=== PATIENT | female | born 2000 | race Caucasian/White ===

== ENCOUNTER 2020-06-27 17:26 | Outpatient (REF) | payer MEDICAID, SELFPAY | END 2020-06-27 17:27 | disposition home or self-care (01) | LOC: HO.LAB 17:26 | PROVIDERS: PCP Nurse Practitioner Pediatrics; Visit Provider Internal Medicine | DX: Z12.31 Encounter for screening mammogram for malignant neoplasm of breast (principal) | CPT/HCPCS: 36415; C9803; U0003 ==

== ENCOUNTER 2020-09-06 12:50 | Outpatient (REF) | payer MEDICAID, SELFPAY ==
[2020-09-06 13:58] LABS: COVID-19 Test Negative (Negative); IDNOW Serial# 55D5AD1C
== END 2020-09-06 12:51 | disposition home or self-care (01) ==
LOC: HO.LAB 12:50
PROVIDERS: Visit Provider Internal Medicine
DX: Z20.822 Contact with and (suspected) exposure to COVID-19 (principal)
CPT/HCPCS: 36415; 87635; C9803

== ENCOUNTER → 2021-10-22 10:21 | Outpatient (BNV) | payer MEDICAID, SELFPAY | PROVIDERS: PCP Nurse Practitioner; Visit Provider Internal Medicine | DX: D64.9 Anemia, unspecified (principal) | CPT/HCPCS: 99203; 99213 ==

== ENCOUNTER 2022-05-13 09:52 | Outpatient (REF) | payer MEDICAID, SELFPAY ==
[2022-05-13 10:27] LABS: MANUAL DIFF FLAG NO
[2022-05-13 11:44] LABS: Basophils Percent Auto 0.5 % (0-2); Eosinophils Absolute Auto 0.7 X10*3/uL (0.0-0.4); Eosinophils Percent Auto 11.3 % (0-4); Hematocrit 39.4 % (37.0-47.0); Hemoglobin 12.6 g/dl (12.0-16.0); Imm Gran Abs Auto 0.01 X10*3/uL (0.00-0.03); Imm Gran Pct Auto 0.2 % (0.0-0.4); Lymphocytes Absolute Auto 2.5 X10*3/uL (1.2-4.9); Lymphocytes Percent Auto 40.6 % (20-40); Mean Corpuscular Volume 90.6 fL (80.0-98.0); Mean Platelet Volume 11.6 fL (9.4-12.3); Monocytes Absolute Auto 0.7 X10*3/uL (0.1-1.2); Neutrophils Absolute Auto 2.3 x10*3/uL (2.0-8.3); Neutrophils Percent Auto 36.4 % (45-73); Platelet Count 297 X10*3/uL (160-400); Red Blood Count 4.35 X10*6/uL (4.20-5.50); Red Cell Distribution Width 12.7 % (11.0-16.0); White Blood Count 6.2 X10*3/uL (4.8-10.8)
[2022-05-13 14:39] LABS: Alanine Aminotransferase 15 U/L (0-31); Albumin Level 4.2 g/dL (3.5-5.0); Alkaline Phosphatase 42 U/L (39-117); Aspartate Amino Transferase 15 U/L (5-31); Bilirubin Direct < 0.2 mg/dL (0.0-0.5); Bilirubin Total 0.5 mg/dL (0.0-1.0); Total Protein 6.9 g/dL (6.5-8.0)
== END 2022-05-13 09:53 | disposition home or self-care (01) ==
LOC: HO.LAB 09:52
PROVIDERS: PCP Nurse Practitioner; Visit Provider Nurse Practitioner
DX: A04.8 Other specified bacterial intestinal infections (principal); R10.13 Epigastric pain; K21.9 Gastro-esophageal reflux disease without esophagitis
CPT/HCPCS: 36415; 80076; 85025; 99212

== ENCOUNTER 2022-05-20 11:03 | Outpatient (REF) | payer MEDICAID, SELFPAY | END 2022-05-20 11:04 | disposition home or self-care (01) | LOC: HO.LNP 11:03 | PROVIDERS: Visit Provider Nurse Practitioner | DX: A04.8 Other specified bacterial intestinal infections (principal) | CPT/HCPCS: 87338 ==

== ENCOUNTER 2022-07-13 07:28 | Outpatient (REF) | payer MEDICAID, SELFPAY ==
--- NOTE | ~2022-07-13 | US_ITS ---
EXAMINATION: US ABDOMEN COMPLETE CLINICAL INFORMATION: H. Pylori infection. COMPARISON: None TECHNIQUE: Real-time imaging of the abdominal viscera. FINDINGS: PANCREAS: Normal. ABDOMINAL AORTA: The proximal, mid, and distal segments are normal in caliber. INFERIOR VENA CAVA: Visualized portions are normal. LIVER: Normal. The liver is normal in size. The liver contour is normal. Parenchymal echogenicity is normal. No focal hepatic lesion. There is no intrahepatic biliary duct dilatation seen. GALLBLADDER: Normal. The gallbladder is physiologically distended without evidence of stones, sludge, polyps, wall thickening or pericholecystic fluid. COMMON BILE DUCT: Normal in caliber measuring 0.24 cm in diameter. RIGHT KIDNEY: Normal. No hydronephrosis. No renal calculi or focal parenchymal lesions. The kidney measures 12.4 cm in maximum dimension. LEFT KIDNEY: Normal. No hydronephrosis. No renal calculi or focal parenchymal lesions. The kidney measures 11.7 cm in maximum dimension. SPLEEN: Normal. The spleen measures 10.9 cm in maximum dimension. FREE FLUID: None. US/US abdomen complete IMPRESSION: Unremarkable examination.
== END 2022-07-13 07:29 | disposition home or self-care (01) ==
LOC: HO.US 07:28
PROVIDERS: Visit Provider Nurse Practitioner
DX: A04.8 Other specified bacterial intestinal infections (principal)
CPT/HCPCS: 76700

== ENCOUNTER → 2022-07-22 08:36 | Outpatient (BNVA) | payer MEDICAID, SELFPAY | PROVIDERS: PCP Nurse Practitioner; Visit Provider Nurse Practitioner | DX: A04.8 Other specified bacterial intestinal infections (principal); K21.9 Gastro-esophageal reflux disease without esophagitis; R19.5 Other fecal abnormalities; Z79.899 Other long term (current) drug therapy | CPT/HCPCS: 99212 ==

== ENCOUNTER → 2022-10-14 08:59 | Outpatient (BNVA) | payer MEDICAID, SELFPAY | PROVIDERS: PCP Registered Nurse; Visit Provider Nurse Practitioner | DX: K21.9 Gastro-esophageal reflux disease without esophagitis (principal); A04.8 Other specified bacterial intestinal infections; R15.9 Full incontinence of feces | CPT/HCPCS: 99212 ==

== ENCOUNTER 2023-04-20 08:45 | Outpatient (AMB) | payer MEDICAID, SELFPAY ==
--- NOTE | 2023-04-20 08:49 | A.OFFVIS_ITS ---
Intake Vital Signs 04/20/23 08:52 Height 5 ft 11 in Weight 264 lb 8.875 oz BMI 36.9 BP 124/58 L Blood Pressure Location Lt brachial Position Sitting Pulse 69 Intake Visit Reasons: 6 month follow up Allergies No Known Allergies Allergy (Verified 10/14/22 09:07) HPI 6 month follow up HPI Details Assessment & Plan (1) GERD (gastroesophageal reflux diseas e): Code(s): K21.9 - Gastro-esophageal reflux disease without esophagitis Plan: She continues to do well on her bid famotidine. I know I would be happy to see her at. regular intervals but she also contuse cuss whether not her primary care provider wants to prescribe her famotidine going forward since she has minimal other comorbid health problems it is unlikely that they will be any worsening of this condition. For now will set up a 6 month follow-up and if she decides to follow with her primary C can simply cancel this arrangement. (2) H. pylori infection: Comment: Confirmed eradicated by stool antigen 04/2022 Code(s): A04.8 - Other specified bacterial intestinal infections (3) Loose stools: Code(s): R19.5 - Other fecal abnormalities TODAY'S VISIT She had a week of diarrhea, but it has resolved. She no longer takes famotidine and has been generally well. She appointment with me because she had some diarrhea a couple of weeks ago that went on for week but then it resolved without any treatment. This made her realize it was probably something she ate or passing GI virus. ROV prn. [facility] Medical History Pilonidal cyst Depression Anemia Surgical History History of back surgery Family History Maternal Grandmother Colon cancer Maternal Uncle Colon cancer Mother History of hysterectomy Hidradenitis suppurativa (Reviewed 04/20/23 @ 08:53 by NICOLE Plunkett Household Members: Family Housing: House Are you a primary daycare manager to a significant other at home: No Do you presently have visiting nurse or other home services: No Alcohol intake: current Alcohol intake frequency: holidays/special occasions only Patient Tobacco Use Status: Never used Tobacco service: No Current occupational status: employed [employer] Denies fatigue, Denies fever(s), Denies night sweats, Denies poor appetite and Denies weight loss Eyes Details: glasses Reports requires corrective lenses ENT Reports Normal hearing present, Denies dental pain, Denies dysphagia, Denies hearing loss, Denies mouth pain, Denies odynophagia, Denies throat swelling, Denies tongue swelling and Reports other (Dentition adequate) Card Reports no additional complaints Resp Reports no additional complaints GI Denies abdominal pain, Denies melena, Denies bloating, Denies hematochezia, Denies constipation, Denies GI cramping, Denies dysphagia, Denies excessive flatus, Denies early satiety, Denies heartburn, Denies diarrhea, Denies nausea, Denies odynophagia, Denies vomiting and Denies hematemesis Skin/Breast Denies pruritus, Denies lesions, Denies rash and Denies jaundice Neuro Reports Normal hearing present and Denies Abnormal speech present Endo Denies fatigue Aller/Immun Denies throat swelling and Denies tongue swelling Physical Exam Vital Signs: Last Vital Signs Pulse 69 04/20/23 08:52 BP 124/58 L 04/20/23 08:52 BMI result Body Mass Index 36.9 Const General: cooperative, no acute distress, well developed and well groomed Nutritional Appearance: well nourished and obese Orientation/consciousness: oriented to person, oriented to place and oriented to time Limitations: No language barrier HEENT Head: Yes normocephalic and Yes atraumatic Eyes General: appearance normal, both eyes and all related structures Pupils: Equal, round and reactive pupils present Neck Neck: Yes normal visual inspection and Yes no lymphadenopathy Thyroid: Thyroid normal Resp Effort & Inspection: normal respiratory effort and able to speak in complete sentences Auscultation: clear to auscultation bilaterally Cardio Rate: regular rate Rhythm: regular rhythm Heart sounds: Normal, physiologic split S2 sound present Peripheral pulses: radial pulses present and posterior tibial pulses present GI Inspection: No distended, Yes Abdominal panniculus present and Yes obesity Palpation (GI): Soft to palpation, nontender, no guarding, not rigid and No hepatosplenomegaly present Percussion: Yes normal to percussion Auscultation: normal bowel sounds Rectal Exam - Female: deferred Skin General skin exam: no rashes or lesions noted, turgor normal, skin not dry, no jaundice, No spider nevi and no striae Rashes: no rashes Nails: normal Neuro General: oriented to person, oriented to place and oriented to time Cranial nerves: Yes Equal, round and reactive pupils present and Yes Normal hearing present Speech: No Abnormal speech present Extrem General: Yes normal to inspection, No clubbing, No cyanosis and No edema Psych Appearance: grossly normal and well kempt Mental Status: mental status grossly normal Speech and movement: Normal speech and movement present Affect: normal affect Attitude: cooperative Thought process: Normal thought process present and not confabulating Thought content: Normal thought content present Insight: Fair insight present (Psych) Judgement: Fair judgement present (Psych) Assessment & Plan Assessment & Plan (1) GERD (gastroesophageal reflux disease): Code(s): K21.9 - Gastro-esophageal reflux disease without esophagitis (2) H. pylori infection: Comment: Confirmed eradicated by stool antigen 04/2022 Code(s): A04.8 - Other specified bacterial intestinal infections (3) Loose stools: Code(s): R19.5 - Other fecal abnormalities Plan She had a week of diarrhea, but it has resolved. She no longer takes famotidine and has been generally well. She appointment with me because she had some diarrhea a couple of weeks ago that went on for week but then it resolved without any treatment. This made her realize it was probably something she ate or passing GI virus. ROV prn. Coding Level of Care Code Est Pt Level 3 (45640) Diagnoses GERD (gastroesophageal reflux disease) K21.9 H. pylori infection A04.8 Loose stools R19.5
--- NOTE | 2023-04-20 08:49 | MHC.OFFVIS ---
Intake Vital Signs 04/20/23 08:52 Height 5 ft 11 in Weight 264 lb 8.875 oz BMI 36.9 BP 124/58 L Blood Pressure Location Lt brachial Position Sitting Pulse 69 Intake Visit Reasons: 6 month follow up Intake Note: Estrella presents in the office as a 6 month follow up. CC: She states that she is not having any concerns. She was having diarrhea but it has since subsided. Allergies No Known Allergies Allergy (Verified 10/14/22 09:07) [facility] Medical History Pilonidal cyst Depression Anemia Surgical History History of back surgery Family History Maternal Grandmother Colon cancer Maternal Uncle Colon cancer Mother History of hysterectomy Hidradenitis suppurativa Social History Household Members: Family Housing: House Are you a primary home health care worker to a significant other at home: No Do you presently have visiting nurse or other home services: No Alcohol intake: current Alcohol intake frequency: holidays/special occasions only Patient Tobacco Use Status: Never used Tobacco service: No Current occupational status: employed Coding
[2023-04-20 08:52] VITALS: BP 124/58; PULSE 69; BMI 36.9
== END 2023-04-20 09:18 | disposition home or self-care (01) ==
PROVIDERS: PCP Registered Nurse; Visit Provider Nurse Practitioner
DX: K21.9 Gastro-esophageal reflux disease without esophagitis (principal); A04.8 Other specified bacterial intestinal infections; R19.5 Other fecal abnormalities
CPT/HCPCS: 99213

== ENCOUNTER → 2023-04-20 08:45 | Outpatient (BNVA) | payer MEDICAID, SELFPAY | PROVIDERS: PCP Registered Nurse; Visit Provider Nurse Practitioner | DX: K21.9 Gastro-esophageal reflux disease without esophagitis (principal); R19.5 Other fecal abnormalities; A04.8 Other specified bacterial intestinal infections | CPT/HCPCS: 99212 ==

== ENCOUNTER 2023-07-09 10:29 | Outpatient (REF) | payer MEDICAID, SELFPAY ==
[2023-07-09 14:24] LABS: MANUAL DIFF FLAG NO
[2023-07-09 14:30] LABS: Basophils Percent Auto 0.5 % (0-2); Eosinophils Absolute Auto 0.6 X10*3/uL (0.0-0.4); Hematocrit 35.1 % (37.0-47.0); Hemoglobin 10.9 g/dl (12.0-16.0); Imm Gran Abs Auto 0.01 X10*3/uL (0.00-0.03); Imm Gran Pct Auto 0.2 % (0.0-0.4); Lymphocytes Absolute Auto 2.4 X10*3/uL (1.2-4.9); Lymphocytes Percent Auto 41.1 % (20-40); Mean Corpuscular HGB Conc 31.1 g/dl (31.0-35.0); Mean Corpuscular Hemoglobin 25.6 pg (27.0-33.0); Mean Corpuscular Volume 82.6 fL (80.0-98.0); Mean Platelet Volume 11.8 fL (9.4-12.3); Monocytes Absolute Auto 0.7 X10*3/uL (0.1-1.2); Monocytes Percent Auto 11.7 % (2-11); Neutrophils Absolute Auto 2.2 x10*3/uL (2.0-8.3); Neutrophils Percent Auto 36.5 % (45-73); Platelet Count 308 X10*3/uL (160-400); Red Blood Count 4.25 X10*6/uL (4.20-5.50); Red Cell Distribution Width 14.6 % (11.0-16.0); White Blood Count 5.9 X10*3/uL (4.8-10.8)
[2023-07-09 14:53] LABS: Alanine Aminotransferase 13 U/L (0-31); Albumin Level 4.3 g/dL (3.5-5.0); Alkaline Phosphatase 39 U/L (39-117); Anion Gap 14 (12-20); Aspartate Amino Transferase 13 U/L (5-31); Bilirubin Total 0.4 mg/dL (0.0-1.0); Blood Urea Nitrogen 11 mg/dL (9-16); Calcium 9.8 mg/dL (8.4-10.2); Carbon Dioxide 24 mmol/L (22-29); Chloride 105 mmol/L (96-108); Cholesterol 198 mg/dL (<200); Estimated Glomerular Filt Rate > 60; Glucose Random 73 mg/dL (60-115); HDL Cholesterol 56 mg/dL (>40); LDL Cholesterol Calculated 125 mg/dL (<100); Potassium 4.7 mmol/L (3.3-5.1); Sodium 138 mmol/L (135-145); Total Protein 7.9 g/dL (6.5-8.0); Triglycerides 88 mg/dL (<150)
[2023-07-09 14:58] LABS: TSH reflex Free T4 1.41 uIU/mL (0.32-4.0)
[2023-07-09 15:06] LABS: Estimated Average Glucose 111 mg/dL; Hemoglobin A1c % 5.5 % (<6.0)
[2023-07-10 03:50] LABS: HIV AB/AG Nonreactive (Nonreactive); HIV Num 1 0.06 S/CO (0.00-0.99)
[2023-07-10 14:03] LABS: C. trachomatis RNA TMA NOT DETECTED (NOT DETECTED); Candida glabrata RNA NOT DETECTED (NOT DETECTED); Candida species RNA NOT DETECTED (NOT DETECTED); N. gonorrhoeae RNA TMA NOT DETECTED (NOT DETECTED); Trichomonas vaginalis RNA NOT DETECTED (NOT DETECTED)
[2023-07-12 15:33] LABS: HCV Log PCR <1.18 NOT DETECTED Log IU/mL (NOT DETECTED); HepC Viral Load <15 NOT DETECTED IU/mL (NOT DETECTED)
[2023-07-12 20:28] LABS: RPR Rapid Plasma Reagin NON-REACTIVE (NON-REACTIVE)
== END 2023-07-09 10:30 | disposition home or self-care (01) ==
LOC: HO.CHCLDS 10:29
PROVIDERS: Visit Provider Registered Nurse
DX: Z00.00 Encounter for general adult medical examination without abnormal findings (principal); N89.8 Other specified noninflammatory disorders of vagina
CPT/HCPCS: 36415; 80053; 80061; 81513; 83036; 84443; 85025; 86592; 87389; 87481; 87491; 87522; 87591; 87661

== ENCOUNTER 2023-10-11 11:20 | Outpatient (REF) | payer MEDICAID, SELFPAY ==
[2023-10-11 14:44] LABS: Basophils Percent Auto 0.8 % (0-2); Eosinophils Absolute Auto 0.4 X10*3/uL (0.0-0.4); Eosinophils Percent Auto 10.1 % (0-4); Hematocrit 33.6 % (37.0-47.0); Hemoglobin 10.3 g/dl (12.0-16.0); Imm Gran Abs Auto 0.01 X10*3/uL (0.00-0.03); Imm Gran Pct Auto 0.3 % (0.0-0.4); Lymphocytes Absolute Auto 1.3 X10*3/uL (1.2-4.9); Lymphocytes Percent Auto 32.5 % (20-40); MANUAL DIFF FLAG SCAN; Mean Corpuscular HGB Conc 30.7 g/dl (31.0-35.0); Mean Corpuscular Hemoglobin 24.6 pg (27.0-33.0); Mean Corpuscular Volume 80.2 fL (80.0-98.0); Mean Platelet Volume 11.9 fL (9.4-12.3); Monocytes Absolute Auto 0.8 X10*3/uL (0.1-1.2); Monocytes Percent Auto 20.2 % (2-11); Neutrophils Absolute Auto 1.4 x10*3/uL (2.0-8.3); Neutrophils Percent Auto 36.1 % (45-73); Platelet Count 263 X10*3/uL (160-400); Red Blood Count 4.19 X10*6/uL (4.20-5.50); Red Cell Distribution Width 15.3 % (11.0-16.0); SCAN SMEAR FLAG 1
[2023-10-11 15:05] LABS: C Reactive Protein < 0.10 mg/dL (< or = 0.50); Iron 25 mcg/dL (30-160); Percent Iron Saturation 7 % (15-50); Total Iron Binding Capacity 356 mcg/dL (228-428); Unsaturated Iron Binding 331 ug/dL
[2023-10-11 15:18] LABS: Vitamin B12 480 pg/mL (200-900)
[2023-10-11 15:28] LABS: SLIDE REVIEW VERIFIED
[2023-10-11 15:31] LABS: Ferritin 12 ng/mL (10-122); Vitamin D 25-OH Total 15.1 ng/mL (>30)
[2023-10-11 15:41] LABS: Monotest Negative (Negative)
[2023-10-11 19:48] LABS: Erythrocyte Sedimentation Rate 12 MM/HR (0-20)
[2023-10-12 08:45] LABS: HIV Num 1 0.07 S/CO (0.00-0.99)
[2023-10-12 08:46] LABS: HIV AB/AG Nonreactive (Nonreactive)
== END 2023-10-11 11:21 | disposition home or self-care (01) ==
LOC: HO.CHCLDS 11:20
PROVIDERS: Registered Nurse; Visit Provider Family Medicine
DX: R59.0 Localized enlarged lymph nodes (principal); D64.9 Anemia, unspecified
CPT/HCPCS: 36415; 82306; 82607; 82728; 83540; 85025; 85652; 86140; 86308; 87389

== ENCOUNTER 2023-10-19 14:05 | Outpatient (REF) | payer MEDICAID, SELFPAY ==
--- NOTE | ~2023-10-19 | US_ITS ---
EXAMINATION: US SOFT TISSUE HEAD/NECK CLINICAL INFORMATION: Localized enlarged lymph nodes, persistent mass in right occipital chain. Question enlarged lymph node right occipital region. COMPARISON: None available. TECHNIQUE: Linear transducer grayscale and color Doppler examination of the right occipital area. FINDINGS: Targeted ultrasound images were obtained by the drafter structural of the area of concern as indicated by the patient in the right occipital region. There is a 1.0 x 0.4 x 1.2 cm hypoechoic, wider than tall, complex cystic versus solid mass in the area of concern indicated by the patient in the soft tissues of the right occipital region. No internal vascularity was demonstrated. Margins are mildly irregular. Radiologist was not in attendance. Images were later provided for interpretation. US/US soft tiss head and/or neck IMPRESSION: A 1.2 cm complex lesion in the soft tissues in the area of concern indicated by the patient to the right occipital region of uncertain etiology. Correlation with clinical exam recommended to determine further management including possible additional imaging, treatment, biopsy or follow-up. Follow-up ultrasound could be considered in 3 months.
== END 2023-10-19 14:06 | disposition home or self-care (01) ==
LOC: HO.US 14:05
PROVIDERS: PCP Registered Nurse; Visit Provider Family Medicine
DX: R59.0 Localized enlarged lymph nodes (principal)
CPT/HCPCS: 76536

== ENCOUNTER 2023-11-22 09:49 | Outpatient (REF) | payer MEDICAID, SELFPAY ==
[2023-11-22 13:15] LABS: MANUAL DIFF FLAG NO
[2023-11-22 13:20] LABS: Basophils Percent Auto 0.9 % (0-2); Eosinophils Absolute Auto 0.3 X10*3/uL (0.0-0.4); Eosinophils Percent Auto 6.6 % (0-4); Hematocrit 30.3 % (37.0-47.0); Hemoglobin 9.4 g/dl (12.0-16.0); Lymphocytes Percent Auto 44.5 % (20-40); Mean Corpuscular Hemoglobin 24.9 pg (27.0-33.0); Mean Corpuscular Volume 80.4 fL (80.0-98.0); Monocytes Absolute Auto 0.5 X10*3/uL (0.1-1.2); Monocytes Percent Auto 10.8 % (2-11); Neutrophils Absolute Auto 1.7 x10*3/uL (2.0-8.3); Neutrophils Percent Auto 37.2 % (45-73); Platelet Count 279 X10*3/uL (160-400); Red Blood Count 3.77 X10*6/uL (4.20-5.50); Red Cell Distribution Width 17.2 % (11.0-16.0); White Blood Count 4.5 X10*3/uL (4.8-10.8)
[2023-11-22 13:45] LABS: Unsaturated Iron Binding 290 ug/dL
[2023-11-22 13:47] LABS: Iron 21 mcg/dL (30-160); Percent Iron Saturation 7 % (15-50); Total Iron Binding Capacity 311 mcg/dL (228-428)
[2023-11-22 15:01] LABS: Ferritin 21 ng/mL (10-122); HCG Quantitative < 2 mIU/mL; Vitamin D 25-OH Total 19.6 ng/mL (>30)
[2023-11-23 14:34] LABS: Follicle Stimulating Hormone 8.8 mIU/mL; Prolactin 10.1 ng/mL
[2023-11-23 17:47] LABS: Cytomegalovirus Ab IgG <0.60 U/mL; Cytomegalovirus Ab IgM <30.00 AU/mL; EBV-VCA IgG Ab >750.00 U/mL; EBV-VCA IgM Ab <36.00 U/mL
[2023-11-26 17:53] LABS: Testosterone, Free 3.8 pg/mL (0.1-6.4); Testosterone, Total 26 ng/dL (2-45)
== END 2023-11-22 09:50 | disposition home or self-care (01) ==
LOC: HO.CHCLDS 09:49
PROVIDERS: Family Medicine; Visit Provider Registered Nurse
DX: R59.0 Localized enlarged lymph nodes (principal); D50.9 Iron deficiency anemia, unspecified; E55.9 Vitamin D deficiency, unspecified; N92.6 Irregular menstruation, unspecified
CPT/HCPCS: 36415; 82306; 82728; 83001; 83540; 84146; 84402; 84403; 84702; 85025; 86644; 86645; 86664; 86665

== ENCOUNTER 2024-03-15 10:52 | Outpatient (AMB) | payer MEDICAID, SELFPAY ==
[2024-03-15 10:54] VITALS: BP 105/51; PULSE 80; BMI 35.5
--- NOTE | 2024-03-15 10:54 | A.OFFVIS_ITS ---
Vital Signs 03/15/24 10:54 Height 5 ft 11 in Weight 254 lb 6.615 oz BMI 35.5 BP 105/51 L Blood Pressure Location Rt brachial Position Sitting Pulse 80 Intake Visit Reasons: Pt request abd pain Intake Note: Patient in office today in follow up for abdominal pain. CC: Patient c/o diarrhea like if I was taking laxative , nausea, and epigastric pain that began at the beginning of this month. Per patient she gets this symptoms about twice a week. Web Site Designer Required: No Accompanied by: Self / Same As Patient Allergies No Known Allergies Allergy (Verified 03/15/24 10:55) HPI HPI Pt request abd pain: Details: Assessment & Plan (1) GERD (gastroesophageal reflux disease): Code(s): K21.9 - Gastro-esophageal reflux disease without esophagitis (2) H. pylori infection: Comment: Confirmed eradicated by stool antigen 04/2022 Code(s): A04.8 - Other specified bacterial intestinal infections (3) Loose stools: Code(s): R19.5 - Other fecal abnormalities Plan She had a week of diarrhea, but it has resolved. She no longer takes famotidine and has been generally well. She appointment with me because she had some diarrhea a couple of weeks ago that went on for week but then it resolved without any treatment. This made her realize it was probably something she ate or passing GI virus. ROV prn. TODAY'S VISIT She continues to have worsening diarrhea with associated nausea and epigastric pain that is 7/10. It is describes as colicky and will spread at times to the periumbilical and suprapubic area. No diet changes, only new meds are iron oral and vit D. No fevers/chills, no raw or undercooked foods, no known sick contacts. Will get blood and stool samples to exclude infection vs food allergies vx IBD. ROV 6 weeks. [facility] Medical History Pilonidal cyst Depression Anemia Surgical History History of back surgery Family History Maternal Grandmother Colon cancer Maternal Uncle Colon cancer Mother History of hysterectomy Hidradenitis suppurativa Social History Household Members: Family Housing: House Are you a primary respite care provider to a significant other at home: No Do you presently have visiting nurse or other home services: No Alcohol intake: current Alcohol intake frequency: holidays/special occasions only Patient Tobacco Use Status: Never used Tobacco service: No Current occupational status: employed [employer] Denies fatigue, Denies fever(s), Denies night sweats, Denies poor appetite and Denies weight loss ENT Reports Normal hearing present, Denies dental pain, Denies dysphagia, Denies hearing loss, Denies mouth pain, Denies odynophagia, Denies throat swelling, Denies tongue swelling and Reports other (Dentition adequate) Card Reports no additional complaints Resp Reports no additional complaints GI Details: Denies abdominal pain, Denies melena, Denies bloating, Denies hematochezia, Denies constipation, Reports GI cramping, Denies dysphagia, Denies excessive flatus, Denies early satiety, Denies heartburn, Reports diarrhea, Denies nausea, Denies odynophagia, Denies vomiting and Denies hematemesis Skin/Breast Denies pruritus, Denies lesions, Denies rash and Denies jaundice Neuro Reports Normal hearing present and Denies Abnormal speech present Endo Denies fatigue Aller/Immun Denies throat swelling and Denies tongue swelling Physical Exam Vital Signs: Last Vital Signs Pulse 80 03/15/24 10:54 BP 105/51 L 03/15/24 10:54 BMI result Body Mass Index 35.5 Const General: cooperative, no acute distress, well developed and well groomed Nutritional Appearance: well nourished and obese Orientation/consciousness: oriented to person, oriented to place and oriented to time Limitations: No language barrier HEENT Head: Yes normocephalic and Yes atraumatic Eyes General: appearance normal, both eyes and all related structures Pupils: Equal, round and reactive pupils present Neck Neck: Yes normal visual inspection and Yes no lymphadenopathy Thyroid: Thyroid normal Resp Effort & Inspection: normal respiratory effort and able to speak in complete sentences Auscultation: clear to auscultation bilaterally Cardio Rate: regular rate Rhythm: regular rhythm Heart sounds: Normal, physiologic split S2 sound present Peripheral pulses: radial pulses present and posterior tibial pulses present GI Inspection: No distended, No Abdominal panniculus present and Yes obesity Palpation (GI): Soft to palpation, nontender, no guarding, not rigid and No hepatosplenomegaly present Percussion: Yes normal to percussion Auscultation: normal bowel sounds Rectal Exam - Female: deferred Skin General skin exam: no rashes or lesions noted, turgor normal, skin not dry, no jaundice, No spider nevi and no striae Rashes: no rashes Nails: normal Neuro General: oriented to person, oriented to place and oriented to time Cranial nerves: Yes Equal, round and reactive pupils present and Yes Normal hearing present Speech: No Abnormal speech present Extrem General: Yes normal to inspection, No clubbing, No cyanosis and No edema Psych Appearance: grossly normal and well kempt Mental Status: mental status grossly normal Speech and movement: Normal speech and movement present Affect: normal affect Attitude: cooperative Thought process: Normal thought process present and not confabulating Thought content: Normal thought content present Insight: Fair insight present (Psych) Judgement: Fair judgement present (Psych) Assessment & Plan Assessment & Plan (1) Acute diarrhea: Code(s): R19.7 - Diarrhea, unspecified Category: Medical (2) Epigastric pain: Code(s): R10.13 - Epigastric pain Category: Medical Plan She continues to have worsening diarrhea with associated nausea and epigastric pain that is 7/10. It is describes as colicky and will spread at times to the periumbilical and suprapubic area. No diet changes, only new meds are iron oral and vit D. No fevers/chills, no raw or undercooked foods, no known sick contacts. Will get blood and stool samples to exclude infection vs food allergies vx IBD. ROV 6 weeks. Orders: Orders Transglutaminase Ab IgG 03/15/24 R10.13 - Epigastric pain, R19.7 - Diarrhea, unspecified CDiff Gene PCR 03/15/24 R10.13 - Epigastric pain, R19.7 - Diarrhea, unspecified GI Panel 03/15/24 R10.13 - Epigastric pain, R19.7 - Diarrhea, unspecified Pancreatic Elastase-1 03/15/24 R10.13 - Epigastric pain, R19.7 - Diarrhea, unspecified Rast Allergen 03/15/24 R10.13 - Epigastric pain, R19.7 - Diarrhea, unspecified Transglutaminase IgA 03/15/24 R10.13 - Epigastric pain, R19.7 - Diarrhea, unspecified C Reactive Protein 03/15/24 R10.13 - Epigastric pain, R19.7 - Diarrhea, unspecified Coding Level of Care Code Est Pt Level 3 (94956) Diagnoses Acute diarrhea R19.7 Epigastric pain R10.13
== END 2024-03-15 11:29 | disposition home or self-care (01) ==
PROVIDERS: PCP Registered Nurse; Visit Provider Nurse Practitioner
DX: R19.7 Diarrhea, unspecified (principal); R10.13 Epigastric pain
CPT/HCPCS: 99213

== ENCOUNTER 2024-03-15 10:52 | Outpatient (REF) | payer MEDICAID, SELFPAY ==
[2024-03-15 12:45] LABS: C Reactive Protein < 0.10 mg/dL (< or = 0.50)
[2024-03-17 12:42] LABS: Transglutaminase Ab IgG <1.0 U/mL; Transglutaminase IgA <1.0 U/mL
== END 2024-03-15 10:53 | disposition home or self-care (01) ==
LOC: HO.LAB 10:52
PROVIDERS: PCP Registered Nurse; Visit Provider Nurse Practitioner
DX: R10.13 Epigastric pain (principal); R19.7 Diarrhea, unspecified
CPT/HCPCS: 36415; 86140; 86364; 99212

== ENCOUNTER 2024-03-28 13:38 | Outpatient (REF) | payer MEDICAID, SELFPAY ==
[2024-03-28 14:39] LABS: CDiff Gene PCR NEGATIVE (Negative)
[2024-03-28 15:11] LABS: Adenovirus F 40/41 Not Detected (Not Detect.); Astrovirus Not Detected (Not Detect.); Campylobacter Not Detected (Not Detect.); Cryptosporidium Not Detected (Not Detect.); Cyclospora cayetanensis Not Detected (Not Detect.); E. coli EAEC Detected (Not Detect.); E. coli EPEC Not Detected (Not Detect.); E. coli ETEC Not Detected (Not Detect.); E. coli STEC Not Detected (Not Detect.); Entamoeba histolytica Not Detected (Not Detect.); Giardia lamblia Not Detected (Not Detect.); Norovirus GI/GII Not Detected (Not Detect.); Plesiomonas shigelloides Not Detected (Not Detect.); Rotavirus A Not Detected (Not Detect.); Salmonella Not Detected (Not Detect.); Sapovirus Not Detected (Not Detect.); Shigella sp./EIEC Not Detected (Not Detect.); Vibrio Not Detected (Not Detect.); Vibrio Cholerae Not Detected (Not Detect.); Yersinia enterocolitica Not Detected (Not Detect.)
[2024-04-07 18:49] LABS: Pancreatic Elastase-1 >500 mcg/g
== END 2024-03-28 13:39 | disposition home or self-care (01) ==
LOC: HO.LNP 13:38
PROVIDERS: Visit Provider Nurse Practitioner
DX: R19.7 Diarrhea, unspecified (principal); R10.13 Epigastric pain
CPT/HCPCS: 82656; 87493; 87507

== ENCOUNTER 2024-05-02 12:43 | Outpatient (AMB) | payer MEDICAID, SELFPAY ==
[2024-05-02 12:46] VITALS: BP 132/59; PULSE 80; BMI 35.5
--- NOTE | 2024-05-02 12:46 | A.OFFVIS_ITS ---
Vital Signs 05/02/24 12:46 Height 5 ft 11 in Weight 254 lb 13.67 oz BMI 35.5 BP 132/59 L Blood Pressure Location Lt brachial Position Sitting Pulse 80 Intake Visit Reasons: 6 week follow up Intake Note: Estrella returns in 6 weeks follow up of labs. CC: Patient states that she is not having so much diarrhea now. She reports epigastric pain and nausea. Assistant Portfolio Manager Required: No Accompanied by: Grand Parent Allergies No Known Allergies Allergy (Verified 05/02/24 12:51) HPI HPI 6 week follow up: Details: Assessment & Plan (1) Acute diarrhea: Code(s): R19.7 - Diarrhea, unspecified Category: Medical (2) Epigastric pain: Code(s): R10.13 - Epigastric pain Category: Medical Plan She continues to have worsening diarrhea with associated nausea and epigastric pain that is 7/10. It is describes as colicky and will spread at times to the periumbilical and suprapubic area. No diet changes, only new meds are iron oral and vit D. No fevers/chills, no raw or undercooked foods, no known sick contacts. Will get blood and stool samples to exclude infection vs food allergies vx IBD. ROV 6 weeks. Orders: Orders Transglutaminase Ab IgG 03/15/24 R10.13 - Epigastric pain, R19.7 - Diarrhea, unspecified CDiff Gene PCR 03/15/24 R10.13 - Epigastric pain, R19.7 - Diarrhea, unspecified GI Panel 03/15/24 R10.13 - Epigastric pain, R19.7 - Diarrhea, unspecified Pancreatic Elastase-1 03/15/24 R10.13 - Epigastric pain, R19.7 - Diarrhea, unspecified Rast Allergen 03/15/24 R10.13 - Epigastric pain, R19.7 - Diarrhea, unspecified Transglutaminase IgA 03/15/24 R10.13 - Epigastric pain, R19.7 - Diarrhea, unspecified C Reactive Protein 03/15/24 R10.13 - Epigastric pain, R19.7 - Diarrhea, unspecified LABS Laboratory Tests 03/15/24 03/28/24 12:06 12:40 C-Reactive Protein < 0.10 Stool Pancreat Elastase >500 Tiss Transglutamin IgG <1.0 Tiss Transglutamin IgA <1.0 RAST PANEL SHOWS NO SIGNIFICANT FOOD ALLERGIES 03/28/24-[address]: ORDERED: GI Panel Test Result Flag Reference Campylobacter Not Detected Not Detect. P. shigelloides Not Detected Not Detect. Salmonella Not Detected Not Detect. Vibrio Not Detected Not Detect. Vibrio Cholerae Not Detected Not Detect. Y. enterocolit. Not Detected Not Detect. E. coli EAEC Detected A Not Detect. E. coli EPEC Not Detected Not Detect. E. coli ETEC Not Detected Not Detect. E. coli STEC Not Detected Not Detect. E. coli O157 Not applicable Not Detect. E. coli containing the O157 antigen are a subset of Shiga-like toxin-producing E. coli (STEC). Shigella/EIEC Not Detected Not Detect. Cryptosporidium Not Detected Not Detect. Cyclospora Not Detected Not Detect. E. histolytica Not Detected Not Detect. Giardia lamblia Not Detected Not Detect. Adenovirus Not Detected Not Detect. Astrovirus Not Detected Not Detect. Norovirus Not Detected Not Detect. Rotavirus A Not Detected Not Detect. Sapovirus Not Detected Not Detect. TODAYS VISIT She is doing better after taking the levaquin (she could not tolerate the zithromax). This was for ecoli enteritis. But stool are still softer to loose and she has upper abd bloating after eating. At times it causes nausea and at times she will burp. I don't know if the abx has caused some gastric upset, or if this is lingering from the e coli. I think for now we will treat her with Carafate, as this will benefit gastric healing and looser stools. If this id not successful we will re test stools or consider further testing. ROV 6 weeks. [facility] Medical History Pilonidal cyst Depression Anemia Surgical History History of back surgery Family History Maternal Grandmother Colon cancer Maternal Uncle Colon cancer Mother History of hysterectomy Hidradenitis suppurativa Social History Household Members: Family Housing: House Are you a primary healthcare insurance sales agent to a significant other at home: No Do you presently have visiting nurse or other home services: No Alcohol intake: current Alcohol intake frequency: holidays/special occasions only Patient Tobacco Use Status: Never used Tobacco service: No Current occupational status: employed Review [employer] Const Denies fatigue, Denies fever(s), Denies night sweats, Denies poor appetite and Denies weight loss ENT Details: glasses Reports Normal hearing present, Denies dental pain, Denies dysphagia, Denies hearing loss, Denies mouth pain, Denies odynophagia, Denies throat swelling, Denies tongue swelling and Reports other (Dentition adequate) Card Reports no additional complaints Resp Reports no additional complaints GI Details: Reports abdominal pain, Denies melena, Reports bloating, Denies hematochezia, Denies constipation, Denies GI cramping, Denies dysphagia, Denies excessive flatus, Denies early satiety, Reports heartburn, Denies diarrhea, Reports loose stools, Denies nausea, Denies odynophagia, Denies vomiting and Denies hematemesis Skin/Breast Denies pruritus, Denies lesions, Denies rash and Denies jaundice Neuro Reports Normal hearing present and Denies Abnormal speech present Endo Denies fatigue Aller/Immun Denies throat swelling and Denies tongue swelling Physical Exam Vital Signs: Last Vital Signs Pulse 80 05/02/24 12:46 BP 132/59 L 05/02/24 12:46 BMI result Body Mass Index 35.5 Const General: cooperative, no acute distress, well developed and well groomed Nutritional Appearance: well nourished and obese Orientation/consciousness: oriented to person, oriented to place and oriented to time Limitations: No language barrier HEENT Head: Yes normocephalic and Yes atraumatic Eyes General: appearance normal, both eyes and all related structures Pupils: Equal, round and reactive pupils present Neck Neck: Yes normal visual inspection and Yes no lymphadenopathy Thyroid: Thyroid normal Resp Effort & Inspection: normal respiratory effort and able to speak in complete sentences Auscultation: clear to auscultation bilaterally Cardio Rate: regular rate Rhythm: regular rhythm Heart sounds: Normal, physiologic split S2 sound present Peripheral pulses: radial pulses present and posterior tibial pulses present GI Inspection: No distended and No Abdominal panniculus present Palpation (GI): Soft to palpation, nontender, no guarding, not rigid and No hepatosplenomegaly present Percussion: Yes normal to percussion Auscultation: normal bowel sounds Rectal Exam - Female: deferred Skin General skin exam: no rashes or lesions noted, turgor normal, skin not dry, no jaundice, No spider nevi and no striae Rashes: no rashes Nails: normal Neuro General: oriented to person, oriented to place and oriented to time Cranial nerves: Yes Equal, round and reactive pupils present and Yes Normal hearing present Speech: No Abnormal speech present Extrem General: Yes normal to inspection, No clubbing, No cyanosis and No edema Psych Appearance: grossly normal and well kempt Mental Status: mental status grossly normal Speech and movement: Normal speech and movement present Affect: normal affect Attitude: cooperative Thought process: Normal thought process present and not confabulating Thought content: Normal thought content present Insight: Limited insight present (Psych) Judgement: Limited judgement present (Psych) Assessment & Plan Assessment & Plan (1) Epigastric pain: Code(s): R10.13 - Epigastric pain Category: Medical (2) Acute diarrhea: Code(s): R19.7 - Diarrhea, unspecified Category: Medical (3) GERD (gastroesophageal reflux disease): Code(s): K21.9 - Gastro-esophageal reflux disease without esophagitis Category: Medical Plan She is doing better after taking the levaquin (she could not tolerate the zithromax). This was for ecoli enteritis. But stool are still softer to loose and she has upper abd bloating after eating. At times it causes nausea and at times she will burp. I don't know if the abx has caused some gastric upset, or if this is lingering from the e coli. I think for now we will treat her with Carafate, as this will benefit gastric healing and looser stools. If this id not successful we will re test stools or consider further testing. ROV 6 weeks. Medications: New sucralfate (Carafate) 1 g PO DAILY 30 tabs 3RF K21.9 - Gastro-esophageal reflux disease without esophagitis, R10.13 - Epigastric pain Coding Level of Care Code Est Pt Level 3 (70662) Diagnoses Epigastric pain R10.13 Acute diarrhea R19.7 GERD (gastroesophageal reflux disease) K21.9
== END 2024-05-02 13:39 | disposition home or self-care (01) ==
PROVIDERS: PCP Registered Nurse; Visit Provider Nurse Practitioner
DX: R10.13 Epigastric pain (principal); R19.7 Diarrhea, unspecified; K21.9 Gastro-esophageal reflux disease without esophagitis
CPT/HCPCS: 99213

== ENCOUNTER → 2024-05-02 12:43 | Outpatient (BNVA) | payer MEDICAID, SELFPAY | PROVIDERS: PCP Registered Nurse; Visit Provider Nurse Practitioner | DX: K21.9 Gastro-esophageal reflux disease without esophagitis (principal); R19.7 Diarrhea, unspecified; R10.13 Epigastric pain; R11.0 Nausea | CPT/HCPCS: 99212 ==

== ENCOUNTER 2024-05-29 13:53 | Outpatient (REF) | payer MEDICAID, SELFPAY ==
[2024-05-29 14:34] LABS: MANUAL DIFF FLAG NO
[2024-05-29 14:38] LABS: Basophils Percent Auto 0.5 % (0-2); Eosinophils Absolute Auto 0.5 X10*3/uL (0.0-0.4); Eosinophils Percent Auto 6.8 % (0-4); Hematocrit 35.3 % (37.0-47.0); Imm Gran Abs Auto 0.01 X10*3/uL (0.00-0.03); Imm Gran Pct Auto 0.2 % (0.0-0.4); Lymphocytes Percent Auto 44.7 % (20-40); Mean Corpuscular Hemoglobin 30.4 pg (27.0-33.0); Mean Corpuscular Volume 89.4 fL (80.0-98.0); Mean Platelet Volume 11.4 fL (9.4-12.3); Monocytes Absolute Auto 0.6 X10*3/uL (0.1-1.2); Monocytes Percent Auto 8.6 % (2-11); Neutrophils Absolute Auto 2.6 x10*3/uL (2.0-8.3); Neutrophils Percent Auto 39.2 % (45-73); Platelet Count 269 X10*3/uL (160-400); Red Blood Count 3.95 X10*6/uL (4.20-5.50); Red Cell Distribution Width 13.3 % (11.0-16.0); White Blood Count 6.6 X10*3/uL (4.8-10.8)
[2024-05-29 15:05] LABS: Alanine Aminotransferase 17 U/L (0-31); Albumin Level 4.4 g/dL (3.5-5.0); Alkaline Phosphatase 38 U/L (39-117); Anion Gap 12 (12-20); Aspartate Amino Transferase 18 U/L (5-31); Bilirubin Total 0.4 mg/dL (0.0-1.0); Blood Urea Nitrogen 11 mg/dL (9-16); Calcium 9.6 mg/dL (8.4-10.2); Carbon Dioxide 24 mmol/L (22-29); Chloride 108 mmol/L (96-108); Estimated Glomerular Filt Rate > 60; Glucose Random 81 mg/dL (60-115); Iron 43 mcg/dL (30-160); Percent Iron Saturation 16 % (15-50); Potassium 4.5 mmol/L (3.3-5.1); Sodium 139 mmol/L (135-145); Total Iron Binding Capacity 270 mcg/dL (228-428); Total Protein 7.4 g/dL (6.5-8.0); Unsaturated Iron Binding 227 ug/dL
[2024-05-29 15:19] LABS: Ferritin 50 ng/mL (10-122); Vitamin D 25-OH Total 24.4 ng/mL (>30)
[2024-06-01 11:08] LABS: TS Negative Control Passed; TS Panel A 0; TS Panel B 0; TS Positive Control Passed; TSpotTB Negative (Negative)
== END 2024-05-29 13:54 | disposition home or self-care (01) ==
LOC: HO.CHCLDS 13:53
PROVIDERS: Visit Provider Registered Nurse
DX: Z00.00 Encounter for general adult medical examination without abnormal findings (principal)
CPT/HCPCS: 36415; 80053; 82306; 82728; 83540; 85025; 86481

== ENCOUNTER 2024-06-13 12:51 | Outpatient (AMB) | payer MEDICAID, SELFPAY ==
--- NOTE | 2024-06-13 12:56 | MHC.OFFVIS ---
Vital Signs 06/13/24 12:57 Height 5 ft 11 in Weight 251 lb 5.231 oz BMI 35.0 BP 147/67 H Blood Pressure Location Lt brachial Position Sitting Pulse 69 Intake Visit Reasons: Follow up 6 weeks Intake Note: Estrella presents in office today in follow up of epigastric pain. CC: Patient states that she is having a lot of sharp stomach pain, loose stools and diarrhea. She states that the pain is worse after eating. She also reports nausea. She would like to know if she does not have E Coli anymore and would like to have EGD done. Operating Room Tech Required: No Accompanied by: Grand Parent Allergies No Known Allergies Allergy (Verified 06/13/24 13:09) HPI HPI Follow up 6 weeks: Details: Assessment & Plan (1) Epigastric pain: Code(s): R10.13 - Epigastric pain Category: Medical (2) Acute diarrhea: Code(s): R19.7 - Diarrhea, unspecified Category: Medical (3) GERD (gastroesophageal reflux disease): Code(s): K21.9 - Gastro-esophageal reflux disease without esophagitis Category: Medical Plan She is doing better after taking the levaquin (she could not tolerate the zithromax). This was for ecoli enteritis. But stool are still softer to loose and she has upper abd bloating after eating. At times it causes nausea and at times she will burp. I don't know if the abx has caused some gastric upset, or if this is lingering from the e coli. I think for now we will treat her with Carafate, as this will benefit gastric healing and looser stools. If this id not successful we will re test stools or consider further testing. ROV 6 weeks. Medications: New sucralfate (Carafate) 1 g PO DAILY 30 tabs 3RF K21.9 - Gastro-esophageal reflux disease without esophagitis, R10.13 - Epigastric pain TODAY'S VISIT RAST panel shows no significant food allergies. She is not doing well. she continues to have severe post prandial diarrhea and severe epigastric pain. The sucralfate did not help, but is not upsetting her stomach ir causing a/e. She was only taking 1 a day, so we ill increase the dose to 2-3 a day. If this does not work will progress. Repeat GI panel, stool sharlene, and panc elastase. Also CRP. Also will get EGD/colonoscopy. Her maternal grandmother had colon polyps and TICS. No anesthesia or sedation problems. She denies any cardiac or respiratory problems. No ID problems. ROV 6 weeks. [facility] Medical History Pilonidal cyst Depression Anemia Surgical History History of back surgery Family History Maternal Grandmother Colon cancer Maternal Uncle Colon cancer Mother History of hysterectomy Hidradenitis suppurativa Social History Household Members: Family Housing: House Are you a primary child care center administrator to a significant other at home: No Do you presently have visiting nurse or other home services: No Alcohol intake: current Alcohol intake frequency: holidays/special occasions only Patient Tobacco Use Status: Never used Tobacco service: No Current occupational status: employed Review of Systems Const Denies fatigue, Denies fever(s), Denies night sweats, Denies poor appetite and Denies weight loss ENT Reports Normal hearing present, Denies dental pain, Denies dysphagia, Denies hearing loss, Denies mouth pain, Denies odynophagia, Denies throat swelling, Denies tongue swelling and Reports other (Dentition adequate) Card Reports no additional complaints Resp Reports no additional complaints GI Details: Reports abdominal pain, Denies melena, Denies bloating, Denies hematochezia, Denies constipation, Denies GI cramping, Denies dysphagia, Denies excessive flatus, Denies early satiety, Reports heartburn, Reports diarrhea, Denies nausea, Denies odynophagia, Denies vomiting and Denies hematemesis Skin/Breast Denies pruritus, Denies lesions, Denies rash and Denies jaundice Neuro Reports Normal hearing present and Denies Abnormal speech present Endo Denies fatigue Aller/Immun Denies throat swelling and Denies tongue swelling Physical Exam Vital Signs: Last Vital Signs Pulse 69 06/13/24 12:57 BP 147/67 H 06/13/24 12:57 BMI result Body Mass Index 35.0 Const General: cooperative, no acute distress, well developed and well groomed Nutritional Appearance: well nourished and obese Orientation/consciousness: oriented to person, oriented to place and oriented to time Limitations: No language barrier HEENT Head: Yes normocephalic and Yes atraumatic Eyes General: appearance normal, both eyes and all related structures Pupils: Equal, round and reactive pupils present Neck Neck: Yes normal visual inspection and Yes no lymphadenopathy Thyroid: Thyroid normal Resp Effort & Inspection: normal respiratory effort and able to speak in complete sentences Auscultation: clear to auscultation bilaterally Cardio Rate: regular rate Rhythm: regular rhythm Heart sounds: Normal, physiologic split S2 sound present Peripheral pulses: radial pulses present and posterior tibial pulses present GI Inspection: No distended and No Abdominal panniculus present Palpation (GI): Soft to palpation, nontender, no guarding, not rigid, No hepatosplenomegaly present and Hepatosplenomegaly present Percussion: Yes normal to percussion Auscultation: normal bowel sounds Rectal Exam - Female: deferred Skin General skin exam: no rashes or lesions noted, turgor normal, skin not dry, no jaundice, No spider nevi and no striae Rashes: no rashes Nails: normal Neuro General: oriented to person, oriented to place and oriented to time Cranial nerves: Yes Equal, round and reactive pupils present and Yes Normal hearing present Speech: No Abnormal speech present Extrem General: Yes normal to inspection, No clubbing, No cyanosis and No edema Psych Thought process: Normal thought process present and not confabulating Thought content: Normal thought content present Insight: Good insight present (Psych) Judgement: Good judgement present (Psych) Results Reviewed Results Reviewed: Laboratory Tests 05/29/24 13:55 WBC 6.6 Hgb 12.0 D Hct 35.3 L MCV 89.4 MCH 30.4 Plt Count 269 Estimated GFR > 60 Total Bilirubin 0.4 AST 18 ALT 17 Alkaline Phosphatase 38 L Assessment & Plan Assessment & Plan (1) E coli enteritis: Code(s): A04.4 - Other intestinal Escherichia coli infections Category: Medical (2) GERD (gastroesophageal reflux disease): Code(s): K21.9 - Gastro-esophageal reflux disease without esophagitis Category: Medical (3) Epigastric pain: Code(s): R10.13 - Epigastric pain Category: Medical (4) Acute diarrhea: Code(s): R19.7 - Diarrhea, unspecified Category: Medical (5) Pre-op examination: Code(s): Z01.818 - Encounter for other preprocedural examination Category: Medical Plan RAST panel shows no significant food allergies. She is not doing well. she continues to have severe post prandial diarrhea and severe epigastric pain. The sucralfate did not help, but is not upsetting her stomach ir causing a/e. She was only taking 1 a day, so we ill increase the dose to 2-3 a day. If this does not work will progress. Repeat GI panel, stool sharlene, and panc elastase. Also CRP. Also will get EGD/colonoscopy. Her maternal grandmother had colon polyps and TICS. No anesthesia or sedation problems. She denies any cardiac or respiratory problems. No ID problems. ROV 6 weeks Orders: Orders Calprotectin, Fecal Today A04.4 - Other intestinal Escherichia coli infections, K21.9 - Gastro-esophageal reflux disease without esophagitis, R10.13 - Epigastric pain, R19.7 - Diarrhea, unspecified GI Panel Today A04.4 - Other intestinal Escherichia coli infections, K21.9 - Gastro-esophageal reflux disease without esophagitis, R10.13 - Epigastric pain, R19.7 - Diarrhea, unspecified C Reactive Protein Today A04.4 - Other intestinal Escherichia coli infections, K21.9 - Gastro-esophageal reflux disease without esophagitis, R10.13 - Epigastric pain, R19.7 - Diarrhea, unspecified EGD/Alexander Combo - GI Use Only Today A04.4 - Other intestinal Escherichia coli infections, K21.9 - Gastro-esophageal reflux disease without esophagitis, R10.13 - Epigastric pain, R19.7 - Diarrhea, unspecified Pancreatic Elastase-1 Today R10.13 - Epigastric pain, R19.7 - Diarrhea, unspecified Medications: Changed From sucralfate (Carafate) 1 g PO DAILY 30 tabs 3RF K21.9 - Gastro-esophageal reflux disease without esophagitis, R10.13 - Epigastric pain To sucralfate (Carafate) 3 grams (3 x 1 gram) PO DAILY 30 tabs 6RF K21.9 - Gastro-esophageal reflux disease without esophagitis, R10.13 - Epigastric pain Coding Level of Care Code Est Pt Level 4 (96938) Diagnoses E coli enteritis A04.4 GERD (gastroesophageal reflux disease) K21.9 Epigastric pain R10.13 Acute diarrhea R19.7 Pre-op examination Z01.818 Time Spent (min) 36
[2024-06-13 12:57] VITALS: BP 147/67; PULSE 69; BMI 35.0
--- OUTSIDE RECORDS SUMMARY | 2024-06-13 15:03 | XMS_ITS | Continuity of Care Document ---
Author Organization [place] - [facility], [facility] Address [address] [place] [address] Assessment No assessment recorded. Plan of Treatment Reminders Order Date Submit Date Provider Last Modified By Organization Details Last Modified Time Details Appointments None record ed. Lab None record ed. Referral None record ed. Procedures None record ed. Surgeries None record ed. Imaging None record ed. Medication Orders None record ed. Patient TargetsNo targets recorded. Patient InstructionsNo instructions recorded. Reason for Referral None Reported. Problems Name Problem SNOMED Code Status Onset Date Resolution Date Notes Provider Name and Address Organization Details Recorded Time Recurrent acute tonsillitis 450801095 Active 2024 MAIK OROZCO MD [address], [address] [place] - [facility] 5 11:21:26 Problem Notes None recorded. Medical Equipment None Reported. Medications Name Sig Start Date Stop Date Status Note LastModified by Organization Details LastModified Time cetirizine 10 mg tablet TAKE 1 TABLET BY MOUTH AT BEDTIME NEEDED active Not Available Not Available No t Available ibuprofen 800 mg tablet active Not Available Not Available Not Available sucralfate 1 gram tablet TAKE 1 TABLET BY MOUTH DAILY active Not Available Not Available Not Available penicillin V potassium 500 mg tablet TAKE 1 TABLET BY MOUTH TWICE DAILY active Not Available Not Available No t Available acetaminophe n 500 mg tablet TAKE 1-2 TABLET BY MOUTH EVERY 8 HOURS active Not Available Not Available No t Available triamcinolon e acetonide 0.025 % topical cream APPLY TOPICALLY TWICE DAILY. USE FOR UP TO 1-2 WEEKS active Not Available Not Available No t Available ferrous sulfate 325 mg (65 mg iron) tablet 5 mg as needed by oral route. active Not Available Not Available Not Available sertraline 25 mg tablet 25 mg every 24 hours by oral route. active Not Available Not Available Not Available levofloxacin 500 mg tablet TAKE 1 TABLET BY MOUTH DAILY active Not Available Not Available Not Available sertraline 50 mg tablet TAKE 1 TABLET BY MOUTH DAILY active Not Available Not Available Not Available rizatriptan 5 mg tablet active Not Available Not Available Not Available Ventolin HFA 90 mcg/actuatio n aerosol inhaler INHALE 2 PUFFS BY MOUTH EVERY 4 HOURS NEEDED FOR WHEEZING active Not Available Not Available No t Available clindamycin 1 % lotion APPLY EXTERNALLY TO THE AFFECTED AREA TO THE UPPER THIGH EVERY DAY active Not Available Not Available No t Available azithromycin 500 mg tablet TAKE 1 TABLET DAILY FOR 7 DAYS active Not Available Not Available No t Available azelaic acid 15 % topical gel APPLY TOPICALLY TO FACE EVERY NIGHT AT BEDTIME active Not Available Not Available N ot Available cholecalcife rol (vitamin D3) 25 mcg (1,000 unit) tablet TAKE 1 TABLET BY MOUTH EVERY DAY active Not Available Not Available No t Available ferrous gluconate 324 mg (38 mg iron) tablet active Not Available Not Available Not Available Vitamin D3 50 mcg (2,000 unit) capsule 1 capsule every 24 hours by oral route. active Not Available Not Available Not Available Humira(CF) Pen 80 mg/0.8 mL subcutaneous kit 2 dose pks every 2 weeks by sub-q route. active Not Available Not Available No t Available Slynd 4 mg (28) tablet 4 mg every 24 hours by oral route. 2023 active Not Available Not Available Not Avai lable Vitals Date Recorded Body height Body mass index (BMI) Body weight Provider Name and Address Organization Details Last Updated DateTime 06/05/2024 180.34 cm 30.7 kg/m2 53595.32 g Alfred Noonan [facility] 06/05/2024 11:07:42 Social History None recorded. Functional Status None recorded. Mental Status None recorded. Family History Relationship Description Onset Age of this Age Resolved Age Notes LastModified by Organization Details LastModified Time Maternal Aunt Migraine jschreibstein N ot available 06/05/2024 11:13:16 Maternal Grandmother Migraine jschreibstein Not available 06/05/2024 11:13:16 Medical History Condition Response Allergies/Hayfever N Heart Problems N Anxiety Y Tonsil Infections N Emphysema N Migraines Y Thyroid Problems N Depression Y COPD N Developmental Delay N Glaucoma N Nasal or Sinus Problems N Anemia Y Immune System Disorder N Anesthesia Complications N Heart Attack (ND) N Other Skin Condition Y Diabetes N Rhinitis N Bleeding Disorder N Food Allergy N Hearing Loss N Arthritis N Hyperlipidemia N Cancer N Stroke N Dementia N Nasal polyps N Asthma N Sleep Disorder N High Cholesterol N GERD/Reflux N Liver Disease N Headaches Y Fibromyalgia N Hypertension N Speech Delay N Kidney Disease N Gynecological HistoryNo gynecological history recorded. Obstetrics History GPAL:G 0 P 0 0 0 0 Past Encounters Encounter ID Performer Location Encounter Start Date Encounter Closed Date Diagnosis/Indication Diagnosis SNOMED-CT Code Diagnosis ICD10 Code Diagnosis Note [id number] MAIK SIM MD [facility] [address] [address] 06/05/2024 10:49:56 06/05/2024 11:23:18 Recurrent acute tonsillitis 101066529 J03.91 Patient reports 2-3 episodes of tonsilliti s per year. Last episode was 5 months ago. Episodes are usually streptococ sharlene in nature. Fortunatel y we discussed that this usually ramos itself out. We could consider some streptococ sharlene probiotics , but she would need to take them every day and these episodes are intermitte nt. I would suggest just avoiding any alcohol containing mouthwash and consider Biotene mouthwash to prevent any formation of tonsil stones Health Concerns Section Related Observation LastModified by Organization Detai ls LastModified Time None Recorded Concern Status LastModified by Organization Details LastModified Time None Recorded Payers Encounter Date Sequence Insurance Name Policy Number Policy Stone Covered Member ID Stone Member ID Guarantor Name 06/05/2024 1 [place] [id number] Estrellatristan Hooks Notes Date Note Type Note Provider Name and Address Organization Details Recorded Time 06/05/2024 text/html Had illness last December with tonsil swelling and stones. Had some ear aches. 2-3 episodes per year and in between she is fineNo issues for 5 months MAIK MCKEON MD [address] [place] [address], [id number], [place] - [facility] 06/05/2024 11:22:27 OBGyn Episode No OBEpisode recorded.
--- OUTSIDE RECORDS SUMMARY | 2024-06-13 15:03 | XMS_ITS | Data Portability ---
Author Organization [place] [facility], Allergy Address [address] [place] [phone] Assessment No assessment recorded. Plan of Treatment [...] Organization Details Recorded Time Recurrent acute tonsillitis 565904708 Active 2024 MAIK OROZCO MD [address] [address], [place], [address] [place] [facility] 5 11:21:26 Problem Notes None recorded. [...] Updated DateTime 06/05/2024 180.34 cm 30.7 kg/m2 89506.32 g Alfred Noonan [facility] 06/05/2024 11:07:42 Social History None recorded. [...] Emphysema N Migraines Y Thyroid Problems N Glaucoma N Depression Y COPD N Developmental Delay N Nasal or Sinus Problems N Anemia Y Immune System Disorder N Anesthesia Complications N Heart Attack (NE) N Other Skin Condition Y Diabetes N Rhinitis N Bleeding Disorder N Food Allergy N Arthritis N Hearing Loss N Hyperlipidemia N Cancer N Stroke N Dementia N Nasal polyps N Asthma N Sleep Disorder N GERD/Reflux N High Cholesterol N Liver Disease N Headaches Y Fibromyalgia N Hypertension N Speech Delay N Kidney Disease N Gynecological HistoryNo gynecological history recorded. Obstetrics History GPAL:G 0 P 0 0 0 0 Past Encounters Encounter ID Performer Location Encounter Start Date Encounter Closed Date Diagnosis/Indication Diagnosis SNOMED-CT Code Diagnosis ICD10 Code Diagnosis Note [id number] MAIK SIM MD [facility] [address] [address] 06/05/2024 10:49:56 06/05/2024 11:23:18 Recurrent acute tonsillitis [id number] J03.91 Patient reports 2-3 episodes of tonsilliti [...] by Organization Details LastModified Time None Recorded Advance Directives Directive None Recorded Payers Encounter Date Sequence Insurance Name Policy Number Policy Stone Covered Member ID Stone Member ID Guarantor Name 06/05/2024 1 [place] [id number] [facility] Notes Date Note Type Note Provider Name and Address Organization Details Recorded Time 06/05/2024 text/html Had illness last December with tonsil swelling and stones. Had some ear aches. 2-3 episodes per year and in between she is fineNo issues for 5 months MAIK MCKEON MD [address] [place] [address], [id number], [place] [facility] 06/05/2024 11:22:27 OBGyn Episode No OBEpisode recorded.
== END 2024-06-13 15:06 | disposition home or self-care (01) ==
PROVIDERS: PCP Registered Nurse; Visit Provider Nurse Practitioner
DX: R19.7 Diarrhea, unspecified (principal); K21.9 Gastro-esophageal reflux disease without esophagitis; A04.4 Other intestinal Escherichia coli infections
CPT/HCPCS: 99214

== ENCOUNTER 2024-06-13 12:51 | Outpatient (REF) | payer MEDICAID, SELFPAY ==
[2024-06-13 16:44] LABS: C Reactive Protein < 0.04 mg/dL (< or = 0.50)
== END 2024-06-13 12:52 | disposition home or self-care (01) ==
LOC: HO.LAB 12:51
PROVIDERS: PCP Registered Nurse; Visit Provider Nurse Practitioner
DX: Z01.818 Encounter for other preprocedural examination (principal); A04.4 Other intestinal Escherichia coli infections; R19.7 Diarrhea, unspecified; K21.9 Gastro-esophageal reflux disease without esophagitis; R10.13 Epigastric pain
CPT/HCPCS: 36415; 86140; 99212

== ENCOUNTER 2024-06-27 15:14 | Outpatient (REF) | payer MEDICAID, SELFPAY ==
--- OUTSIDE RECORDS SUMMARY | 2024-06-27 16:10 | XMS_ITS | Data Portability ---
Author Organization [place] [facility], Allergy Address [address] [place] [phone] Assessment No assessment recorded. Plan of Treatment [...] Organization Details Recorded Time Recurrent acute tonsillitis [id number] Active 2024 MAIK OROZCO MD [address] [address], [place], [address] [facility] [place] [facility] 5 11:21:26 Problem Notes None recorded. [...] Updated DateTime 06/05/2024 180.34 cm 30.7 kg/m2 42362.32 g Alfred Noonan [facility] 06/05/2024 11:07:42 Social History None recorded. [...] Disorder N Anesthesia Complications N Heart Attack (CT) N Other Skin Condition Y Diabetes N Rhinitis N Bleeding Disorder N Food Allergy N Arthritis N Hearing Loss N Hyperlipidemia N Cancer N Stroke N Dementia N Nasal polyps N Asthma N High Cholesterol N Sleep Disorder N GERD/Reflux N Liver Disease N Headaches Y Fibromyalgia N Hypertension N Speech Delay N Kidney Disease N Gynecological HistoryNo gynecological history recorded. Obstetrics History GPAL:G 0 P 0 0 0 0 Past Encounters Encounter ID Performer Location Encounter Start Date Encounter Closed Date Diagnosis/Indication Diagnosis SNOMED-CT Code Diagnosis ICD10 Code Diagnosis Note [id number] MAIK SIM MD [facility] [address] [address] 06/05/2024 10:49:56 06/05/2024 11:23:18 Recurrent acute tonsillitis [id number] J03.91 Patient reports 2-3 episodes of tonsilliti [...] Stone Member ID Guarantor Name 06/05/2024 1 [place]: [facility] [id number] [facility] Notes Date Note Type Note Provider Name and Address Organization Details Recorded Time 06/05/2024 text/html Had illness last December with tonsil swelling and stones. Had some ear aches. 2-3 episodes per year and in between she is fineNo issues for 5 months MAIK MCKEON MD [address] [place] [address], [phone], [place] [facility] 06/05/2024 11:22:27 OBGyn Episode No OBEpisode recorded.
--- OUTSIDE RECORDS SUMMARY | 2024-06-27 16:10 | XMS_ITS | Encounter Summary ---
Author Organization [facility] Address [address] [place] [address] Phone Care Team Providers Care Transcription Manager Name Role Phone Elly Mayes MD Primary Care Provider [phone] Encounter Details Date Type Department Care Team (Late st Contact Info) Description 11/20/2009 Documentation [facility] [place] [address] [place], [place] [phone] Family Medicine, Physician [address] [place] [address] Social History Tobacco Use Types Packs/Day Years Used Date Smoking Tobacco: Never Assessed Comments Unknown Sex and Gender Information Value Date Recorded Sex Assigned at Not on file Legal Sex Female 5:06 PM EDT Gender Identity Not on file Sexual Orientation Not on file documented as of this encounter Plan of Treatment Not on file documented as of this encounter Visit Diagnoses Not on filedocumented in this encounter Care Teams Transcription Manager Relationship Specialty Start Date End Date Elly Mayes MD [address] [place] [address] [place] [address] PCP - General 01/08/17 09/09/22 documented as of this encounter
--- OUTSIDE RECORDS SUMMARY | 2024-06-27 16:11 | XMS_ITS | Encounter Summary ---
Author Organization [facility] Address [address] [place] [address] Phone Care Team Providers Care Job Estimator Name Role Phone Elly Mayes MD Primary Care Provider Encounter Details Date Type Department Care Team (Late st Contact Info) Description 11/17/2012 Documentation [facility] Family Medicine [address] [place], [place] [phone] Family Medicine, Physician [address] [place] [address] Social History Tobacco Use Types Packs/Day Years [...] on filedocumented in this encounter Care Teams Job Estimator Relationship Specialty Start Date End Date Elly Mayes MD [address] [place] [address] [place] [address] PCP - General 01/08/17 09/09/22 documented as of this encounter
--- OUTSIDE RECORDS SUMMARY | 2024-06-27 16:11 | XMS_ITS | Encounter Summary ---
Author Organization [facility] Address [address] [place] [address] Phone Care Team Providers Care Spine Nurse Name Role Phone Elly Mayes MD Primary Care Provider [phone] Encounter Details Date Type Department Care Team (Late st Contact Info) Description 06/06/2012 Documentation [facility] [place] Family Medicine [address] [place], [place] [id number] Family Medicine, Physician [address] [place] [address] Social History Tobacco Use Types Packs/Day Years [...] on filedocumented in this encounter Care Teams Spine Nurse Relationship Specialty Start Date End Date Elly Mayes MD [address] [place] [address] [place] [address] PCP - General 01/08/17 09/09/22 documented as of this encounter
--- OUTSIDE RECORDS SUMMARY | 2024-06-27 16:11 | XMS_ITS | Encounter Summary ---
Author Organization [facility] Address [address] [place] [address] Phone Care Team Providers Care On Line Csr Name Role Phone Elly Mayes MD Primary Care Provider [phone] Encounter Details Date Type Department Care Team (Late st Contact Info) Description 07/03/2013 Documentation [facility] [place] Family Medicine [address] [place], [place] [phone] Family Medicine, Physician [address] [place] [address] Social History Tobacco Use Types Packs/Day Years [...] on filedocumented in this encounter Care Teams On Line Csr Relationship Specialty Start Date End Date Elly Mayes MD [address] [place] [address] [place] [address] PCP - General 01/08/17 09/09/22 documented as of this encounter
--- OUTSIDE RECORDS SUMMARY | 2024-06-27 16:11 | XMS_ITS | Clinical Summary ---
Author Organization [facility] Address [address] [id number] Care Team Providers Care Messenger Copy Name Role Phone Edith Wells Primary Care Provider [phone] Source Comments Please note that some or all of the patient's information could have additional privacy protections. State laws allow health care providers to render certain types of treatment to minors without parental consent. Please do not assume that this information can be shared solely by obtaining just the consent of the patient's parent/guardian. Please determine if all or part of the patient's care was rendered without parent/guardian involvement. And, if so, obtain the minor's consent prior to disclosure.[facility] Social History Tobacco Use Types Packs/Day Years Used Date Smoking Tobacco: Never Assessed Comments Unknown Sex and Gender Information Value Date Recorded Sex Assigned at Not on file Legal Sex Female 1:37 PM EDT Gender Identity Not on file Sexual Orientation Not on file Plan of Treatment Health Maintenance Due Date Last Done Comments DTaP/TDAP/TD VACCINES (1 - Tdap) 12/07/2007 ADOLESCENT HIV SCREENING 2013 COVID-19 Vaccine (2023-2 5 season) 2024 INFLUENZA (#1) 2024 NIRSEVIMAB VACCINES UNDER 8 MONTHS Aged Out No longer eligible based on patient's age to complete this topic Care Teams Messenger Copy Relationship Specialty Start Date End Date Edith Wells CPNP [address] [place] [address] PCP - General Nurse Practitioner 11/03/17
--- OUTSIDE RECORDS SUMMARY | 2024-06-27 16:11 | XMS_ITS | Encounter Summary ---
Author Organization [facility] Address [address] [place] [address] Phone Care Team Providers Care Aerospace Engineer Name Role Phone Elly Mayes MD Primary Care Provider [phone] Encounter Details Date Type Department Care Team (Late st Contact Info) Description 07/21/2012 Documentation [facility] [place] [address] [place], [place] [phone] Family Medicine, Physician [address] [place] [address] Social History Tobacco Use Types Packs/Day Years [...] on filedocumented in this encounter Care Teams Aerospace Engineer Relationship Specialty Start Date End Date Elly Mayes MD [address] [place] [address] [place] [address] PCP - General 01/08/17 09/09/22 documented as of this encounter
--- OUTSIDE RECORDS SUMMARY | 2024-06-27 16:11 | XMS_ITS | Encounter Summary ---
Author Organization [employer] Address [address] [place] [address] [address] [place] [address] Care Team Providers Care Rn Med Surg Name Role Phone Lynn Hinojosa Primary Care Provider [phone] [place] Unavailable Encounter Details Date Type Department Care Team (Late st Contact Info) Description 05/12/2022 Abstract [facility] [address] [place], [place] [phone] Provider, MD Robert Social History Tobacco Use Types Packs/Day Years Used Date Smoking Tobacco: Never Assessed Depression Answer Date Recorded Patient Health Questionnaire-2 Score 2 05/15/2022 Comments Unknown Sex and Gender Information Value Date Recorded Sex Assigned at Female 03/30/2022 10:24 AM EDT Legal Sex Female 10:24 AM EDT Gender Identity Female 03/30/2022 10:24 AM EDT Sexual Orientation Straight 03/30/2022 10 :24 AM EDT COVID-19 Exposure Response Date Recorded In the last 10 days, have yo u been in contact with someone who was confirmed or suspected to have Coronavirus/COVID-19? No / Unsure 05/15/2022 9:35 AM EST documented as of this encounter Plan of Treatment Not on file documented as of this encounter Visit Diagnoses Not on filedocumented in this encounter Care Teams Rn Med Surg Relationship Specialty Start Date End Date Lynn Hinojosa FNP [address] [place] [address] PCP - General Family Medicine 01/20/22 [place], [address] [place] [address] Gastroenterology 05/28/24 documented as of this encounter
--- OUTSIDE RECORDS SUMMARY | 2024-06-27 16:11 | XMS_ITS | Clinical Summary ---
Author Organization [facility] Address [address] [place] [address] Phone Care Team Providers Care Waste Collector Name Role Phone Unavailable Primary Care Provider Unavailabl e Immunizations Name Administration Dates Next Due DTaP 5 01/12/2005, 3,06/28/2001,04/28,02/09/2001 H1N1 07/26/2009 HPV Vaccine 9 Valent 02/11/2015 HPV, Quadrivalent 02/21/2013,01/11/2012 Hep A, ped/adol 09/12/2015,02/11/2015 Hep B, ped/adol 06/28/2001,01/05/2001,2000 Hib (PRP-T) 04/06/2002, 2,04/28/2001,02/09 IPV 01/12/2005, 2,04/28/2001,02/09 Influenza Split 02/21/2013,06/22/2012 Influenza, injectable, quadrivalent 03/31/2014 Influenza, injectable, quadr ivalent, preservative free 02/11/2015 Influenza, injectable, trivalent 02/07/2009 Influenza, intranasal, trivalent 01/08/2011 MMR 01/12/2005,12/30/2001 Meningococcal Conj (Menactra) MCV4P 01/11/2012 Pneumococcal Conjugate 12/15/2002,2001,04/28/2001,02/09 Tdap 01/11/2012 Unknown Vaccine 12/10/2003 Varicella 02/18/2007,12/30/2001 Family History Relation Name Status Comments Brother Brother: Asthma Father Father: heart p roblems Mother Alive Mother: Alive a nd well Other Family history of Hypertension, Family history of Dental caries, Family history of Cancer, colon, Family history of Diabetes mellitus, No family history of Sudden /OR under age 55, Family history of Cancer, liver, No family history of CVA (Stroke), No family history of Thrombophilia, Family history of ADD/ADHD, Family history of Elevated cholesterol, Family history of Autism Social History Tobacco Use Types Packs/Day Years Used Date Smoking Tobacco: Never Comments:Never smoker Comments Unknown Sex and Gender Information Value Date Recorded Sex Assigned at Not on file Legal Sex Female 5:06 PM EDT Gender Identity Not on file Sexual Orientation Not on file Last Filed Vital Signs Vital Sign Reading Time Taken Comments Blood Pressure 120/76 09/12/2015 12:00 AM EDT Pulse 88 07/25/2015 12:00 AM EST Temperature 36.8 ??C (98.3 ??F) 09/12/2015 12:00 AM E DT Respiratory Rate - - Oxygen Saturation 95% 05/09/2012 12:00 AM EST Inhaled Oxygen Concentration - - Weight 120 kg (265 lb 3.2 oz) 09/12/2015 12:00 A M EDT Height 180.3 cm (5' 11 ) 09/12/2015 12:00 AM EDT Body Mass Index 36.99 09/12/2015 12:00 AM EDT Plan of Treatment Health Maintenance Due Date Last Done Comments Men B Vaccine (1 of 2 - Standard) 2016 DTaP,Tdap,and Td Vaccines (7 - Td or Tdap) 01/10/2022 01/11/2012, 01/12/2005, 06/09/2002, Additional history exists Influenza Vaccines (#1) 2023 02/12/20 15, 03/31/2014, 02/21/2013, Additional history exists COVID-19 Vaccine ( season) 2024 Hepatitis B Vaccines Completed 06/28/2001, 01/05/2001, 2000 HIB Vaccines Completed 04/06/2002, 06/01, 04/28/2001, Additional history exists Pneumococcal Vaccine Completed 12/15/2002, 06/28/2001, 04/28/2001, Additional history exists IPV Vaccines Completed 01/12/2005, 11/2001, 04/28/2001, Additional history exists MMR Vaccines Completed 01/12/2005, 12/30/2001 Varicella Vaccines Completed 02/18/2007, 12/30/2001 Meningococcal Vaccine Aged Out 01/11/2012 No matthieu олег eligible based on patient's age to complete this topic HPV Vaccines Completed 02/11/2015, 01/30, 01/11/2012 Hepatitis A Vaccines Completed 09/12/2015, 02/12/20 15
--- OUTSIDE RECORDS SUMMARY | 2024-06-27 16:11 | XMS_ITS | Encounter Summary ---
Author Organization [facility] Address [address] [place] [address] Phone Care Team Providers Care Manager Orange Name Role Phone Elly Mayes MD Primary Care Provider [phone] Encounter Details Date Type Department Care Team (Late st Contact Info) Description 03/29/2012 Documentation [facility] Family Medicine [address] [place], [place] [phone] Family Medicine, Physician [address] [place] [address] Social History Tobacco Use Types Packs/Day Years [...] on filedocumented in this encounter Care Teams Manager Orange Relationship Specialty Start Date End Date Elly Mayes MD [address] [place] [address] [place] [address] PCP - General 01/08/17 09/09/22 documented as of this encounter
--- OUTSIDE RECORDS SUMMARY | 2024-06-27 16:11 | XMS_ITS | Clinical Summary ---
Author Organization [facility] Address [address] [place] [address] Care Team Providers Care Service Car Operator Name Role Phone Edith Wells Primary Care Provider [phone] Social History Tobacco Use Types Packs/Day Years Used Date Smoking Tobacco: Never Assessed Sex and Gender Information Value Date Recorded Sex Assigned at Not on file Gender Identity Not on file Sexual Orientation Not on file Plan of Treatment Health Maintenance Due Date Last Done Comments Hepatitis B Vaccines (1 of 3 - 3-dose series) 2000 Hepatitis C Screening 2000 COVID-19 Vaccine (#1) 06/08/2001 Depression Screening 2012 Gonorrhea and Chlamydia Screening 2013 Preventative Health Evaluation 2018 Cervical Cancer Screening (Pap Smear) 2021 DTap / Tdap / Td (7 - Td or Tdap) 01/10/2022 01/11/2012, 01/12/2005, 06/09/2002, Additional history exists Influenza Vaccine (#1) 2024 5, 03/31/2014, 01/08/2011, Additional history exists Pneumococcal Vaccine Completed 12/15/2002, 06/28/2001, 04/28/2001, Additional history exists RSV Ped < 20 months Aged Out No longe r eligible based on patient's age to complete this topic Care Teams Service Car Operator Relationship Specialty Start Date End Date Edith Wells [address] [facility] [place] [address] PCP - General Pediatrics 07/22/20
--- OUTSIDE RECORDS SUMMARY | 2024-06-27 16:11 | XMS_ITS | Referral Summary ---
Author Organization [facility] Address [address] [place] [address] Care Team Providers Care Ritual Circumciser Name Role Phone Edith Wells Primary Care Provider [phone] Source Comments Please note that some or [...] so, obtain the minor's consent prior to disclosure.[facility] Social History Tobacco Use Types Packs/Day Years Used Date Smoking Tobacco: Never Assessed Comments Unknown Sex and Gender Information Value Date Recorded Sex Assigned at Not on file Legal Sex Female 1:37 PM EDT Gender Identity Not on file Sexual Orientation Not on file Plan of Treatment Not on file Care Teams Ritual Circumciser Relationship Specialty Start Date End Date Edith Wells CPNP [address] [place] [address] PCP - General Nurse Practitioner 11/03/17
--- OUTSIDE RECORDS SUMMARY | 2024-06-27 16:11 | XMS_ITS | Encounter Summary ---
Author Organization [facility] Address [address] [place] [address] Phone Care Team Providers Care Component Design Engineer Name Role Phone Elly Mayes MD Primary Care Provider [phone] Encounter Details Date Type Department Care Team (Late st Contact Info) Description 04/08/2012 Documentation [facility] [place] Family Medicine [address] [place], [place] [phone] Family Medicine, Physician [address] [place] [address] Social History Tobacco Use Types Packs/Day Years [...] on filedocumented in this encounter Care Teams Component Design Engineer Relationship Specialty Start Date End Date Elly Mayes MD [address] [place] [address] [place] [address] PCP - General 01/08/17 09/09/22 documented as of this encounter
--- OUTSIDE RECORDS SUMMARY | 2024-06-27 16:11 | XMS_ITS | Encounter Summary ---
Author Organization [facility] Address [address] [place] [address] Phone Care Team Providers Care Electrical Calibrator Name Role Phone Elly Mayes MD Primary Care Provider [phone] Encounter Details Date Type Department Care Team (Late st Contact Info) Description 11/28/2012 Documentation [facility] [place] Family Medicine [address] [place], [place] [phone] Family Medicine, Physician [address] [place] [address] Social History Tobacco Use Types Packs/Day Years [...] on filedocumented in this encounter Care Teams Electrical Calibrator Relationship Specialty Start Date End Date Elly Mayes MD [address] [place] [address] [place] [address] PCP - General 01/08/17 09/09/22 documented as of this encounter
--- OUTSIDE RECORDS SUMMARY | 2024-06-27 16:11 | XMS_ITS | Continuity of Care Document ---
Author Organization [place] [facility], [facility] Address [address] [place] [address] Assessment No assessment recorded. Plan of Treatment [...] Organization Details Recorded Time Recurrent acute tonsillitis [id number] Active 2024 MAIK OROZCO MD [address], [address] [facility] 5 11:21:26 Problem Notes None recorded. [...] Updated DateTime 06/05/2024 180.34 cm 30.7 kg/m2 82445.32 g Alfred Noonan [facility] 06/05/2024 11:07:42 Social History None recorded. Functional Status None recorded. Mental Status None recorded. Family History Relationship Description Onset Age of this Age Resolved Age Notes LastModified by Organization Details LastModified Time Maternal Aunt Migraine jschreibstein N ot available 06/05/2024 11:13:16 Maternal Grandmother Migraine jschreibstein Not available 06/05/2024 11:13:16 Medical History Condition Response Tonsil Infections N Emphysema N Glaucoma N Depression Y COPD N Nasal or Sinus Problems N Anesthesia Complications N Arthritis N Hearing Loss N Cancer N Stroke N High Cholesterol N Liver Disease N Headaches Y Fibromyalgia N Speech Delay N Kidney Disease N Allergies/Hayfever N Heart Problems N Anxiety Y Migraines Y Thyroid Problems N Developmental Delay N Anemia Y Immune System Disorder N Heart Attack (RI) N Other Skin Condition Y Diabetes N Rhinitis N Bleeding Disorder N Food Allergy N Hyperlipidemia N Dementia N Nasal polyps N Asthma N Sleep Disorder N GERD/Reflux N Hypertension N Gynecological HistoryNo gynecological history recorded. Obstetrics History GPAL:G 0 P 0 0 0 0 Past Encounters Encounter ID Performer Location Encounter Start Date Encounter Closed Date Diagnosis/Indication Diagnosis SNOMED-CT Code Diagnosis ICD10 Code Diagnosis Note [id number] MAIK SIM MD [facility] [address] [address] 06/05/2024 10:49:56 06/05/2024 11:23:18 Recurrent acute tonsillitis [id number] J03.91 Patient reports 2-3 episodes of tonsilliti [...] Stone Member ID Guarantor Name 06/05/2024 1 [place] [id number] Estrellatristan [facility]s Notes Date Note Type Note Provider Name and Address Organization Details Recorded Time 06/05/2024 text/html Had illness last December with tonsil swelling and stones. Had some ear aches. 2-3 episodes per year and in between she is fineNo issues for 5 months MAIK MCKEON MD [address] [place] [address], [phone], [place] [facility] 06/05/2024 11:22:27 OBGyn Episode No OBEpisode recorded.
--- OUTSIDE RECORDS SUMMARY | 2024-06-27 16:11 | XMS_ITS | Encounter Summary ---
Author Organization [employer] Address [address] [facility] [address] [place] [address] Care Team Providers Care Software Test Analyst Name Role Phone Lynn Hinojosa Primary Care Provider [phone] August Encounter Details Date Type Department Care Team (Late st Contact Info) Description 05/30/2024 Telephone [facility] MED & PEDS [address] [place], [place] [phone] Lynn Hinojosa FNP [address] [place], [place] [phone] Social History Tobacco Use Types Packs/Day Years Used Date Smoking Tobacco: Never Passive Smoke Exposure: Never Smokeless Tobacco: Never Alcohol Use Standard Drinks/Week Comments Yes 0 (1 standard drink = 0.6 oz pur e alcohol) social use Alcohol Answer Date Recorded Frequency of Alcohol Consumption Not on file 07/09/2023 Average Number of Drinks Not on file 024 Frequency of Binge Drinking Not on file 01/2024 Score 0 07/09/2023 Depression Answer Date Recorded Patient Health Questionnaire-9 Score 5 07/09/2023 Patient Health Questionnaire-9 Score 5 07/09/2023 Last PHQ-9: Questionnaire Data Not on file 0 07/09/2023 Housing Stability Answer Date Recorded What is your housing situation today? I have dalton ansari 03/17/[address] you li ve. Do you have problems with any of the following? None of the above 03/17/2023 Food Insecurity Answer Date Recorded Within the past 12 months, y ou worried that your food would run out before you got money to buy more: Never True 03/17/2023 Within the past 12 months,th e food you bought just didn't last and you didn't have enough money to get more: Never True Transportation Answer Date Recorded In the past 12 months, has l ack of transportation kept you from medical appts, meetings, work or from getting things needed for daily living? No 03/17/2023 Utilities Answer Date Recorded In the past 12 months, has t he electric, gas, oil or water company threatened to shut off services in your home? No 03/17/2023 Depression Answer Date Recorded Patient Health Questionnaire-2 Score 2 07/09/2023 Comments No Sex and Gender Information Value Date Recorded Sex Assigned at Female 03/30/2022 10:24 AM EDT Legal Sex Female 10:24 AM EDT Gender Identity Female 03/30/2022 10:24 AM EDT Sexual Orientation Straight 03/30/2022 10 :24 AM EDT documented as of this encounter Miscellaneous Notes * Telephone Encounter - Екатерина Doran RN - 06/01/2024 12:30 PM EST TC to patient. Explained Absolute Eosinophil Count (AEC) to patient, and discussed lab work results. All questions answered. * Telephone Encounter - SERINA Albarran - 06/01/2024 11:55 AM EST Please call to let her know that eosinophils are a type of white blood cell that play a flor role inthe immune system. There are multiple numbers related to eosinophils that come back in the blood work, and I know some of her levels look red, but the one that we calculate to let us know if they are above normal is called the the Absolute Eosinophil Count (AEC). This value is considered normal if less than 500/microL. When calculating this level from the lab result, her level is 449 cells/microL, which is within thenormal limit. I am adding a link if she would like to see the calculation for herself: [email or web address] Also, please let her know that the testing for tuberculosis came back negative. Thank you! * Telephone Encounter - Froylan Ashley RN - 05/30/2024 9:39 AM EST Call placed to patient to inform of message below from PCP. Spoke with patient and inform of message below regarding results and plan. Patient also was able to review her lab results and is concernedin regards to her eosinophils results. RN informed patient that those results have improved from 2 years ago from 11.3 to 6.8. Patient denies feeling sick. Advised that concerned will be sent to PCP. Patient verbalized understanding and agreed to plan. * Telephone Encounter - Froylan Ashley RN - 05/30/2024 9:39 AM EST ----- Message from Lynn Hinojosa sent at 05/30/2024 8:25 AM EST ----- Please call to review labs: overall iron deficiency anemia looks much improved. Hemoglobin improvedfrom 9.4 to 12, iron levels normalized. I would recommend that she continue with the Vitamin D supplement. We will let her know when the results of the Tuberculosis testing is in. Thank you! documented in this encounter Plan of Treatment Not on file documented as of this encounter Visit Diagnoses Not on filedocumented in this encounter Additional Health Concerns Assessment Noted Time PHQ-9 Depression Total Score: 5 07/09/19 24 9:39 AM EST documented as of this encounter Care Teams Software Test Analyst Relationship Specialty Start Date End Date Lynn Hinojosa FNP [address] [place] [id number] PCP - General Family Medicine 01/20/22 Tadeo, August [address] [place] [address] Drive [address] [place] [address] Gastroenterology 05/28/24 documented as of this encounter
--- OUTSIDE RECORDS SUMMARY | 2024-06-27 16:11 | XMS_ITS | Encounter Summary ---
Author Organization [employer] Address [address] [place] [address] [address] [place] [address] Care Team Providers Care Nicu Rn Name Role Phone Lynn Hinojosa Primary Care Provider [phone] August Unavailable Encounter Details Date Type Department Care Team (Late st Contact Info) Description 05/14/2022 Orders Only [facility] MED[facility] [address] [place] [address] Sofiya Garcia RN Social History Tobacco Use Types Packs/Day Years [...] on filedocumented in this encounter Care Teams Nicu Rn Relationship Specialty Start Date End Date Lynn Hinojosa FNP [address] [place] [address] PCP - General Family Medicine 01/20/22 Tadeo August [address] [place] [address] Drive [address] [place] [address] Gastroenterology 05/28/24 documented as of this encounter
--- OUTSIDE RECORDS SUMMARY | 2024-06-27 16:11 | XMS_ITS | Encounter Summary ---
Author Organization [employer] Address [address] [facility] [address] [place] [address] Care Team Providers Care System Administration Manager Name Role Phone Lynn Hinojosa Primary Care Provider [phone] August Reason for Visit * Reason Comments Med Refill Encounter Details Date Type Department Care Team ([facility] st Contact Info) Description 09/23/2023 Refill [facility]S [address] [place], [place] [phone] Lynn Hinojosa FNP [address] [place] [address] Social History Tobacco Use Types Packs/Day Years [...] AM EDT documented as of this encounter Plan of Treatment Not on file documented as of this encounter Visit Diagnoses Not on filedocumented in this encounter Additional Health Concerns Assessment Noted Time PHQ-9 Depression Total Score: 5 07/09/19 24 9:39 AM EST documented as of this encounter Care Teams System Administration Manager Relationship Specialty Start Date End Date Lynn Hinojosa FNP [address] [place] [id number] PCP - General Family Medicine 01/20/22August [address] [place] [address] Drive [address] [place] [address] Gastroenterology 05/28/24 documented as of this encounter
--- OUTSIDE RECORDS SUMMARY | 2024-06-27 16:11 | XMS_ITS | Clinical Summary ---
Author Organization [employer] Address [address] [facility] [address] [place] [address] Care Team Providers Care Cotton Stomper Name Role Phone Lynn Hinojosa RATTAN WORKER Primary Care Provider [phone] August Unavailable Allergies No known active allergies Medications * This document contains information received from the source organization and may not represent a complete record from that organization. hydrocortisone 2.5 % cream APPLY TOPICALLY TO THE CHEST TWICE DAILY NEEDED FOR FLARES 2 Active Humira Pen 80 MG/0.8ML Pen-injector Kit pen-injector INJECT 1 PEN SUBCUTANEOUS EVERY 14 DAYS 2 Active cetirizine (ZyrTEC) 10 MG tabletIndicatio ns:Nasal turbinate hypertrophy Take 1 tablet (10 mg) by mouth if needed at bedtime for allergies. 90 tablet 2 3 Active albuterol 108 (90 Base) MCG/ACT inhaler Inhale 2 puffs every 4 (four) hours if needed for wheezing. 18 g 3 3 Active sertraline (Zoloft) 50 MG tablet Take 50 mg by mouth in the morning. 4 Active Acetaminophen 500 MG capsule Take 1-2 capsules (500-1,000 mg) by mouth every 8 (eight) hours. 100 capsule 2 4 Active ferrous gluconate (Fergon) 324 (38 Fe) MG tabletIndicatio ns:Iron deficiency anemia, unspecified iron deficiency anemia type Take 1 pill every Wednesday, Wednesday, and Wednesday. Take with a full glass of water or Vit C containing juice, and ideally 1 hour before a meal or 2 hours after a meal 36 tablet 4 Active triamcinolone (Kenalog) 0.025 % creamIndication s:Dermatitis Apply topically 2 times daily. Use for up to 1-2 weeks. 15 g 2 4 Active cholecalciferol (Vitamin D-3) 50 MCG (1999) capsule Take 1 capsule (50 mcg) by mouth Once per day. 90 capsule 3 4 Active Drospirenone (Slynd) 4 MG tabletIndicatio ns:Iron deficiency anemia, unspecified iron deficiency anemia type Take 1 tablet by mouth Once per day. 90 tablet 3 4 Active rizatriptan (Maxalt) 5 MG tabletIndicatio ns:Migraine without aura and without status migrainosus, not intractable Take 1 tablet (5 mg) by mouth 1 (one) time if needed for migraine. May repeat in 2 hours if unresolved. Do not exceed 20 mg in 24 hours. 9 tablet 2 4 Active Active Problems Problem Noted Date Diagnosed Date Menorrhagia with regular cycle 04/09/2024 Overview (04/09/2024): Pelvic US May 2022: endometrial stripe is upper normal in thickness and shows some irregularity, without mass noted. Nabothian cysts seen within the cervix. Small amount of nonspecific free fluid within the endocervical canal and adjacent to the right ovary. Pelvic US August 2022: endometrial stripe is now WNL. Multiple benign, simple bilateral ovarian follicles and cysts are noted, for which no imaging follow up is recommended. Nabothian cysts seen on the cervix. SPIRITUAL ADVISOR consult July 2022 at [facility] Hx of migraine +/- aura. Recommended progesterone based method. Plan to start POP, reviewed med use and SE Assessment & Plan (05/28/2024 5:37 PM EST): - Improved with POP, continue current tx Assessment & Plan (04/09/2024 6:47 PM EST): Denies possibility of Reviewed back up method in the next 7 days if sexually active Iron deficiency anemia 10/23/2023 Overview (05/28/2024): Lab Results Component Value Date HGB 9.4 (L) 11/22/2023 HGB 10.3 (L) 10/11/2023 HGB 10.9 (L) 07/09/2023 HGB 12.6 05/13/2022 Following with [facility] Assessment & Plan (05/28/2024 5:38 PM EST): -Noted on labs September 2023, initiated on iron supplement -Labs in October 2023 demonstrated improvement in ferritin, but decrease in H/H -Consider 2/2 HMB -Established with [facility]e/[facility] Per last consult note November 2023, plan to cont with iron supplementation and follow up around May 2024. Assessment & Plan (04/09/2024 6:26 PM EST): -Noted on labs September 2023, initiated on iron supplement -Labs in October 2023 demonstrated improvement in ferritin, but decrease in H/H -Consider 2/2 HMB -Established with [facility] Per last consult note November 2023, plan to cont with iron supplementation and follow up around May 2024. Assessment & Plan (12/20/2023 9:02 PM EDT): -Noted on labs September 2023, initiated on iron supplement -Labs in October 2023 demonstrated improvement in ferritin, but decrease in H/H -Consider 2/2 HMB -Given decline in H/H despite iron and Vit D repletion, referral to Heme/Onc placed for further eval Assessment & Plan (10/23/2023 7:19 AM EDT): -Noted on labs September 2023, initiated on iron supplement -Plan to recheck labs 4 weeks after initiating supplementation Lymphadenopathy of right cervical region 024 Assessment & Plan (11/24/2023 6:14 PM EDT): -Identified during ED visit at [facility] 10/04/23 -US completed September 2023 with impression of 1.2cm complex lesion in area of concern. -Pt has been tx with abx w/o improvement -Referral to ENT for further eval and tx Assessment & Plan (10/11/2023 11:26 AM EDT): Ordering US of Head Neck soft tissue. Ordering lab work for further investigation. Recurrent major depressive disorder, in remissio n 10/06/2022 Assessment & Plan (07/11/2023 4:08 PM EST): ?? Follow up with therapist Q1-2weeks ?? Psychiatrist - Continues with sertraline 50mg daily ?? Denies SI/HI/thoughts of self harm Patient Health Questionnaire-9 Score: 5 Assessment & Plan (10/06/2022 1:38 PM EDT): ?? Follow up with therapist and psychiatrist during upcoming appt ?? Denies SI/HI/thoughts of self harm ?? Behavioral Health consult completed today after appt Routine health maintenance 05/18/2022 Overview (10/23/2023): -Last PE: 07/09/23 -STI: asymptomatic screening Jul 2023 -Dental: established with dental home -Pap: 05/15/22 NIL (annual while on Humira) -Colorectal CA screening: history of colon CA in family members in 30s, pt established with GI Assessment & Plan (09/08/2022 9:40 PM EDT): -Hep B titer non-immune Apr 2022 -Has completed 2 doses of repeat 3 dose series -Plan to repeat titers in September 2022 to determine if immunity present Assessment & Plan (05/18/2022 6:28 AM EST): -PHQ9 score: negative screening 11/12/21 -STI: no hx of sexual activity -Contraception: not currently sexually active, encourage contacting clinic with any questions or concerns -Pap: completed 05/15/22 -Smoking status: never smoker -Colorectal CA screening: history of colon CA in family members in 30s, pt established with GI Macromastia 05/15/2022 Assessment & Plan (09/08/2022 9:38 PM EDT): -Completed PT sessions w/o noted resolution of back pain -Referral to plastic surgery for consideration of Breast reduction 09/08/22 Assessment & Plan (05/15/2022 10:00 AM EST): -History of upper back pain, previously referred to physical therapy -Consideration/interest in possibility of breast reduction in the future r/t back pain Gastroesophageal reflux disease 05/05/2022 Overview (07/11/2023): ?? Followed by [facility] ?? Previously on famotidine, symptoms currently well controlled off medication ?? Encourage lifestyle interventions (if applicable) to decrease symptoms including avoid triggering foods (such as coffee, chocolate, fatty foods), tobacco cessation, eating 2-3 hours before lying down, and weight loss. Hidradenitis suppurativa 04/07/2022 Overview (07/11/2023): -Continues with Humira through derm Assessment & Plan (05/18/2022 6:23 AM EST): -Continues with Humira through derm Chronic low back pain 08/07/2020 Migraine without aura 08/07/2020 Assessment & Plan (10/23/2023 7:15 AM EDT): -Frequency: 3-4 times per month -Well controlled with rizatriptan 5mg PRN Assessment & Plan (07/11/2023 4:07 PM EST): -Frequency: 3-4 times per month -Well controlled with rizatriptan 5mg PRN Assessment & Plan (06/19/2023 6:57 PM EST): -Continues with topiramate nightly -Refill rizatriptan 5mg PRN episodic tx Assessment & Plan (05/12/2023 8:42 AM EST): -Continues with topiramate nightly -Start rizatriptan 5mg PRN abortive therapy -Discussed lifestyle factors and possible impacts on migraine frequency -Plan: if symptoms do not improve with the above, plan to trial CGRP antagonist and consider referral to Neurology. Given increasing frequency of migraines w/o clear trigger/factor, interested in CT for further further eval. CT head w/o contrast ordered. Previous med trials: -Sumatriptan: DC d/t GI SE Assessment & Plan (09/08/2022 9:41 PM EDT): -Increase sumatriptan to 50mg PRN. Reviewed med safety and SE Assessment & Plan (05/18/2022 6:22 AM EST): -Continue Topiramate 25mg at bedtime for migraine prevention -Continue sumatriptan 25mg PRN for severe acute migraine relief. Discussed importance of minimizing use as much as possible -Encourage headache hygiene such as remain well hydrated, get adequate sleep, and avoid skipping meals. Resolved Problems Problem Noted Date Diagnosed Date Resolved Date H. pylori infection 05/05/2022 06/19/19 24 High blood pressure 06/15/2017 06/19/19 24 Infected pilonidal cyst 05/13/201606/01 Encounters Date Type Department Care Team Description 05/30/2024 Telephone [facility] [address] [place] [address] Lynn Hinojosa FNP 05/26/2024 11:00 AM EST Telemedicine [facility] [address] [place] [address] Lynn Hinojosa FNP Menorrhagia with regular cycle (Primary Dx); Healthcare maintenance; Squeezing chest pain; Iron deficiency anemia, unspecified iron deficiency anemia type; Migraine without aura and without status migrainosus, not intractable 05/26/2024 Travel 05/25/2024 Telephone [facility] [address] [place] [address] Crystal Peck MA Chart Prep 05/25/2024 Travel 04/07/2024 10:15 AM EST Office Visit [facility] [address] [place] [address] Lynn Hinojosa FNP Menorrhagia with regular cycle (Primary Dx); Iron deficiency anemia, unspecified iron deficiency anemia type; Encounter for immunization 04/07/2024 Travel 04/06/2024 Telephone [facility] [address] [place] [address] Crystal Peck MA Chart Prep from Last 3 Months Immunizations Name Administration Dates Next Due DTaP 01/12/2005, 3,06/28/2001,04/28 DTaP / IPV 02/09/2001 DTaP, 5 pertussis antigens 01/12/2005,,06/28/2001,04/28,02/09/2001 HPV 9-Valent 02/11/2015,01/11/2012 HPV, Quadrivalent 02/21/2013,01/11/2012 HPV, Unspecified 02/11/2015,02/21/2013 Hep A, ped/adol, 2 dose 09/12/2015,02/11/2015 Hep B, Adolescent or Pediatric 06/28/2001,2000,2000 Hep B, adult 08/28/2022,06/05/2022 HiB, unspecified 04/06/2002,06/28/2001, 1 Hib (PRP-T) 04/06/2002, 2,04/28/2001,02/09 IPV 01/12/2005, 2,04/28/2001,02/09 Influenza Injectable Quadriv alant Preservative Free IIV4 MDCK 02/04/2023 Influenza injectable quadriv alent IIV4 with preservative 03/31/2014 Influenza injectable quadriv alent preservative free 04/07/2022,03/25/2021,03/08/2019,06/15,03/10/2016,02/11/2015 Influenza, IIV3, injectable 02/07/2009 Influenza, Split (incl. milka fied surface antigen) 02/21/2013,06/22/2012 Influenza, live, intranasal 01/08/2011 Influenza, seasonal, injecta ble, preservative free 04/07/2024 MMR 01/12/2005,12/30/2001 Meningococcal MCV4P [id number]-135 03/08/2019,01/11/20 12 Moderna Covid-19 Vaccine 12+ 05/26/2021,11/26/19 21,10/04/2020 Novel [id number], all formulations 07/26/2009 Pneumococcal Conjugate PCV 13 12/15/2002 ,06/28/2001,04/28/2001,02/18 Pneumococcal Conjugate PCV 7 12/15/2002, 06/28/2001,04/28/2001,02/09 TD (adult), 2 Lf tetanus tox oid, preservative free, adsorbed 04/07/2022 Tdap 01/11/2012 Varicella 02/18/2007,12/30/2001 Family History Medical History Relation Name Comments Hypertension Brother Hypertension Father Colon cancer Maternal Grandmother Diabetes type I Maternal Grandmother Uterine cancer Mother hysterectomy hidradenitis supperativa Mother Colon cancer Mother's Brother Breast cancer Mother's Sister sciatica Mother's Sister Relation Name Status Comments Brother Father Maternal Grandmother Mother Mother's Brother Mother's Sister Social History Tobacco Use Types Packs/Day Years Used Date Smoking Tobacco: Never Passive Smoke Exposure: Never Smokeless Tobacco: Never Tobacco Cessation:Counseling Given: Not Answered Alcohol Use Standard Drinks/Week Comments Yes 0 [...] Orientation Straight 03/30/2022 10 :24 AM EDT Last Filed Vital Signs Vital Sign Reading Time Taken Comments Blood Pressure 137/75 04/07/2024 10:17 AM EST Pulse 76 04/07/2024 10:17 AM EST Temperature 36.4 ??C (97.6 ??F) 04/07/2024 10:[address] Respiratory Rate 18 04/07/2024 10:17 AM EST Oxygen Saturation 99% 04/07/2024 10:17 AM EST Inhaled Oxygen Concentration - - Weight 115 kg (254 lb 2 oz) 04/07/2024 10:17 AM EST Height 181.6 cm (5' 11.5 ) 04/07/2024 10:[address] Body Mass Index 34.95 04/07/2024 10:17 AM EST Plan of Treatment Health Maintenance Due Date Last Done Comments Alcohol/Substance Use Screening 07/09/2024 07/09/2023 Chlamydia and Gonorrhea Screening 07/09/2024 07/09/2023 Depression Screening 07/09/2024 07/09/2023, 07/09/19 24 SDOH Screening 07/09/2024 07/09/2023 COVID-19 Vaccine ( season) 2025 05/26/2021, 11/25/2020, 10/04/2020 Postponed from 01/30/2024 (Patient Refused) Family Planning (PISQ) 04/09/2025 04/09/2024 Pap Smear 05/15/2025 05/15/2022 Tobacco Screening 05/26/2025 05/26/2024 DTaP/Tdap/Td Vaccines (8 - Td or Tdap) 04/07/2032 04/07/2022, 01/11/2012, 01/12/2005, Additional history exists Zoster Vaccines (1 of 2) 2050 RSV Patients and Patients Aged 60 years or older (1 - 1-dose 75+ series) 12/07/2075 HIB Vaccines Completed 04/06/2002, 11/2001, 06/28/2001, Additional history exists Pneumococcal Vaccine: Pediatrics (0 to 5 Years) and At-Risk Patients (6 to 64 Years) Completed 12/15/2002, 12/15/2002, 06/28/2001, Additional history exists IPV Vaccines Completed 01/12/2005, 11/2001, 04/28/2001, Additional history exists HPV Vaccines Completed 02/11/2015, 01/29, 02/21/2013, Additional history exists Hepatitis A Vaccines Completed 09/12/2015, 02/12/20 15 Meningococcal Vaccine Completed 03/08/2019, 012 Hepatitis B Vaccines Completed 08/28/2022, 06/05/2022, 06/28/2001, Additional history exists Hepatitis C Screening Completed 07/09/2023 HIV Screening Completed 10/11/2023, 07/09/2023 Influenza Vaccine Completed 04/07/2024, , 04/07/2022, Additional history exists RSV under 20 months Aged Out No longe r eligible based on patient's age to complete this topic Rotavirus Vaccines Aged Out No longer eligible based on patient's age to complete this topic Procedures Procedure Name Priority Date/Time Associated Diagnosis Comments C-REACTIVE PROTEIN Routine 06/13/2024 2: 31 PM EST T-SPOT(R).TB Routine 05/29/2024 1:55 PM EST Healthcare maintenance FERRITIN Routine 05/29/2024 1:55 PM EST Healthcare maintenance CBC WITH AUTO DIFFERENTIAL Routine 05/29/2024 1:55 PM EST Healthcare maintenance IRON AND TOTAL IRON BINDING CAPACITY Routine 05/29/2024 1:55 PM EST Healthcare maintenance VITAMIN D,25-OH,TOTAL,IA Routine 05/29/2024 1:55 PM EST Healthcare maintenance COMPREHENSIVE METABOLIC PANEL Routine 05/29/2024 1:55 PM EST Healthcare maintenance HIV 1/2 ANTIGEN/ANTIBODY, FOURTH GENERATION W/RFL Routine 10/11/2023 11:25 AM EDT Lymphadenopathy of right cervical region HEPATITIS C VIRAL RNA, QUANTITATIVE, REAL-TIME PCR Routine 07/09/2023 10:31 AM EST Encounter for routine history and physical examination of adult SURESWAB(R) ADVANCED VAGINITIS PLUS, TMA Routine 07/09/2023 10:31 AM EST Vaginal discharge PAP SMEAR Routine 05/15/2022 12:00 AM EST from Last 3 Months or Most Recently Relevant to Health Maintenance Results * C-reactive Protein (06/13/2024 2:31 PM EST) C Reactive Protein <0.04 < or = 0.50 mg/dL [facility] 06/13/2024 2:31 PM EST 06/13/2024 2:31 PM EST us Generic External Data Provider LAB BLOOD ORDERAB LES Final Result [facility] [address] [place] [phone] * (ABNORMAL) Vitamin D, 25-Hydroxy, Total, Immunoassay (05/29/2024 1:55 PM EST) Vitamin D 25-OH Total 24.4(L) >30 ng/mL [facility] Comment:Health Based Referen ce Values*< 20 ng/mL [id number] ng/mL Insufficient> 30 ng/mL Sufficient*Leighton NIXON. N Engl J Med. 2007;357:266-280Care must be taken in interpreting Vitamin D results fromdifferent laboratories and methodologies. Published datademonstrated that results from patients undergoinghemodialysis may show a negative bias when tested withvarious automated 25-OH vitamin D assays when compared toLC-MS/MS.When testing samples from patients whose predominant form ofVitamin D is Vitamin D2, such as patients receiving VitaminD2 supplementation, results that are subtherapeutic shouldbe confirmed with another method such as LC-MS/MS. Blood Venous blood specimen / Unknown 05/29/2024 1:55 PM EST 05/29/2024 2:31 PM EST Lynn Hinojosa [facility] LAB BLOOD ORDERABLES Final Res ult [facility] [address] [place] [phone] * T-SPOT??.TB (05/29/2024 1:55 PM EST) T Spot TB Negative Negative [facility] Comment:A negative test resu lt does not exclude the possibilityof exposure to or infection with Mycobacteriumtuberculosis (M. tuberculosis). Patients with recentexposure to TB infected individuals exhibiting anegative T-SPOT.TB result should be considered forretesting within 6 weeks or if other relevant clinicalsymptoms indicate. Results from T-SPOT.TB testing mustbe used in conjunction with each individual'sepidemiological history, current medical status,and results of other diagnostic evaluations.The T-SPOT.TB test is qualitative and results arereported as positive, borderline, or negative, giventhat the test controls perform as expected. In linewith the Centers for Disease Control and Prevention's2010 recommendation to report quantitative measurementsalongside the qualitative result, the laboratoryprovides spot counts for informational purposes only.The T-SPOT.TB test should not be interpreted as aquantitative test. TS PANEL A 0 [facility] TS PANEL B 0 [facility] Negative Control Passed [facility] Positive Control Passed [facility] Comment:For additional infor deni, please refer tohttp://education.Domainex/faq/ZQQ350(This link is being provided for informational/educational purposes only.)THIS TEST WAS PERFORMED AT:[employer] [id number] [place] [id number] Ole LEWIS MD,PHD 05/29/2024 1:55 PM EST 05/29/2024 2:31 PM EST us Lynn Hinojosa RATTAN WORKER LAB BLOOD ORDERABLES Final Res ult [facility] [address] [place] [phone] * (ABNORMAL) CBC auto differential (05/29/2024 1:55 PM EST) White Blood Count 6.6 4.8 - 10.8 X10*3/uL [facility] Red Blood Count 3.95(L) 4.20 - 5.50 X10*6/uL [facility] Hemoglobin 12.0 12.0 - 16.0 g/dl [facility] Hematocrit 35.3(L) 37.0 - 47.0 % [facility] Mean Corpuscular Volume 89.4 80.0 - 98.0 fL [facility] Mean Corpuscular Hemoglobin 30.4 27.0 - 33.0 pg [facility] Mean Corpuscular HGB Conc 34.0 31.0 - 35.0 g/dl [facility] Red Cell Distribution Width 13.3 11.0 - 16.0 % [facility] Platelet Count 269 160 - 400 X10*3/uL [facility] Mean Platelet Volume 11.4 9.4 - 12.3 fL [facility] Neutrophils Percent Auto 39.2(L) 45 - 73 % [facility] Imm Gran Pct Auto 0.2 0.0 - 0.4 % [facility] Lymphocytes Percent Auto 44.7(H) 20 - 40 % [facility] Monocytes Percent Auto 8.6 2 - 11 % [facility] Eosinophils Percent Auto 6.8(H) 0 - 4 % [facility] Basophils Percent Auto 0.5 0 - 2 % [facility] NRBC Pct Auto 0.0 0.0 - 0.2 /100WBC [facility] Neutrophils Absolute Auto 2.6 2.0 - 8.3 x10*3/uL [facility] Imm Gran Abs Auto 0.01 0.00 - 0.03 X10*3/uL [facility] Lymphocytes Absolute Auto 3.0 1.2 - 4.9 X10*3/uL [facility] Monocytes Absolute Auto 0.6 0.1 - 1.2 X10*3/uL [facility] Eosinophils Absolute Auto 0.5(H) 0.0 - 0.4 X10*3/uL [facility] Basophils Absolute Auto 0.0 0.0 - 0.2 X10*3/uL [facility] NRBC Abs Auto 0.000 0.0 - 0.012 X10*3/uL [facility] Blood Venous blood specimen / Unknown 05/29/2024 1:55 PM EST 05/29/2024 2:31 PM EST us Lynn Hinojosa RATTAN WORKER LAB BLOOD ORDERABLES Final Res ult [facility] [address] [place], [place] [phone] * Iron And Total Iron Binding Capacity (05/29/2024 1:55 PM EST) Iron 43 30 - 160 mcg/dL [facility] Total Iron Binding Capacity 270 228 - 428 mcg/dL [facility] Percent Iron Saturation 16 15 - 50 % [facility] Unsaturated Iron Binding 227 ug/dL [facility] Blood Venous blood specimen / Unknown 05/29/2024 1:55 PM EST 05/29/2024 2:31 PM EST Lynn Hinojosa [facility] LAB BLOOD ORDERABLES Final Res ult Performing Organization Address [facility] Co de Phone Number [facility] [address] [place] [phone] * Ferritin (05/29/2024 1:55 PM EST) Ferritin 50 10 - 122 ng/mL [facility] Blood Venous blood specimen / Unknown 05/29/2024 1:55 PM EST 05/29/2024 2:31 PM EST Lynn Hinojosa [facility] LAB BLOOD ORDERABLES Final Res ult Performing Organization Address [facility] de Phone Number [facility] [address] [place] [phone] * (ABNORMAL) Comprehensive Metabolic Panel (05/29/2024 1:55 PM EST) Sodium 139 135 - 145 mmol/L [facility] Potassium 4.5 3.3 - 5.1 mmol/L [facility] Chloride 108 96 - 108 mmol/L [facility] Carbon Dioxide 24 22 - 29 mmol/L [facility] Anion Gap 12 12 - 20 [facility] Urea Nitrogen (BUN) 11 9 - 16 mg/dL [facility] Creatinine, Serum 0.80 0.5 - 1.4 mg/dL [facility] Estimated Glomerular Filt Rate >60 [facility] Comment:Chronic Kidney Disea se: Estimated GFR < 60 mL/min/[id number] Kidney Disease: Estimated GFR < 15 mL/min/1.73m2 Glucose 81 60 - 115 mg/dL [facility] Calcium 9.6 8.4 - 10.2 mg/dL [facility] Bilirubin, Total 0.4 0.0 - 1.0 mg/dL [facility] Aspartate Amino Transferase 18 5 - 31 U/L [facility] Alanine Aminotransferase 17 0 - 31 U/L [facility] Total Protein 7.4 6.5 - 8.0 g/dL [facility] Albumin Level 4.4 3.5 - 5.0 g/dL [facility] Alkaline Phosphatase 38(L) 39 - 117 U/L [facility] Blood Venous blood specimen / Unknown 05/29/2024 1:55 PM EST 05/29/2024 2:31 PM EST us Lynn Hinojosa RATTAN WORKER LAB BLOOD ORDERABLES Final Res ult Performing Organization Address [facility]/ZIP Co de Phone Number [facility] [address] [place] [phone] * HIV-1/2 Antigen and Antibodies, Fourth Generation, with Reflexes (10/11/2023 11:25 AM EDT) HIV AB/AG Nonreactive Nonreactive [facility] Comment:HIV-1 p24 Ag and/or HIV-1/HIV-2 Ab not detected.A test result that is nonreactive does not exclude thepossibility of exposure to or infection with HIV-1 and/orHIV-2. Nonreactive results in this assay for individualswith prior exposure to HIV-1 and/or HIV-2 may be due toantigen and antibody levels that are below the limit ofdetection of this assay.[employer] HIV Ag/Ab Combo assay result andsupplemental assay results should be interpreted inconjunction with the patient's clinical presentation,history and other laboratory results. If the results areinconsistent with clinical evidence, additional testing issuggested to confirm the result. Blood Venous blood specimen / Unknown 10/11/2023 11:25 AM EDT 10/11/2023 2:32 PM EDT us Joycelyn Calvo MD LAB BLOOD ORDERABLES Final Re sult [facility] [address] [place] [address] [phone] * SureSwab?? Advanced Vaginitis Plus, TMA (07/09/2023 10:31 AM EST) Pathologist [facility] CTNG Ref Lab NOT DETECTED NOT DETECTED [facility] NG Ref Lab NOT DETECTED NOT DETECTED [facility] Comment:For additional infor deni, please refer totps://education.Domainex/faq/PEC552(This link is being provided for information/educational purposes only.)THIS TEST WAS PERFORMED AT:[employer] [place] [id number] ROJO MD SureSwab 9R) ADV Bacterial Vaginosis (BV), TMA NEGATIVE NEGATIVE [facility] Josette Species NOT DETECTED NOT DETECTED [facility] Josette glabrata NOT DETECTED NOT DETECTED [facility] Comment:Josette species C. a lbicans, C. tropicalis,C. parapsilosis, and/or C. dubliniensis can be detected,but not differentiated, in the Josette spp. result. Trichomonas vaginalis (TV), TMA NOT DETECTED NOT DETECTED [facility] Swab Vaginal structure / Unknown 07/09/2023 10:31 AM EST 07/09/2023 2:15 PM EST Lynn Hinojosa RATTAN WORKER LAB BODY FLUIDS AND STOOLS ORD ERABLES Final Result [facility] [address] [place] [phone] * Hepatitis C Viral RNA, Quantitative, Real-Time PCR (07/09/2023 10:31 AM EST) Pathologist [facility] Hepatitis C Viral Load <15 NOT DETECTED NOT DETECTED IU/mL [facility] HCV Log PCR <1.18 NOT DETECTED NOT DETECTED Log IU/mL [facility] Comment:This test was perfor med using Real-Time Polymerase ChainReaction.Reportable Range: 15 IU/mL to 100,000,000 IU/mL(1.18 Log IU/mL to 8.00 Log IU/mL).The analytical performance characteristics of thisassay have been determined by [employer].The modifications have not been cleared or approved bythe FDA. This assay has been validated pursuant to theCLIA regulations and is used for clinical purposes.For more information on this test, go to:http://education.Domainex/faq/FZI88e8(This link is being provided for informational/educational purposes only.)THIS TEST WAS PERFORMED AT:[employer] [place] [id number] ROJO MD Blood 07/09/2023 10:3 1 AM EST 07/09/2023 2:15 PM EST Lynn Hinojosa RATTAN WORKER LAB BLOOD ORDERABLES Final Res ult Performing Organization Address [facility]/ZIP Co de Phone Number [facility] [address] [place] [phone] * Pap Smear (05/15/2022 12:00 AM EST) Swab Historical Provider LAB CYTOLOGY ORDERABLES F inal Result Performing Organization Address [facility] Co de Phone Number [facility] [address] [place] [phone] from Last 3 Months or Most Recently Relevant to Health Maintenance Insurance C3 Care Teams Cotton Stomper Relationship Specialty Start Date End Date Lynn Hinojosa FNP [address] [place] [address] PCP - General Family Medicine 01/20/[address] [place] [address] 3rd [place] [address] Gastroenterology 05/28/24
--- OUTSIDE RECORDS SUMMARY | 2024-06-27 16:11 | XMS_ITS | Encounter Summary ---
Author Organization [facility] Address [address] [place] [address] Phone Care Team Providers Care Catering Associate Name Role Phone Elly Mayes MD Primary Care Provider [phone] Encounter Details Date Type Department Care Team (Late st Contact Info) Description 04/11/2012 Documentation [facility] Family Medicine [address] [place], [place] [phone] Family Medicine, Physician [address] [place] [address] Social History Tobacco Use Types Packs/Day Years [...] on filedocumented in this encounter Care Teams Catering Associate Relationship Specialty Start Date End Date Elly Mayes MD [address] [place] [address] [place] [address] PCP - General 01/08/17 09/09/22 documented as of this encounter
--- OUTSIDE RECORDS SUMMARY | 2024-06-27 16:11 | XMS_ITS | Encounter Summary ---
Author Organization [employer] Address [address] [facility] 7t [place] [address] Care Team Providers Care Director Of Special Services Name Role Phone Lynn Hinojosa Primary Care Provider [phone] August Encounter Details Date Type Department Care Team (Late st Contact Info) Description 06/23/2022 Orders Only [facility] [address] [place] [address] Lynn Hinojosa FNP [address] [place], [place] [phone] Social History Tobacco Use Types Packs/Day Years Used Date Smoking Tobacco: Never Passive Smoke Exposure: Never Smokeless Tobacco: Never Alcohol Use Standard Drinks/Week Comments Yes 0 (1 standard drink = 0.6 oz pur e alcohol) social use Depression Answer Date Recorded Patient Health Questionnaire-2 Score 2 05/15/2022 Comments No Sex and Gender Information Value [...] suspected to have Coronavirus/COVID-19? No / Unsure 06/10/2022 1:54 PM EST documented as of this encounter Plan of Treatment Not on file documented as of this encounter Visit Diagnoses Not on filedocumented in this encounter Care Teams Director Of Special Services Relationship Specialty Start Date End Date Lynn Hinojosa FNP [address] [place] [address] PCP - General Family Medicine 01/20/22August [address] [place] [address] 3rd [place] [address] Gastroenterology 05/28/24 documented as of this encounter
--- OUTSIDE RECORDS SUMMARY | 2024-06-27 16:11 | XMS_ITS | Encounter Summary ---
Author Organization [facility] Address [address] [place] [address] Phone Care Team Providers Care Steamfitter Apprentice Name Role Phone Elly Mayes MD Primary Care Provider [phone] Encounter Details Date Type Department Care Team (Late st Contact Info) Description 01/14/2017 Conversion Encounter [facility] [address] [address] Social History Tobacco Use Types Packs/Day Years [...] on filedocumented in this encounter Care Teams Steamfitter Apprentice Relationship Specialty Start Date End Date Elly Mayes MD [address] [place] [address] PCP - General 01/08/17 09/09/22 documented as of this encounter
--- OUTSIDE RECORDS SUMMARY | 2024-06-27 16:11 | XMS_ITS | Encounter Summary ---
Author Organization [employer] Address [address] [facility] [address] [place] [address] Care Team Providers Care Beam Machine Operator Name Role Phone Lynn Hinojosa Primary Care Provider [phone] August Reason for Visit * Reason Onset Date Comments Appointment Request 08/21/2022 Encounter Details Date Type Department Care Team (Late st Contact Info) Description 08/21/2022 Telephone [facility] [address] [place] [address] Lynn Hinojosa FNP [address] [place] [address] Appointment Request Social History Tobacco Use Types Packs/Day Years [...] encounter Miscellaneous Notes * Telephone Encounter - Boubacar Jerome - 08/21/2022 9:40 AM EDT Tc from pt requesting to r/s appt on 08/21/22 ( Hep B #2 ) Please contact pt at [phone] documented in this encounter Plan of Treatment Not on file documented as of this encounter Visit Diagnoses Not on filedocumented in this encounter Care Teams Beam Machine Operator Relationship Specialty Start Date End Date Lynn Hinojosa FNP [address] [place] [address] PCP - General Family Medicine 01/20/22August [address] [place] [address] 3rd [place] [address] Gastroenterology 05/28/24 documented as of this encounter
--- OUTSIDE RECORDS SUMMARY | 2024-06-27 16:11 | XMS_ITS | Clinical Summary ---
[facility] Organization [facility] Address [address] [place] [address] Care Team Providers Care Loss Prevention Associate Name Role Phone Edith Wells NP Primary Care Provider [phone] Social History Tobacco Use Types Packs/Day Years Used Date Smoking Tobacco: Never Smokeless Tobacco: Never Alcohol Use Standard Drinks/Week Comments No 0 (1 standard drink = 0.6 oz pur e alcohol) Sex and Gender Information Value Date Recorded Sex Assigned at Not on file Gender Identity Not on file Sexual Orientation Not on file Obstetrics History Plan of Treatment Health Maintenance Due Date Last Done Comments Gonorrhea/Chlamydia Screening 2000 COVID-19 Vaccine (#1) 2005 HPV Vaccines (1 - 3-dose series) 12/07/2015 DTaP,Tdap,and Td Vaccines (1 - Tdap) 12/07/2019 Hepatitis B Vaccines (1 of 3 - 19+ 3-dose series) 12/07/2019 Cervical Cancer Screening: P ap Smear 2021 Depression Screening 05/03/2022 HIV Screening 05/03/2022 Hepatitis C Screening 05/03/2022 Social Influencers of Health Screening 05/03/2022 Influenza Vaccine (#1) 2024 HIB Vaccines Aged Out No longer eligi ble based on patient's age to complete this topic Hepatitis A Vaccines Aged Out No long er eligible based on patient's age to complete this topic IPV Vaccines Aged Out No longer eligi ble based on patient's age to complete this topic MMR Vaccines Aged Out No longer eligi ble based on patient's age to complete this topic Meningococcal ACWY Vaccine Aged Out N o longer eligible based on patient's age to complete this topic Pneumococcal Vaccine: Pediat rics (0 to 5 Years) and At-Risk Patients (6 to 64 Years) Aged Out No longer eligible b ased on patient's age to complete this topic RSV Immunization Patients Un francesco 20 months Aged Out No longer eligible b ased on patient's age to complete this topic Varicella Vaccines Aged Out No longer eligible based on patient's age to complete this topic Care Teams Loss Prevention Associate Relationship Specialty Start Date End Date Edith Wells NP [facility] [address] [place] [address] PCP - General Pediatrics 07/22/20
[2024-06-28 09:14] LABS: Adenovirus F 40/41 Not Detected (Not Detect.); Astrovirus Not Detected (Not Detect.); Campylobacter Not Detected (Not Detect.); Cryptosporidium Not Detected (Not Detect.); Cyclospora cayetanensis Not Detected (Not Detect.); E. coli EAEC Not Detected (Not Detect.); E. coli EPEC Not Detected (Not Detect.); E. coli ETEC Not Detected (Not Detect.); E. coli STEC Not Detected (Not Detect.); Entamoeba histolytica Not Detected (Not Detect.); Giardia lamblia Not Detected (Not Detect.); Norovirus GI/GII Not Detected (Not Detect.); Plesiomonas shigelloides Not Detected (Not Detect.); Rotavirus A Not Detected (Not Detect.); Salmonella Not Detected (Not Detect.); Sapovirus Not Detected (Not Detect.); Shigella sp./EIEC Not Detected (Not Detect.); Vibrio Not Detected (Not Detect.); Vibrio Cholerae Not Detected (Not Detect.); Yersinia enterocolitica Not Detected (Not Detect.)
[2024-07-03 19:34] LABS: Pancreatic Elastase-1 >800 mcg/g (>200)
[2024-07-04 20:10] LABS: Calprotectin, Fecal 14 mcg/g
== END 2024-06-27 15:15 | disposition home or self-care (01) ==
LOC: HO.LNP 15:14
PROVIDERS: Visit Provider Nurse Practitioner
DX: A04.4 Other intestinal Escherichia coli infections (principal); R19.7 Diarrhea, unspecified; K21.9 Gastro-esophageal reflux disease without esophagitis; R10.13 Epigastric pain
CPT/HCPCS: 82656; 83993; 87507

== ENCOUNTER 2024-09-21 07:24 | Day surgery (SDC) | payer MEDICAID, SELFPAY ==
--- OUTSIDE RECORDS SUMMARY | 2024-08-02 06:23 | XMS_ITS | Encounter Summary ---
Author Organization [employer] Address [address] [facility] [address] [place] [address] Care Team Providers Care Milk Treater Name Role Phone Lynn Hinojosa Primary Care Provider [phone] August Reason for Visit * Reason Onset Date Comments Appointment Request 08/21/2022 Encounter Details Date Type Department Care Team (Late st Contact Info) Description 08/21/2022 Telephone [facility] [address] [place] [address] Lynn Hinojosa FNP [address] [place] [address] Appointment Request Social History Tobacco Use Types [...] B #2 ) Please contact pt at [phone] documented in this encounter Plan of Treatment Not on file documented as of this encounter Visit Diagnoses Not on filedocumented in this encounter Care Teams Milk Treater Relationship Specialty Start Date End Date Lynn Hinojosa FNP [address] [place] [address] PCP - General Family Medicine 01/20/22August [address] [place] [address] 3rd [place] [address] Gastroenterology 05/28/24 documented as of this encounter
--- OUTSIDE RECORDS SUMMARY | 2024-08-02 06:23 | XMS_ITS | Encounter Summary ---
Author Organization [facility] Address [address] [place] [address] Phone Care Team Providers Care Marine Designer Name Role Phone Elly Mayes MD Primary Care Provider [phone] Encounter Details Date Type Department Care Team (Late st Contact Info) Description 04/08/2012 Documentation [facility] Family Medicine [address] [place], [place] [phone] Family Medicine, Physician [address] [place] [address] Social History Tobacco Use Types Packs/Day Years [...] on filedocumented in this encounter Care Teams Marine Designer Relationship Specialty Start Date End Date Elly Mayes MD [address] [place] [address] [place] [address] PCP - General 01/08/17 09/09/22 documented as of this encounter
--- OUTSIDE RECORDS SUMMARY | 2024-08-02 06:23 | XMS_ITS | Encounter Summary ---
Author Organization [facility] Address [address] [place] [address] Phone Care Team Providers Care Furnace Charger Name Role Phone Elly Mayes MD Primary Care Provider [phone] Encounter Details Date Type Department Care Team (Late st Contact Info) Description 04/11/2012 Documentation [facility] Family Medicine [address] [place], [place] [phone] Family Medicine, Physician [address] [place] [address] Social History Tobacco Use Types Packs/Day Years [...] on filedocumented in this encounter Care Teams Furnace Charger Relationship Specialty Start Date End Date Elly Mayes MD [address] [place] [address] [place] [address] PCP - General 01/08/17 09/09/22 documented as of this encounter
--- OUTSIDE RECORDS SUMMARY | 2024-08-02 06:23 | XMS_ITS | Encounter Summary ---
Author Organization [employer] Address [address] [facility] 7t [place] [address] Care Team Providers Care Nursery Rn Name Role Phone Lynn Hinojosa Primary Care Provider [phone] August Encounter Details Date Type Department Care Team (Late st Contact Info) Description 06/23/2022 Orders Only [facility] [address] [place] [address] Lynn Hinojosa FNP [address] [place], [place] [phone] Social History Tobacco Use Types Packs/Day Years [...] on filedocumented in this encounter Care Teams Nursery Rn Relationship Specialty Start Date End Date Lynn Hinojosa FNP [address] [place] [address] PCP - General Family Medicine 01/20/22August [address] [place] [address] 3rd [place] [address] Gastroenterology 05/28/24 documented as of this encounter
--- OUTSIDE RECORDS SUMMARY | 2024-08-02 06:23 | XMS_ITS | Encounter Summary ---
Author Organization [facility] Address [address] [place] [address] Phone Care Team Providers Care Video Operator Name Role Phone Elly Mayes MD Primary Care Provider [phone] Encounter Details Date Type Department Care Team (Late st Contact Info) Description 11/20/2009 Documentation [facility] [place] Medicine [address] [place], [place] [phone] Family Medicine, Physician [address] [place] [address] Social History Tobacco Use Types Packs/Day Years [...] on filedocumented in this encounter Care Teams Video Operator Relationship Specialty Start Date End Date Elly Mayes MD [address] [place] [address] [place] [address] PCP - General 01/08/17 09/09/22 documented as of this encounter
--- OUTSIDE RECORDS SUMMARY | 2024-08-02 06:23 | XMS_ITS | Encounter Summary ---
Author Organization [facility] Address [address] [place] [phone] Phone Care Team Providers Care Varnish Cooker Name Role Phone Elly Mayes MD Primary Care Provider [phone] Encounter Details Date Type Department Care Team (Late st Contact Info) Description 11/17/2012 Documentation [facility] [place] [address] [place], [place] [phone] Family Medicine, Physician [address] [place] [address] Social History Tobacco Use Types Packs/Day Years [...] on filedocumented in this encounter Care Teams Varnish Cooker Relationship Specialty Start Date End Date Elly Mayes MD [address] [place] [address] [place] [address] PCP - General 01/08/17 09/09/22 documented as of this encounter
--- OUTSIDE RECORDS SUMMARY | 2024-08-02 06:23 | XMS_ITS | Clinical Summary ---
Author Organization [employer] Address [address] [facility] 7t [place] [address] Care Team Providers Care Forest Products Teacher Name Role Phone Lynn Hinojosa EDUCATION DEAN Primary Care Provider [phone] August Unavailable Allergies No known active allergies [...] recommended. Nabothian cysts seen on the cervix. CANDY CUTTER MACHINE consult July 2022 at [facility] in [facility] Hx of migraine +/- aura. Recommended [...] PM EDT): -Identified during ED visit at [facility] 10/04/23 -US completed September 2023 with impression [...] disease 05/05/2022 Overview (07/11/2023): ?? Followed by [facility] ?? Previously on famotidine, symptoms currently [...] Type Department Care Team Description 05/30/2024 Telephone [facility] [address] [place] [address] Lynn Hinojosa FNP 05/26/2024 11:00 AM EST Telemedicine [facility] [address] [place] [address] Lynn Hinojosa FNP Menorrhagia with regular cycle (Primary Dx); Healthcare maintenance; Squeezing chest pain; Iron deficiency anemia, unspecified iron deficiency anemia type; Migraine without aura and without status migrainosus, not intractable 05/26/2024 Travel 05/25/2024 Telephone [facility] [address] [place] [address] Crystal Peck [place] Chart Prep 05/25/2024 Travel from Last 3 Months Immunizations Name Administration [...] Moderna Covid-19 Vaccine 12+ 05/26/2021,11/26/19 21,10/04/2020 Novel [id number], all formulations 07/26/2009 Pneumococcal Conjugate PCV 13 [...] Date Last Done Comments Alcohol/Substance Use Screening 2012 Chlamydia and Gonorrhea Screening 07/09/2024 07/09/2023 Depression [...] 5 Years) and At-Risk Patients (6 to 49) Years) Completed 12/15/2002, 12/15/2002, 06/28/2001, Additional history [...] Protein <0.04 < or = 0.50 mg/dL [facility] 06/13/2024 2:31 PM EST 06/13/2024 2:31 PM EST us Generic External Data Provider LAB BLOOD ORDERAB LES Final Result [facility] [address] [place] [phone] * (ABNORMAL) Vitamin D, 25-Hydroxy, Total, Immunoassay (05/29/2024 1:55 PM EST) Vitamin D 25-OH Total 24.4(L) >30 ng/mL [facility] Comment:Health Based Referen ce Values*< 20 ng/mL Yqgnsilaa11-50 ng/mL Insufficient> 30 ng/mL Sufficient*Leighton NIXON. N [...] PM EST 05/29/2024 2:31 PM EST Lynn Bridgettetrinh [facility] LAB BLOOD ORDERABLES Final Res ult [facility] [address] [place] [address] [phone] * T-SPOT??.TB (05/29/2024 1:55 PM EST) [facility] T Spot TB Negative Negative [facility] Comment:A negative test resu lt does [...] as aquantitative test. TS PANEL A 0 [facility] TS PANEL B 0 [facility] Negative Control Passed [facility] Positive Control Passed [facility] Comment:For additional infor deni, please refer tohttp://education.[employer]/faq/CLP097(This link is being provided for informational/educational purposes only.)THIS TEST WAS PERFORMED AT:[employer]/[id number] [place] [id number] LEWIS MD,PHD 05/29/2024 1:55 PM EST 05/29/2024 2:31 PM EST us Lynn Hinojosa EDUCATION DEAN LAB BLOOD ORDERABLES Final Res ult [facility] [address] [place] [address] [phone] * (ABNORMAL) CBC auto differential (05/29/2024 1:55 PM EST) White Blood Count 6.6 4.8 - 10.8 X10*3/uL [facility] Red Blood Count 3.95(L) 4.20 - 5.50 X10*6/uL [facility] Hemoglobin 12.0 12.0 - 16.0 g/dl [facility] Hematocrit 35.3(L) 37.0 - 47.0 % [facility] Mean Corpuscular Volume 89.4 80.0 - 98.0 fL [facility] Mean Corpuscular Hemoglobin 30.4 27.0 - 33.0 pg [facility] Mean Corpuscular HGB Conc 34.0 31.0 - 35.0 g/dl [facility] Red Cell Distribution Width 13.3 11.0 - 16.0 % [facility] Platelet Count 269 160 - 400 X10*3/uL [facility] Mean Platelet Volume 11.4 9.4 - 12.3 fL [facility] Neutrophils Percent Auto 39.2(L) 45 - 73 % [facility] Imm Gran Pct Auto 0.2 0.0 - 0.4 % [facility] Lymphocytes Percent Auto 44.7(H) 20 - 40 % [facility] Monocytes Percent Auto 8.6 2 - 11 % [facility] Eosinophils Percent Auto 6.8(H) 0 - 4 % [facility] Basophils Percent Auto 0.5 0 - 2 % [facility] NRBC Pct Auto 0.0 0.0 - 0.2 /100WBC [facility] Neutrophils Absolute Auto 2.6 2.0 - 8.3 x10*3/uL [facility] Imm Gran Abs Auto 0.01 0.00 - 0.03 X10*3/uL [facility] Lymphocytes Absolute Auto 3.0 1.2 - 4.9 X10*3/uL [facility] Monocytes Absolute Auto 0.6 0.1 - 1.2 X10*3/uL [facility] Eosinophils Absolute Auto 0.5(H) 0.0 - 0.4 X10*3/uL [facility] Basophils Absolute Auto 0.0 0.0 - 0.2 X10*3/uL [facility] NRBC Abs Auto 0.000 0.0 - 0.012 X10*3/uL [facility] Blood Venous blood specimen / Unknown 05/29/2024 1:55 PM EST 05/29/2024 2:31 PM EST Lynn Ashish EDUCATION DEAN LAB BLOOD ORDERABLES Final Res ult Performing Organization Address City/[facility]/ZIP Co de Phone Number [facility] [address] [place] [address] [phone] * Iron And Total Iron Binding Capacity (05/29/2024 1:55 PM EST) Iron 43 30 - 160 mcg/dL [facility] Total Iron Binding Capacity 270 228 - 428 mcg/dL [facility] Percent Iron Saturation 16 15 - 50 % [facility] Unsaturated Iron Binding 227 ug/dL [facility] Blood Venous blood specimen / Unknown 05/29/2024 1:55 PM EST 05/29/2024 2:31 PM EST Lynn Phaltrinh EDUCATION DEAN LAB BLOOD ORDERABLES Final Res ult Performing Organization Address City/[facility]/ZIP Co de Phone Number [facility] [address] [place] [address] [phone] * Ferritin (05/29/2024 1:55 PM EST) Ferritin 50 10 - 122 ng/mL [facility] Blood Venous blood specimen / Unknown 05/29/2024 1:55 PM EST 05/29/2024 2:31 PM EST us Lynn Hinojosa EDUCATION DEAN LAB BLOOD ORDERABLES Final Res ult [facility] [address] [place] [address] [phone] * (ABNORMAL) Comprehensive Metabolic Panel (05/29/2024 1:55 PM EST) Sodium 139 135 - 145 mmol/L [facility] Potassium 4.5 3.3 - 5.1 mmol/L [facility] Chloride 108 96 - 108 mmol/L [facility] Carbon Dioxide 24 22 - 29 mmol/L [facility] Anion Gap 12 12 - 20 [facility] Urea Nitrogen (BUN) 11 9 - 16 mg/dL [facility] Creatinine, Serum 0.80 0.5 - 1.4 mg/dL [facility] Estimated Glomerular Filt Rate >60 [facility] Comment:Chronic Kidney Disea se: Estimated GFR < 60 mL/min/1.94x8Iksiip Kidney Disease: Estimated GFR < 15 mL/min/1.73m2 Glucose 81 60 - 115 mg/dL [facility] Calcium 9.6 8.4 - 10.2 mg/dL [facility] Bilirubin, Total 0.4 0.0 - 1.0 mg/dL [facility] Aspartate Amino Transferase 18 5 - 31 U/L [facility] Alanine Aminotransferase 17 0 - 31 U/L [facility] Total Protein 7.4 6.5 - 8.0 g/dL [facility] Albumin Level 4.4 3.5 - 5.0 g/dL [facility] Alkaline Phosphatase 38(L) 39 - 117 U/L [facility] Blood Venous blood specimen / Unknown 05/29/2024 1:55 PM EST 05/29/2024 2:31 PM EST us Lynnbayron Hinojosa EDUCATION DEAN LAB BLOOD ORDERABLES Final Res ult Performing Organization Address [facility] Co de Phone Number [facility] [address] [place] [address] [phone] * HIV-1/2 Antigen and Antibodies, Fourth Generation, with Reflexes (10/11/2023 11:25 AM EDT) Pathologist [facility] HIV AB/AG Nonreactive Nonreactive [facility] Comment:HIV-1 p24 Ag and/or HIV-1/HIV-2 Ab not detected.A test result that is nonreactive does not exclude thepossibility of exposure to or infection with HIV-1 and/orHIV-2. Nonreactive results in this assay for individualswith prior exposure to HIV-1 and/or HIV-2 may be due toantigen and antibody levels that are below the limit ofdetection of this assay.The [employer]aven HIV Ag/Ab Combo assay result andsupplemental assay results should be interpreted inconjunction with the patient's clinical presentation,history and other laboratory results. If the results areinconsistent with clinical evidence, additional testing issuggested to confirm the result. Blood Venous blood specimen / Unknown 10/11/2023 11:25 AM EDT 10/11/2023 2:32 PM EDT us Joycelyn Calvo MD LAB BLOOD ORDERABLES Final Re sult Performing Organization Address [facility]/ZIP Co de Phone Number [facility] [address] [place] [phone] * SureSwab?? Advanced Vaginitis Plus, TMA (07/09/2023 10:31 AM EST) Pathologist [facility] CTNG Ref Lab NOT DETECTED NOT DETECTED [facility] NG Ref Lab NOT DETECTED NOT DETECTED [facility] Comment:For additional infor deni, please refer tohttps://education.[employer]/faq/AAK980(This link is being provided for information/educational purposes only.)THIS TEST WAS PERFORMED AT:[employer] [place] [id number] ROJO MD SureSwab 9R) ADV Bacterial Vaginosis (BV), TMA NEGATIVE NEGATIVE [facility] Josette Species NOT DETECTED NOT DETECTED [facility] Josette glabrata NOT DETECTED NOT DETECTED [facility] Comment:Josette species C. a lbicans, C. tropicalis,C. parapsilosis, and/or C. dubliniensis can be detected,but not differentiated, in the Josette spp. result. Trichomonas vaginalis (TV), TMA NOT DETECTED NOT DETECTED [facility] Swab Vaginal structure / Unknown 07/09/2023 10:31 AM EST 07/09/2023 2:15 PM EST Lynn Hinojosa [facility] LAB BODY FLUIDS AND STOOLS ORD ERABLES Final Result [facility] [address] [place] [phone] [phone] * Hepatitis C Viral RNA, Quantitative, Real-Time PCR (07/09/2023 10:31 AM EST) Hepatitis C Viral Load <15 NOT DETECTED NOT DETECTED IU/mL [facility] HCV Log PCR <1.18 NOT DETECTED NOT DETECTED Log IU/mL [facility] Comment:This test was perfor med using Real-Time Polymerase ChainReaction.Reportable Range: 15 IU/mL to 100,000,000 IU/mL(1.18 Log IU/mL to 8.00 Log IU/mL).The analytical performance characteristics of thisassay have been determined by [employer].The modifications have not been cleared or approved bythe FDA. This assay has been validated pursuant to theCLIA regulations and is used for clinical purposes.For more information on this test, go to:http://education.[employer]/faq/DNJ05y3(This link is being provided for informational/educational purposes only.)THIS TEST WAS PERFORMED AT:[employer] [place] [id number] ROJO MD Blood 07/09/2023 10:3 1 AM EST 07/09/2023 2:15 PM EST Lynn Hinojosa EDUCATION DEAN LAB BLOOD ORDERABLES Final Res ult Performing Organization Address [facility]/ZIP Co de Phone Number [facility] [address] [place] [phone] * Pap Smear (05/15/2022 12:00 AM EST) Swab Historical Provider LAB CYTOLOGY ORDERABLES F inal Result Performing Organization Address [facility] Co de Phone Number [facility] [address] [place] [phone] from Last 3 Months or Most Recently Relevant to Health Maintenance Insurance [facility] C3 Care Teams Forest Products Teacher Relationship Specialty Start Date End Date Lynn Hinojosa FNP [address] [place] [address] PCP - General Family Medicine 01/20/[address] [place] [address] Drive 3rd [place] [address] Gastroenterology 05/28/24
--- OUTSIDE RECORDS SUMMARY | 2024-08-02 06:23 | XMS_ITS | Encounter Summary ---
Author Organization [facility] Address [address] [place] [address] Phone Care Team Providers Care Project Program Manager Name Role Phone Elly Mayes MD Primary Care Provider [phone] Encounter Details Date Type Department Care Team (Late st Contact Info) Description 06/06/2012 Documentation [facility] [place] [address] [place], [place] [phone] Family Medicine, Physician [address] [place] [address] Social History Tobacco Use Types Packs/Day Years [...] on filedocumented in this encounter Care Teams Project Program Manager Relationship Specialty Start Date End Date Elly Mayes MD [address] [place] [address] [place] [address] PCP - General 01/08/17 09/09/22 documented as of this encounter
--- OUTSIDE RECORDS SUMMARY | 2024-08-02 06:23 | XMS_ITS | Clinical Summary ---
Author Organization [facility] Address [address] [phone] Care Team Providers Care Materials Associate Name Role Phone Edith Wells Primary Care Provider [phone] Social History Tobacco Use Types Packs/Day Years [...] age to complete this topic Care Teams Materials Associate Relationship Specialty Start Date End Date Edith Wells [address] [facility] [place] [address] PCP - General Pediatrics 07/22/20
--- OUTSIDE RECORDS SUMMARY | 2024-08-02 06:23 | XMS_ITS | Encounter Summary ---
Author Organization [facility] Address [address] [place] [address] Phone Care Team Providers Care Veneer Taping Machine Offbearer Name Role Phone Elly Mayes MD Primary Care Provider Encounter Details Date Type Department Care Team (Late st Contact Info) Description 11/28/2012 Documentation [facility] Family Medicine [address] [place], [place] [phone] Family Medicine, Physician [address] [place] [address] Social History Tobacco Use Types Packs/Day Years [...] on filedocumented in this encounter Care Teams Veneer Taping Machine Offbearer Relationship Specialty Start Date End Date Elly Mayes MD [address] [place] [address] [place] [address] PCP - General 01/08/17 09/09/22 documented as of this encounter
--- OUTSIDE RECORDS SUMMARY | 2024-08-02 06:23 | XMS_ITS | Data Portability ---
Author Organization [place] [facility] Address [address] [place] [phone] Assessment No assessment recorded. Plan of Treatment [...] Organization Details Recorded Time Recurrent acute tonsillitis [id number] Active 2024 MAIK OROZCO MD [address] [address], [place], [phone] [place] [facility] 5 11:21:26 Problem Notes None recorded. Medical [...] Updated DateTime 06/05/2024 180.34 cm 30.7 kg/m2 62325.32 g Alfred Noonan [facility] 06/05/2024 11:07:42 Social History None recorded. Functional [...] SNOMED-CT Code Diagnosis ICD10 Code Diagnosis Note [id number] MAIK SIM MD [facility] [address] [phone] 06/05/2024 10:49:56 06/05/2024 11:23:18 Recurrent acute tonsillitis [id number] J03.91 Patient reports 2-3 episodes of tonsilliti [...] Stone Member ID Guarantor Name 06/05/2024 1 MEDICAID[place]: [facility] [id number] [facility] Notes Date Note Type Note Provider Name and Address Organization Details Recorded Time 06/05/2024 text/html Had illness last December with tonsil swelling and stones. Had some ear aches. 2-3 episodes per year and in between she is fineNo issues for 5 months MAIK MCKEON MD [address] [place] [address], [phone], [place] [facility] 06/05/2024 11:22:27 OBGyn Episode No OBEpisode recorded.
--- OUTSIDE RECORDS SUMMARY | 2024-08-02 06:23 | XMS_ITS | Encounter Summary ---
Author Organization [facility] Address [address] [place] [address] Phone Care Team Providers Care End Finder Twisting Department Name Role Phone Elly Mayes MD Primary Care Provider [phone] Encounter Details Date Type Department Care Team (Late st Contact Info) Description 07/03/2013 Documentation [facility] [place] [address] [place], [place] [phone] Family Medicine, Physician [address] [place] [address] Social History Tobacco Use Types Packs/Day Years [...] on filedocumented in this encounter Care Teams End Finder Twisting Department Relationship Specialty Start Date End Date Elly Mayes MD [address] [place] [address] [place] [address] PCP - General 01/08/17 09/09/22 documented as of this encounter
--- OUTSIDE RECORDS SUMMARY | 2024-08-02 06:23 | XMS_ITS | Encounter Summary ---
Author Organization [facility] Address [address] [place] [address] Phone Care Team Providers Care Relocation Coordinator Name Role Phone Elly Mayes MD Primary Care Provider [phone] Encounter Details Date Type Department Care Team (Late st Contact Info) Description 03/29/2012 Documentation [facility] [place] Family Medicine [address] [place], [place] [phone] Family Medicine, Physician [address] [place] [address] Social History Tobacco Use Types Packs/Day Years [...] on filedocumented in this encounter Care Teams Relocation Coordinator Relationship Specialty Start Date End Date Elly Mayes MD [address] [place] [address] [place] [address] PCP - General 01/08/17 09/09/22 documented as of this encounter
--- OUTSIDE RECORDS SUMMARY | 2024-08-02 06:23 | XMS_ITS | Encounter Summary ---
Author Organization [facility] Address [address] [place] [address] Phone Care Team Providers Care Seo Manager Name Role Phone Elly Mayes MD Primary Care Provider [phone] Encounter Details Date Type Department Care Team (Late st Contact Info) Description 07/21/2012 Documentation [facility] [place] [address] [place], [place] [phone] Family Medicine, Physician [address] [place] [address] Social History Tobacco Use Types Packs/Day Years [...] on filedocumented in this encounter Care Teams Seo Manager Relationship Specialty Start Date End Date Elly Mayes MD [address] [place] [address] [place] [address] PCP - General 01/08/17 09/09/22 documented as of this encounter
--- OUTSIDE RECORDS SUMMARY | 2024-08-02 06:24 | XMS_ITS | Clinical Summary ---
Author Organization [facility] Address [address] [place] [address] Phone Care Team Providers Care Asphalt Tar And Gravel Roofer Name Role Phone Unavailable Primary Care Provider Unavailabl e Immunizations Immunization Administration Dates Next Due DTaP 5 01/12/2005, [...] Diabetes mellitus, No family history of Sudden /NE under age 55, Family history of Cancer, [...]
--- OUTSIDE RECORDS SUMMARY | 2024-08-02 06:24 | XMS_ITS | Clinical Summary ---
Author Organization [facility] Address [address] [place] [address] Care Team Providers Care Produce Buyer Name Role Phone Edith Wells Primary Care Provider [phone] Source Comments Please note that some or [...] so, obtain the minor's consent prior to disclosure.[facility] Social History Tobacco Use Types Packs/Day [...] age to complete this topic Care Teams Produce Buyer Relationship Specialty Start Date End Date Edith Wells CPNP [address] [place] [address] PCP - General Nurse Practitioner 11/03/17
--- OUTSIDE RECORDS SUMMARY | 2024-08-02 06:24 | XMS_ITS | Encounter Summary ---
Author Organization [facility] Address [address] [place] [address] Phone Care Team Providers Care Meter Readers Supervisor Name Role Phone Elyl Mayes MD Primary Care Provider [phone] Encounter Details Date Type Department Care Team (Late st Contact Info) Description 01/14/2017 Conversion Encounter [facility] [address] [address] Social History Tobacco Use Types Packs/Day Years [...] on filedocumented in this encounter Care Teams Meter Readers Supervisor Relationship Specialty Start Date End Date Elly Mayes MD [address] [place] [address] PCP - General 01/08/17 09/09/22 documented as of this encounter
--- OUTSIDE RECORDS SUMMARY | 2024-08-02 06:24 | XMS_ITS | Encounter Summary ---
Author Organization [employer] Address [address] [place] [address] [address] [place] [address] Care Team Providers Care Link Trainer Maintenance Man Name Role Phone Lynn Hinojosa Primary Care Provider [phone] August Unavailable Encounter Details Date Type Department Care Team (Late st Contact Info) Description 05/14/2022 Orders Only [facility] [address] [place] [address] Sofiya Garcia RN Social History Tobacco Use [...] on filedocumented in this encounter Care Teams Link Trainer Maintenance Man Relationship Specialty Start Date End Date Lynn Hinojosa FNP [address] [place] [address] PCP - General Family Medicine 01/20/22 Tadeo August [address] [place] [address] Drive 3rd [place] [address] Gastroenterology 05/28/24 documented as of this encounter
--- OUTSIDE RECORDS SUMMARY | 2024-08-02 06:24 | XMS_ITS | Encounter Summary ---
Author Organization [employer] Address [address] [place] [address] [address] [place] [address] Care Team Providers Care Front End Driver Name Role Phone Lynn Hinojosa Primary Care Provider [phone] Piedraaugust Unavailable Encounter Details Date Type Department Care Team (Late st Contact Info) Description 05/12/2022 Abstract [facility] [address] [place], [place] [phone] Provider, MD Robert Social History Tobacco Use [...] on filedocumented in this encounter Care Teams Front End Driver Relationship Specialty Start Date End Date Lynn Hinojosa FNP [address] [place] [address] PCP - General Family Medicine 01/20/22 Tadeo, [address] [place] [address] Gastroenterology 05/28/24 documented as of this encounter
--- OUTSIDE RECORDS SUMMARY | 2024-08-02 06:24 | XMS_ITS | Encounter Summary ---
Author Organization [employer] Address [address] [facility] 7 [place] [address] Care Team Providers Care Broom Machine Operator Name Role Phone Lynn Hinojosa Primary Care Provider [phone] August Reason for Visit * Reason Comments Med Refill Encounter Details Date Type Department Care Team ([facility] st Contact Info) Description 09/23/2023 Refill [facility] [address] [place], [place] [phone] Lynn Hinojosa FNP [address] [place] [address] Social History Tobacco Use Types Packs/Day Years [...] documented as of this encounter Care Teams Broom Machine Operator Relationship Specialty Start Date End Date Lynn Hinojosa FNP [address] [place] [address] PCP - General Family Medicine 01/20/22August [address] [place] [address] Drive [address] [place] [address] Gastroenterology 05/28/24 documented as of this encounter
--- OUTSIDE RECORDS SUMMARY | 2024-08-02 06:24 | XMS_ITS | Clinical Summary ---
Author Organization [employer] [facility] ity Address [address] [place] [address] Care Team Providers Care Floor Care Specialist Name Role Phone Edith Wells NP Primary Care Provider [phone] Social History Tobacco Use Types Packs/Day Years Used Date Smoking Tobacco: Never Smokeless Tobacco: Never Alcohol Use Standard Drinks/Week Comments No 0 (1 standard drink = 0.6 oz pur e alcohol) Comments Unknown Sex and Gender Information Value Date Recorded Sex Assigned at Not on file Legal Sex Female 10:52 PM EST Gender Identity Not on file Sexual Orientation Not on file Obstetrics History Plan of Treatment Health Maintenance Due Date Last Done Comments Gonorrhea/Chlamydia Screening 2000 COVID-19 Vaccine (#1) 2005 HPV Vaccines (1 - 3-dose series) 12/07/2015 Meningococcal B Vacine (1 of 2 - Standard) 2016 DTaP,Tdap,and Td Vaccines (1 - Tdap) 12/07/2019 [...] age to complete this topic Care Teams Floor Care Specialist Relationship Specialty Start Date End Date Edith Wells NP [facility] [address] [place] [id number] PCP - General Pediatrics 07/22/20
[2024-09-19 09:08] VITALS: BMI 35.0
--- NOTE | 2024-09-20 08:57 | HO.ANESPROP2 ---
Documented by User: Melania Blanchard NP 09/20/24 08:57 HPI - Anesthesia Eval Consult details Narrative: 23yo F for Upper Endoscopy and Colonoscopy PMF Active Problems Active Problems: All Active Problems Pre-op examination (Acute) E coli enteritis (Acute) Acute diarrhea (Acute) Loose stools (Acute) GERD (gastroesophageal reflux disease) (Acute) Epigastric pain (Acute) H. pylori infection (Acute) Anemia (Chronic) Past Medical History Medical History Pilonidal cyst Depression Anemia Family History Family History Maternal Grandmother Colon cancer Maternal Uncle Colon cancer Mother History of hysterectomy Hidradenitis suppurativa Surgical History Surgical History History of back surgery Social History Social History Household Members: Family Housing: House Are you a primary critical care specialist to a significant other at home: No Do you presently have visiting nurse or other home services: No Alcohol intake: current Alcohol intake frequency: holidays/special occasions only Patient Tobacco Use Status: Never used Tobacco Use of substances other than those prescribed or required for medical reasons: No Are you DNR?: No Advance Directives: No Advance Directives Information Provided: Yes service: No Current occupational status: employed Meds Allergies Allergy/AdvReac Type Severity Reaction Status Date / Time No Known Allergies Allergy Verified 09/21/24 07:46 Home Medications ?Medication ?Instructions ?Recorded ?Confirmed ?Last Taken ?Type adalimumab 80 mg/0.8 mL 80 mg subcut Q2W 05/13/22 09/21/24 Unknown History subcutaneous pen kit (Humira(CF) Pen) albuterol sulfate 90 mcg/actuation 2 puff inhalation Q4H PRN wheezing 04/20/23 09/21/24 Unknown History aerosol inhaler (Ventolin HFA) cetirizine 10 mg tablet 10 mg PO BEDTIME PRN yes 04/20/23 09/21/24 Unknown History azelaic acid 15 % topical gel 15 appl topical BEDTIME 03/15/24 09/21/24 Unknown History cholecalciferol (vitamin D3) 50 50 mcg PO DAILY 03/15/24 09/21/24 Unknown History mcg (2,000 unit) capsule triamcinolone acetonide 0.025 % 0.025 appl topical BID 03/15/24 09/21/24 Unknown History topical cream drospirenone (contraceptive) 4 mg 1 tab PO DAILY 06/13/24 09/21/24 Unknown History (28) tablet (Slynd) ferrous gluconate 324 mg (38 mg 324 mg PO DAILY 06/13/24 09/21/24 Unknown History iron) tablet rizatriptan 5 mg tablet 5 mg PO DAILY PRN yes 06/13/24 09/21/24 Unknown History sertraline 50 mg tablet 50 mg PO DAILY 06/13/24 09/21/24 Unknown History Exam Height,Weight and Vital Signs: Height 5 ft 11 in Weight 113.852 kg Assessment and Plan Assessment Anesthesia Assessment: Chart Reviewed Documented by User: Rut Galdamez MD 09/21/24 09:01 [facility] Past Medical History Medical History Pilonidal cyst Depression Anemia Family History Family History Maternal Grandmother Colon cancer Maternal Uncle Colon cancer Mother History of hysterectomy Hidradenitis suppurativa Family history of problems with anesthesia: No Surgical History Surgical History History of back surgery History of Problems with Anesthesia: No Social History Social History Household Members: Family Housing: House Are you a primary critical care specialist to a significant other at home: No Do you presently have visiting nurse or other home services: No Alcohol intake: current Alcohol intake frequency: holidays/special occasions only Patient Tobacco Use Status: Never used Tobacco Use of substances other than those prescribed or required for medical reasons: No Are you DNR?: No Advance Directives: No Advance Directives Information Provided: Yes service: No Current occupational status: employed Meds Allergies Allergy/AdvReac Type Severity Reaction Status Date / Time No Known Allergies Allergy Verified 09/21/24 07:46 Home Medications ?Medication ?Instructions ?Recorded ?Confirmed ?Last Taken ?Type adalimumab 80 mg/0.8 mL 80 mg subcut Q2W 05/13/22 09/21/24 Unknown History subcutaneous pen kit (Humira(CF) Pen) albuterol sulfate 90 mcg/actuation 2 puff inhalation Q4H PRN wheezing 04/20/23 09/21/24 Unknown History aerosol inhaler (Ventolin HFA) cetirizine 10 mg tablet 10 mg PO BEDTIME PRN yes 04/20/23 09/21/24 Unknown History azelaic acid 15 % topical gel 15 appl topical BEDTIME 03/15/24 09/21/24 Unknown History cholecalciferol (vitamin D3) 50 50 mcg PO DAILY 03/15/24 09/21/24 Unknown History mcg (2,000 unit) capsule triamcinolone acetonide 0.025 % 0.025 appl topical BID 03/15/24 09/21/24 Unknown History topical cream drospirenone (contraceptive) 4 mg 1 tab PO DAILY 06/13/24 09/21/24 Unknown History (28) tablet (Slynd) ferrous gluconate 324 mg (38 mg 324 mg PO DAILY 06/13/24 09/21/24 Unknown History iron) tablet rizatriptan 5 mg tablet 5 mg PO DAILY PRN yes 06/13/24 09/21/24 Unknown History sertraline 50 mg tablet 50 mg PO DAILY 06/13/24 09/21/24 Unknown History Exam Height,Weight and Vital Signs: Height 5 ft 11 in Weight 113.852 kg Vital Signs Temp Pulse Resp BP Pulse Ox O2 Del Method 09/21/24 08:06 97.5 F 78 16 124/70 100 Room Air Pertinent Lab Results Pertinent Lab Results: Lab Results 09/21/24 Range/Units 07:43 Urine Test NEGATIVE (NEGATIVE) Airway Mallampati Class: I TM Dist: >3cm Neck ROM: Full Loose/Missing/Broken Teeth: Yes ([place] teeth missing. Denies broken or loose teeth) Heart: RRR Lungs: CTAB Assessment and Plan Assessment Anesthesia Assessment: Anesthesia Plan Discussed and Chart Reviewed Final Anesthetic Review Family History of Problems with Anesthesia: No History of Problems with Anesthesia: No NPO: Yes ASA Class: II Final Preanesthetic Review: No Changes in Pt Med Stat, Meds/Allgs Chart Reviewed, Consent Obtained/Reviewed and Anes Risks/Benef Reviewed Patient Risk: Low Procedure Risk: Low Assessment/Block/Sedation in SS: Assess/Block/Sedation-SS Anesthetic Plan Anesthetic Plan: TIVA Disposition: Standard PACU
[2024-09-21 07:56] LABS: UPreg QC Valid YES
[2024-09-21 07:58] LABS: Urine Pregnancy NEGATIVE (NEGATIVE)
[2024-09-21 08:04] VITALS: BMI 34.9
[2024-09-21 08:06] VITALS: BP 124/70; PULSE 78; RESP 16; TEMP 36.4; O2SAT 100
[2024-09-21] MEDS: Lactated Ringers 1,000 ML 100 ML IVCONT (08:15)
--- NOTE | 2024-09-21 08:25 | MHC.SHP ---
Pre-Procedural Eval Section A - 24 Hr Update-Section A only Date of Service: 09/21/24 Section B - Complete if H&P > 30 days Chief Complaint: Diarrhea, unspecified Details of Present Illness: Pilonidal cyst Depression Anemia Surgical History History of back surgery Present Medications: see Short Stay Collaborative assessment Allergies: Allergies Allergy/AdvReac Type Severity Reaction Status Date / Time No Known Allergies Allergy Verified 09/21/24 07:46 Review of Systems Review of Systems Comment: Ten point ROS negative Exam Exam Comment: Gen appear: No acute distress HEENT: no icterus Chest: No overt resp distress Abd: soft, nontender, nondistended Psych: Stable affect, answering questions appropriately Neuro: A/Ox3 noted to move all extremities spontaneously Ext: no peripheral edema Plan Diagnosis/Plan: Unchanged I have reviewed the history and physical and performed a pertinent physical examination on my patient. No changes have occurred unless specified. Time Spent With Patient Time: Total time managing care of this patient today ____ minutes.
--- NOTE | 2024-09-21 09:04 | P.OPN-COLO_ITS ---
Colonoscopy Operative Note Operative Note Date of Service: 09/21/24 Narrative: Procedure: Upper endoscopy and colonoscopy Indication: Epigastric pain, chronic diarrhea Endoscopist: Juanita Fuentes MD Anesthesia Provider: Dr Rut Galdamez Anesthesia type: MAC Instrument: [id number] and [id number] EGD Procedure:?? The procedure, indications, preparation and potential complications were reviewed with the patient, who indicated understanding and gave written informed consent to proceed. The endoscope was introduced through the mouth, and advanced to the 2nd part of the duodenum. The mucosa was carefully examined on slow withdrawal of the endoscope. The patient tolerated the procedure well. There were no immediate complications.? EGD Findings:? * Esophagus:? Normal esophageal mucosa was noted. The Z-line was at 42 cm. Cold forceps biopsies were taken from middle and lower esophagus to rule out eosino philic esophagitis. * Stomach:? Normal gastric mucosa. Retroflexion was performed in the cardia. Random cold forceps biopsies were taken from the stomach. * Duodenum:? Normal duodenal mucosa. Cold forceps biopsies were taken from the duodenal bulb and 2nd portion of the duodenum to rule out celiac sprue. Colonoscopy Procedure:? The patient was then turned for the colonoscopy. A digital rectal exam was performed which was normal.? A distal attachment cap was affixed to the tip of the scope and the colonoscope was then inserted through the anus and advanced through the colon and advanced to the cecum at 75 cm and terminal ileum.? Appendiceal orifice and ileocecal valve were identified. Mucosa was carefully examined under high definition white light as the instrument was slowly withdrawn in a retrograde panoramic fashion. Retroflexion was performed in rectum. The procedure was not difficult. The quality of the prep was BBPS: 3+2+3 = adequate Withdrawal time 6 minutes Limitations: No limitations Findings: Mucosa: Normal colon and terminal ileum mucosa. Cold forceps biopsies were taken from the right and left side of the colon to rule out microscopic colitis. Protruding lesions: * Small internal hemorrhoids without stigmata of recent bleeding. Impression: 1. Normal esophagus (biopsy) 2. Normal stomach (biopsy) 3. Normal duodenum (biopsy) 4. Normal colon and terminal ileum mucosa (biopsy) 5. Small internal hemorrhoids Recommendations:?? * Follow-up path results * Avoid NSAIDs * H Pylori treatment if biopsies + * Colorectal cancer screening to begin at 45 y.o
[2024-09-21 09:10] VITALS: BP 112/60; PULSE 78; RESP 16; TEMP 37.3; O2SAT 100
[2024-09-21 09:25] VITALS: BP 118/69; PULSE 55; RESP 15; TEMP 37.2; O2SAT 100
== END 2024-09-21 10:02 | disposition home or self-care (01) ==
PROVIDERS: Nurse Practitioner; PCP Registered Nurse; Visit Provider Internal Medicine
PROC: (CPT 45380; principal; 2024-09-21 08:50)
DX: K64.8 Other hemorrhoids (principal); K52.9 Noninfective gastroenteritis and colitis, unspecified; R10.13 Epigastric pain; D64.9 Anemia, unspecified; Z79.899 Other long term (current) drug therapy
CPT/HCPCS: 45380; 43239; 81025; 88305; 88313; 88342; J1596; J2003; J2704

== ENCOUNTER → 2024-09-21 07:24 | Outpatient (BNV) | payer MEDICAID, SELFPAY | PROVIDERS: PCP Registered Nurse; Visit Provider Internal Medicine | DX: R10.13 Epigastric pain (principal); K52.9 Noninfective gastroenteritis and colitis, unspecified; K64.8 Other hemorrhoids | CPT/HCPCS: 43239; 45380 ==

== ENCOUNTER 2024-10-18 13:42 | Outpatient (AMB) | payer MEDICAID, SELFPAY ==
[2024-10-18 13:44] VITALS: BP 140/70; PULSE 63; O2SAT 99; BMI 36.2
--- NOTE | 2024-10-18 13:44 | A.OFFVIS_ITS ---
Vital Signs 10/18/24 13:44 Height 5 ft 11 in Weight 259 lb 4.218 oz BMI 36.2 BP 140/70 H Blood Pressure Location Lt brachial Position Sitting Pulse 63 Pulse Source Pulse Oximeter Pulse Oximetry (%) 99 Oxygen Delivery Method Room Air Intake Visit Reasons: f/u rescheduled Intake Note: Pt presents to the office today for a f/u. Pt states she does still experience some pain when eating but states it isn't as bad as before. Allergies No Known Allergies Allergy (Verified 10/18/24 13:45) HPI HPI f/u rescheduled: Details: Assessment & Plan (1) E coli enteritis: Code(s): A04.4 - Other intestinal Escherichia coli infections Category: Medical (2) GERD (gastroesophageal reflux disease): Code(s): K21.9 - Gastro-esophageal reflux disease without esophagitis Category: Medical (3) Epigastric pain: Code(s): R10.13 - Epigastric pain Category: Medical (4) Acute diarrhea: Code(s): R19.7 - Diarrhea, unspecified Category: Medical (5) Pre-op examination: Code(s): Z01.818 - Encounter for other preprocedural examination Category: Medical Plan RAST panel shows no significant food allergies. She is not doing well. she continues to have severe post prandial diarrhea and severe epigastric pain. The sucralfate did not help, but is not upsetting her stomach ir causing a/e. She was only taking 1 a day, so we ill increase the dose to 2-3 a day. If this does not work will progress. Repeat GI panel, stool sharlene, and panc elastase. Also CRP. Also will get EGD/colonoscopy. Her maternal grandmother had colon polyps and TICS. No anesthesia or sedation problems. She denies any cardiac or respiratory problems. No ID problems. ROV 6 weeks Orders: Orders Calprotectin, Fecal Today A04.4 - Other intestinal Escherichia coli infections, K21.9 - Gastro-esophageal reflux disease without esophagitis, R10.13 - Epigastric pain, R19.7 - Diarrhea, unspecified GI Panel Today A04.4 - Other intestinal Escherichia coli infections, K21.9 - Gastro-esophageal reflux disease without esophagitis, R10.13 - Epigastric pain, R19.7 - Diarrhea, unspecified C Reactive Protein Today A04.4 - Other intestinal Escherichia coli infections, K21.9 - Gastro-esophageal reflux disease without esophagitis, R10.13 - Epigastric pain, R19.7 - Diarrhea, unspecified EGD/[place] Combo - GI Use Only Today A04.4 - Other intestinal Escherichia coli infections, K21.9 - Gastro-esophageal reflux disease without esophagitis, R10.13 - Epigastric pain, R19.7 - Diarrhea, unspecified Pancreatic Elastase-1 Today R10.13 - Epigastric pain, R19.7 - Diarrhea, unspecified Medications: Changed From sucralfate (Carafate) 1 g PO DAILY 30 tabs 3RF K21.9 - Gastro-esophageal reflux disease without esophagitis, R10.13 - Epigastric pain To sucralfate (Carafate) 3 grams (3 x 1 gram) PO DAILY 30 tabs 6RF K21.9 - Gastro-esophageal reflux disease without esophagitis, R10.13 - Epigastric pain LABS: Laboratory Tests 06/13/24 06/27/24 14:31 14:34 C-Reactive Protein < 0.04 Stool Calprotectin 14 Stool Pancreat Elastase >800 06/27/24-[address]: ORDERED: GI Panel Test Result Flag Reference Campylobacter Not Detected Not Detect. P. shigelloides Not Detected Not Detect. Salmonella Not Detected Not Detect. Vibrio Not Detected Not Detect. Vibrio Cholerae Not Detected Not Detect. Y. enterocolit. Not Detected Not Detect. E. coli EAEC Not Detected Not Detect. E. coli EPEC Not Detected Not Detect. E. coli ETEC Not Detected Not Detect. E. coli STEC Not Detected Not Detect. E. coli O157 Not applicable Not Detect. E. coli containing the O157 antigen are a subset of Shiga-like toxin-producing E. coli (STEC). Shigella/EIEC Not Detected Not Detect. Cryptosporidium Not Detected Not Detect. Cyclospora Not Detected Not Detect. E. histolytica Not Detected Not Detect. Giardia lamblia Not Detected Not Detect. Adenovirus Not Detected Not Detect. Astrovirus Not Detected Not Detect. Norovirus Not Detected Not Detect. Rotavirus A Not Detected Not Detect. Sapovirus Not Detected Not Detect. EGD/COLONOSCOPY 09/21/24 EGD Findings:? * Esophagus:? Normal esophageal mucosa was noted. The Z-line was at 42 cm. Cold forceps biopsies were taken from middle and lower esophagus to rule out eosinophilic esophagitis. * Stomach:? Normal gastric mucosa. Retroflexion was performed in the cardia. Random cold forceps biopsies were taken from the stomach. * Duodenum:? Normal duodenal mucosa. Cold forceps biopsies were taken from the duodenal bulb and 2nd portion of the duodenum to rule out celiac sprue. Findings: Mucosa: Normal colon and terminal ileum mucosa. Cold forceps biopsies were taken from the right and left side of the colon to rule out microscopic colitis. Protruding lesions: * Small internal hemorrhoids without stigmata of recent bleeding. Impression: 1. Normal esophagus (biopsy) 2. Normal stomach (biopsy) 3. Normal duodenum (biopsy) 4. Normal colon and terminal ileum mucosa (biopsy) 5. Small internal hemorrhoids Recommendations:?? * Follow-up path results * Avoid NSAIDs * H Pylori treatment if biopsies + * Colorectal cancer screening to begin at 45 y.o BIOPSY Received: 09/21/24 Diagnosis A. Duodenum, biopsy: Duodenal mucosa within normal limits. B. Stomach, random, biopsy: Antral-type and oxyntic mucosa with moderate chronic inactive inflammation; no Helicobacter organisms seen. C. Esophagus, lower, biopsy: Squamous epithelium within normal limits; no inflammation seen. D. Esophagus, middle, biopsy: Squamous epithelium within normal limits; no inflammation seen. E. Colon, right, biopsy: Colonic mucosa within normal limits. F. Colon, left, biopsy: Colonic mucosa within normal limits TODAY'S VISIT She has been doing better and better w/o the sulcralfate. She will have occasional dyspepsia with eating particularly heavier greasy foods but otherwise she is quite happy with her improvement. The diarrhea seems to have stopped. I let her know that there is no reason for her diarrhea in terms of severe disease in that she did not seem to have any food allergies, inflammatory bowel disease, pancreatic insufficiency, or new infectious reasons. She is aware that she does not need anymore colonoscopies for screening purposes until she reaches age 45. The procedure was well tolerated. The results were explained and the patient is agreeable to the follow-up interval as stated. The bowel pattern has returned to normal. Education was provided to tell any 1st degree relatives about their findings to be sure that they are screened by age 45. Educated that they will be put on a recall list when it is time for their repeat scope but should they move out of state or away from the hospital they will need to remember along with their primary to repeat the procedure in a timely fashion to avoid any adverse complications. ROBERT londonon. [facility] Medical History (Updated 10/18/24 @ 13:53 by DEANA Hope) E coli enteritis H. pylori infection Loose stools Pre-op examination Pilonidal cyst Depression Anemia Surgical History History of back surgery Family History Maternal Grandmother Colon cancer Maternal Uncle Colon cancer Mother History of hysterectomy Hidradenitis suppurativa Social History Household Members: Family Housing: House Are you a primary health care marketing manager to a significant other at home: No Do you presently have visiting nurse or other home services: No Alcohol intake: current Alcohol intake frequency: holidays/special occasions only Patient Tobacco Use Status: Never used Tobacco service: No Current occupational status: employed Review [employer] Systems Const Denies fatigue, Denies fever(s), Denies night sweats, Denies poor appetite and Denies weight loss ENT Reports Normal hearing present, Denies dental pain, Denies dysphagia, Denies hearing loss, Denies mouth pain, Denies odynophagia, Denies throat swelling, Denies tongue swelling and Reports other (Dentition adequate) Card Reports no additional complaints Resp Reports no additional complaints GI Details: Denies abdominal pain, Denies melena, Denies bloating, Denies hematochezia, Denies constipation, Denies GI cramping, Denies dysphagia, Denies excessive flatus, Denies early satiety, Reports dyspepsia, Denies heartburn, Denies diarrhea, Denies nausea, Denies odynophagia, Denies vomiting and Denies hematemesis Skin/Breast Denies pruritus, Denies lesions, Denies rash and Denies jaundice Neuro Reports Normal hearing present and Denies Abnormal speech present Endo Denies fatigue Aller/Immun Denies throat swelling and Denies tongue swelling Physical Exam Vital Signs: Last Vital Signs Pulse 63 10/18/24 13:44 BP 140/70 H 10/18/24 13:44 Pulse Ox 99 10/18/24 13:44 Oxygen Delivery Method Room Air 10/18/24 13:44 BMI result Body Mass Index 36.2 Const General: cooperative, no acute distress, well developed and well groomed Nutritional Appearance: well nourished and overweight Orientation/consciousness: oriented to person, oriented to place and oriented to time Limitations: No language barrier HEENT Head: Yes normocephalic and Yes atraumatic Eyes General: appearance normal, both eyes and all related structures Pupils: Equal, round and reactive pupils present Neck Neck: Yes normal visual inspection and Yes no lymphadenopathy Thyroid: Thyroid normal Resp Effort & Inspection: normal respiratory effort and able to speak in complete sentences Auscultation: clear to auscultation bilaterally Cardio Rate: regular rate Rhythm: regular rhythm Heart sounds: Normal, physiologic split S2 sound present Peripheral pulses: radial pulses present and posterior tibial pulses present GI Inspection: No distended, No Abdominal panniculus present and Yes obesity Palpation (GI): Soft to palpation, nontender, no guarding, not rigid and No hepatosplenomegaly present Percussion: Yes normal to percussion Auscultation: normal bowel sounds Rectal Exam - Female: deferred Skin General skin exam: no rashes or lesions noted, turgor normal, skin not dry, no jaundice, No spider nevi and no striae Rashes: no rashes Nails: normal Neuro General: oriented to person, oriented to place and oriented to time Cranial nerves: Yes Equal, round and reactive pupils present and Yes Normal hearing present Speech: No Abnormal speech present Extrem General: Yes normal to inspection, No clubbing, No cyanosis and No edema Psych Appearance: grossly normal and well kempt Mental Status: mental status grossly normal Speech and movement: Normal speech and movement present Affect: normal affect Attitude: cooperative Thought process: Normal thought process present and not confabulating Thought content: Normal thought content present Insight: Good insight present (Psych) Judgement: Good judgement present (Psych) Results Reviewed Results Reviewed: Laboratory Tests 06/13/24 06/27/24 14:31 14:34 C-Reactive Protein < 0.04 Stool Calprotectin 14 Stool Pancreat Elastase >800 06/27/24-[address]: ORDERED: GI Panel Test Result Flag Reference Campylobacter Not Detected Not Detect. P. shigelloides Not Detected Not Detect. Salmonella Not Detected Not Detect. Vibrio Not Detected Not Detect. Vibrio Cholerae Not Detected Not Detect. Y. enterocolit. Not Detected Not Detect. E. coli EAEC Not Detected Not Detect. E. coli EPEC Not Detected Not Detect. E. coli ETEC Not Detected Not Detect. E. coli STEC Not Detected Not Detect. E. coli O157 Not applicable Not Detect. E. coli containing the O157 antigen are a subset of Shiga-like toxin-producing E. coli (STEC). Shigella/EIEC Not Detected Not Detect. Cryptosporidium Not Detected Not Detect. Cyclospora Not Detected Not Detect. E. histolytica Not Detected Not Detect. Giardia lamblia Not Detected Not Detect. Adenovirus Not Detected Not Detect. Astrovirus Not Detected Not Detect. Norovirus Not Detected Not Detect. Rotavirus A Not Detected Not Detect. Sapovirus Not Detected Not Detect. EGD/COLONOSCOPY 09/21/24 EGD Findings:? * Esophagus:? Normal esophageal mucosa was noted. The Z-line was at 42 cm. Cold forceps biopsies were taken from middle and lower esophagus to rule out eosinophilic esophagitis. * Stomach:? Normal gastric mucosa. Retroflexion was performed in the cardia. Random cold forceps biopsies were taken from the stomach. * Duodenum:? Normal duodenal mucosa. Cold forceps biopsies were taken from the duodenal bulb and 2nd portion of the duodenum to rule out celiac sprue. Findings: Mucosa: Normal colon and terminal ileum mucosa. Cold forceps biopsies were taken from the right and left side of the colon to rule out microscopic colitis. Protruding lesions: * Small internal hemorrhoids without stigmata of recent bleeding. Impression: 1. Normal esophagus (biopsy) 2. Normal stomach (biopsy) 3. Normal duodenum (biopsy) 4. Normal colon and terminal ileum mucosa (biopsy) 5. Small internal hemorrhoids Recommendations:?? * Follow-up path results * Avoid NSAIDs * H Pylori treatment if biopsies + * Colorectal cancer screening to begin at 45 y.o BIOPSY Received: 09/21/24 Diagnosis A. Duodenum, biopsy: Duodenal mucosa within normal limits. B. Stomach, random, biopsy: Antral-type and oxyntic mucosa with moderate chronic inactive inflammation; no Helicobacter organisms seen. C. Esophagus, lower, biopsy: Squamous epithelium within normal limits; no inflammation seen. D. Esophagus, middle, biopsy: Squamous epithelium within normal limits; no i nflammation seen. E. Colon, right, biopsy: Colonic mucosa within normal limits. F. Colon, left, biopsy: Colonic mucosa within normal limits Assessment & Plan Assessment & Plan (1) Acute diarrhea: Code(s): R19.7 - Diarrhea, unspecified Category: Medical (2) GERD (gastroesophageal reflux disease): Code(s): K21.9 - Gastro-esophageal reflux disease without esophagitis Category: Medical (3) Epigastric pain: Code(s): R10.13 - Epigastric pain Category: Medical Plan She has been doing better and better w/o the sulcralfate. She will have occasional dyspepsia with eating particularly heavier greasy foods but otherwise she is quite happy with her improvement. The diarrhea seems to have stopped. I let her know that there is no reason for her diarrhea in terms of severe disease in that she did not seem to have any food allergies, inflammatory bowel disease, pancreatic insufficiency, or new infectious reasons. She is aware that she does not need anymore colonoscopies for screening purposes until she reaches age 45. The procedure was well tolerated. The results were explained and the patient is agreeable to the follow-up interval as stated. The bowel pattern has returned to normal. Education was provided to tell any 1st degree relatives about their findings to be sure that they are screened by age 45. Educated that they will be put on a recall list when it is time for their repeat scope but should they move out of state or away from the hospital they will need to remember along with their primary to repeat the procedure in a timely fashion to avoid any adverse complications. ROV prn. Coding Level of Care Code Est Pt Level 3 (94189) Diagnoses Acute diarrhea R19.7 GERD (gastroesophageal reflux disease) K21.9 Epigastric pain R10.13
--- OUTSIDE RECORDS SUMMARY | 2024-10-18 14:11 | XMS_ITS | Clinical Summary ---
Author Organization [employer] Address [address] [facility] 7t [place] [address] Care Team Providers Care Yard Laborer Name Role Phone Lynn Hinojosa SHOE DESIGNER Primary Care Provider August Allergies No known active allergies Medications * [...] after a meal 36 tablet 4 Active cholecalciferol (Vitamin D-3) 50 MCG (2000 UT) capsule Take 1 capsule (50 mcg) by [...] 24 hours. 9 tablet 2 4 Active triamcinolone (Kenalog) 0.025 % creamIndication s:Dermatitis Apply topically 2 times daily. Use for up to 1-2 weeks. 15 g 2 5 Active Active Problems Problem Noted Date Diagnosed [...] recommended. Nabothian cysts seen on the cervix. TRANSMISSION SUPERINTENDENT consult July 2022 at [facility] Hx of migraine +/- aura. Recommended progesterone [...] PM EDT): -Identified during ED visit at [facility] 10/04/23 -US completed September 2023 [...] disease 05/05/2022 Overview (07/11/2023): ?? Followed by [facility] ?? Previously on famotidine, symptoms currently [...] Encounters Date Type Department Care Team Description 08/31/2024 Travel 08/31/2024 Telephone [facility] [address] [place] [address] Lynn Hinojosa FNP July08/30/2024 10:45 AM EDT Office Visit [facility] [address] [place] [address] Juliana Poe MD Dermatitis 08/30/2024 Travel 08/22/2024 Patient Outreach [facility] [address] [place], [place] [phone] Lynn Hionjosa FNP Pre-visit Planning (SDOH screening negative and Tobacco screening negative) 08/11/2024 Population Health Risk Score [facility] Department [address] [place] [phone] Provider, Population Health Generic from Last 3 Months Immunizations Immunization Administration Dates Next Due DTaP 01/12/2005, 3,06/28/2001,04/28 [...] Moderna Covid-19 Vaccine 12+ 05/26/2021,11/26/19 21,10/04/2020 Novel [id number], all formulations 07/26/2009 Pneumococcal Conjugate PCV 13 [...] housing situation today? I have dalton ansari 08/22/[address] you li ve. Do you have problems with any of the following? None of the above 08/22/2024 Food Insecurity Answer Date Recorded Within the past 12 months, y ou worried that your food would run out before you got money to buy more: Never True 08/22/2024 Within the past 12 months,th e food you bought just didn't last and you didn't have enough money to get more: Never True Transportation Answer Date Recorded In the past 12 months, has l ack of transportation kept you from medical appts, meetings, work or from getting things needed for daily living? No 08/22/2024 Utilities Answer Date Recorded In the past 12 months, has t he electric, gas, oil or water company threatened to shut off services in your home? No 08/22/2024 Depression Answer Date Recorded Patient Health Questionnaire-2 Score 2 07/09/2023 Internet Access Answer Date Recorded Internet Access Q1 Yes 08/22/2024 Internet Access Q2 Not on file 08/22/2024 Comments No Sex and Gender Information Value Date Recorded Sex Assigned at Female 03/30/2022 10:24 AM EDT Legal Sex Female 10:24 AM EDT Gender Identity Female 03/30/2022 10:24 AM EDT Sexual Orientation Straight 03/30/2022 10 :24 AM EDT Last Filed Vital Signs Vital Sign Reading Time Taken Comments Blood Pressure 148/90 08/30/2024 10:38 AM EDT Pulse 80 08/30/2024 10:38 AM EDT Temperature 36.2 ??C (97.1 ??F) 08/30/2024 10:38 AM E DT Respiratory Rate 20 08/30/2024 10:38 AM EDT Oxygen Saturation 99% 04/07/2024 10:17 AM EST Inhaled Oxygen Concentration - - Weight 117 kg (257 lb) 08/30/2024 10:38 AM EDT Height 181.6 cm (5' 11.5 ) 08/30/2024 10:38 AM E DT Body Mass Index 35.34 08/30/2024 10:38 AM EDT Plan of Treatment Upcoming Encounters Date Type Department Care Team (Late st Contact Info) Description 11/27/2024 10:30 AM EDT Office Visit [facility] [address] [place] [address] Lynn Hinojosa FNP [address] [place] [address] 01/02/2025 9:15 AM EDT Office Visit [facility] [address] [place] [address] Anthony Salas MD [address] [place] [address] Health Maintenance Due Date Last Done Comments Disability Screening 2000 Alcohol/Substance Use Screening 2012 Meningococcal B Vaccine (1 of 2 - Standard) 2016 Chlamydia and Gonorrhea Screening 07/09/2024 07/09/2023 Depression Screening 07/09/2024 07/09/2023, 07/09/19 24 COVID-19 Vaccine ( season) 2025 05/26/2021, 11/25/2020, 10/04/2020 Postponed from 01/30/2024 (Patient Refused) Family Planning (PISQ) 04/09/2025 04/09/2024 Pap Smear 05/15/2025 05/15/2022 SDOH Screening 08/22/2025 08/22/2024 Tobacco Screening 08/30/2025 08/30/2024 DTaP/Tdap/Td Vaccines (8 - Td or Tdap) [...] Procedure Name Priority Date/Time Associated Diagnosis Comments AMB REFERRAL TO CARDIOLOGY Urgent 10/06/2024 Squeezing chest pain HEMATOXYLIN AND EOSIN STAIN Routine 09/21/2024 8:56 AM EDT HCG, QL, URINE Routine 09/21/2024 7:43 AM EDT HIV 1/2 ANTIGEN/ANTIBODY, FOURTH GENERATION W/RFL Routine [...] Recently Relevant to Health Maintenance Results * Referral to Cardiology (10/06/2024) Lynn Hinojosa [facility] OUTPATIENT REFERRAL ORDERABLES Final Result * Hematoxylin and Eosin Stain (09/21/2024 8:56 AM EDT) 09/21/2024 8:56 AM EDT 09/21/2024 9:35 AM EDT Narrative [facility] - 09/25/2024 2:52 PM EDT ----- ------- Name: Estrella Hooks ? Age/Sex: 23/F ? : 2000 Unit#: [id number] ?? Attend Dr: Juanita Fuentes MD ?Re09/21/24 ?Status: DEP SDC ? Location: HO.SSS ?Disch: ? ----- ------- SPEC : [id number] ? RECD: 09/21/24 ? STATUS: ??SOUT ? REQ NUM: [id number] ? ABDULKADIR: 09/21/24-855 ? SUBM DR: Juanita Fuentes MD ? ENTERED: ??09/21/24 ?SP TYPE: Surgical ? OTHR DR: Lynn Hinojosa SHOE DESIGNER ? ORDERED: ??HE Stain/18, Gross Micro L4/6, IHC, Special st. 2/2, H. pylori, AB/PAS/2 ? Diagnosis ?? A. ??Duodenum, biopsy: ??Duodenal mucosa within normal limits. ? B. ??Stomach, random, biopsy: ??Antral-type and oxyntic mucosa with moderate chronic ?? inactive inflammation; no Helicobacter organisms seen. ? C. ??Esophagus, lower, biopsy: ??Squamous epithelium within normal limits; no inflammation ?? seen. ? D. ??Esophagus, middle, biopsy: ??Squamous epithelium within normal limits; no inflammation ?? seen. ? E. ??Colon, right, biopsy: ??Colonic mucosa within normal limits. ? F. ??Colon, left, biopsy: ??Colonic mucosa within normal limits. ?Clinical History Pre-Op Dx: ??Diarrhea Post-Op Dx: Normal EGD, normal colon ?Microscopic Description A-F. ??Microscopic sections examined. ??No metaplastic changes are seen, supported by AB/PAS stains (A and B); no Helicobacter organisms are seen, supported by H. pylori immunostain (B). ? Material Received ?? A. Duodenum ?? B. Random gastric ?? C. Lower esophagus ?? D. Middle esophagus ?? E. Right side colon bx's ?? F. Left side colon bx's ? Gross Description Received in six parts. Part A: ??Received in formalin labeled ?duodenum? are 4 singh-pink irregular tissue fragments ranging from 0.2-0.25 cm, submitted in toto in a cassette labeled A. ? CONTINUED ON NEXT PAGE ----- ------- Name: Estrella Hooks ? Age/Sex: 23/F ? : 2000 Unit#: [id number] ?? Attend Dr: Juanita Fuentes MD ?Re09/21/24 ?Status: DEP SDC ? Location: HO.SSS ?Disch: ? ----- ------- SPEC : [id number] ? RECD: 09/21/24-934 ? STATUS: ??SOUT ? REQ NUM: [id number] ? ABDULKADIR: 09/21/24-855 ? SUBM DR: Juanita Fuentes MD ? ENTERED: ??09/21/24 ?SP TYPE: Surgical ? OTHR DR: Lynn HinojosaP ? ORDERED: ??HE Stain/18, Gross Micro L4/6, IHC, Special st. 2/2, H. pylori, AB/PAS/2 ? Gross Description ?(Continued) Part B: ??Received in formalin labeled ?random gastric? are 3 rg- white irregular and rectangular tissue fragments ranging from 0.15-0.45 cm, submitted in toto in a cassette labeled B. Part C: ??Received in formalin labeled ?lower esophagus? are 4 rg- white irregular and rectangular tissue fragments ranging from 0.2-0.35 cm, submitted in toto in a cassette labeled C. Part D: ??Received in formalin labeled ?middle esophagus? are 4 rg- white irregular tissue fragments ranging from 0.2-0.3 cm, submitted in toto in a cassette labeled D. Part E: ??Received in formalin labeled ?right side colon bx's? are 3 singh-pink irregular tissue fragments ranging from 0.2-0.3 cm, submitted in toto in a cassette labeled E. Part F: ??Received in formalin labeled ?left side colon bx's? are 4 singh-pink irregular tissue fragments ranging from 0.15-0.3 cm, submitted in toto in a cassette labeled F. ??CEDS Special studies ordered and performed: Immunostain for H. pylori on B; AB/PAS stains on A and B Copies To: ?? Lynn Hinojosa ?? [address] [facility] ?? [place] [address] ?? [phone] ?? Juanita Fuentes MD ?? [facility] ?? [address] ?? [place] [address] ?? [phone] ?? [email or web address] ----- ------- Signed (signature on file) Eze Lugo MD 09/25/24 5222 ? ----- ------- ? END OF REPORT ? Generic External Data Provider LAB BLOOD ORDERAB LES Final Result Performing Organization Address [facility] de Phone Number [facility] [address] [place] [phone] * HCG, Qualitative, Urine (09/21/2024 7:43 AM EDT) [facility] Urine NEGATIVE NEGATIVE [facility] Comment:This test was develo ped to detect early . Falsenegative results may occur after the 5th - 7th week ofpregnancy when using this test method. If clinicallyindicated, consider a serum hCG. 09/21/2024 7:43 AM EDT 09/21/2024 7:53 AM EDT Generic External Data Provider LAB URINE ORDERAB LES Final Result Performing Organization Address [facility] de Phone Number [facility] [address] [place] [phone] * HIV-1/2 Antigen and Antibodies, Fourth Generation, with Reflexes (10/11/2023 11:25 AM EDT) [facility] HIV AB/AG Nonreactive Nonreactive [facility] Comment:HIV-1 p24 Ag and/or HIV-1/HIV-2 Ab not detected.A test result that is nonreactive does not exclude thepossibility of exposure to or infection with HIV-1 and/orHIV-2. Nonreactive results in this assay for individualswith prior exposure to HIV-1 and/or HIV-2 may be due toantigen and antibody levels that are below the limit ofdetection of this assay.[employer] HIV Ag/Ab Combo assay result andsupplemental assay results should be interpreted inconjunction with the patient's clinical presentation,history and other laboratory results. If the results areinconsistent with clinical evidence, additional testing issuggested to confirm the result. Blood Venous blood specimen / Unknown 10/11/2023 11:25 AM EDT 10/11/2023 2:32 PM EDT Joycelyn Calvo MD LAB BLOOD ORDERABLES Final Re sult Performing Organization Address [facility] Co de Phone Number [facility] [address] [place] [phone] * SureSwab?? Advanced Vaginitis Plus, TMA (07/09/2023 10:31 AM EST) CTNG Ref Lab NOT DETECTED NOT DETECTED [facility] NG Ref Lab NOT DETECTED NOT DETECTED [facility] Comment:For additional infor mation, please refer tohttps://education.[employer]faq/VBA391(This link is being provided for information/educational purposes only.)THIS TEST WAS PERFORMED AT:[address] [place] [id number] ROJO MD SureSwab 9R) ADV Bacterial Vaginosis (BV), TMA NEGATIVE NEGATIVE [facility] Josette Species NOT DETECTED NOT DETECTED [facility] Josette glabrata NOT DETECTED NOT DETECTED [facility] Comment:Josette species C. a lbicans, C. tropicalis,C. parapsilosis, and/or C. dubliniensis can be detected,but not differentiated, in the Josette spp. result. Trichomonas vaginalis (TV), TMA NOT DETECTED NOT DETECTED [facility] Swab Vaginal structure / Unknown 07/09/2023 10:31 AM EST 07/09/2023 2:15 PM EST us Lynn [place] LAB BODY FLUIDS AND STOOLS ORD ERABLES Final Result Performing Organization Address [facility]/ZIP Co de Phone Number [facility] [address] [place] [phone] * Hepatitis C Viral RNA, Quantitative, Real-Time PCR (07/09/2023 10:31 AM EST) Hepatitis C Viral Load <15 NOT DETECTED NOT DETECTED IU/mL [facility] HCV Log PCR <1.18 NOT DETECTED NOT DETECTED Log IU/mL [facility] Comment:This test was perfor med using Real-Time Polymerase ChainReaction.Reportable Range: 15 IU/mL to 100,000,000 IU/mL(1.18 Log IU/mL to 8.00 Log IU/mL).The analytical performance characteristics of thisassay have been determined by [employer].The modifications have not been cleared or approved bythe FDA. This assay has been validated pursuant to theCLIA regulations and is used for clinical purposes.For more information on this test, go to:http://education.[employer]faq/BJI58o7(This link is being provided for informational/educational purposes only.)THIS TEST WAS PERFORMED AT:[address] [place] [id number] ROJO MD Blood 07/09/2023 10:3 1 AM EST 07/09/2023 2:15 PM EST Lynn Hinojosa SHOE DESIGNER LAB BLOOD ORDERABLES Final Res ult Performing Organization Address [facility]/ZIP Co de Phone Number [facility] [address] [place] [phone] * Pap Smear (05/15/2022 12:00 AM EST) Swab Historical Provider LAB CYTOLOGY ORDERABLES F inal Result Performing Organization Address [facility]/ZIP Co de Phone Number [facility] [address] [place] [phone] from Last 3 Months or Most Recently Relevant to Health Maintenance Insurance [facility] C3 Care Teams Yard Laborer Relationship Specialty Start Date End Date Lynn Hinojosa FNP [address] [place] [address] PCP - General Family Medicine 01/20/[address] [place] [address] Drive 3rd [place] [address] Gastroenterology 05/28/24
--- OUTSIDE RECORDS SUMMARY | 2024-10-18 14:11 | XMS_ITS | Encounter Summary ---
Author Organization [facility] Address [address] [place] [address] Phone Care Team Providers Care Circle Saw Operator Name Role Phone Elly Mayes MD Primary Care Provider [phone] Encounter Details Date Type Department Care Team (Late st Contact Info) Description 11/20/2009 Documentation [facility] [place] [facility] [address] [place], [place] [phone] Family Medicine, Physician [address] [place] [address] Social History Tobacco Use Types Packs/Day Years [...] on filedocumented in this encounter Care Teams Circle Saw Operator Relationship Specialty Start Date End Date Elly Mayes MD [address] [place] [address] [place] [address] PCP - General 01/08/17 09/09/22 documented as of this encounter
--- OUTSIDE RECORDS SUMMARY | 2024-10-18 14:11 | XMS_ITS | Data Portability ---
Author Organization [place] [facility], [facility] Address [address] [place] [phone] Assessment No assessment recorded. Plan of Treatment [...] Organization Details Recorded Time Recurrent acute tonsillitis [id number] Active 2024 MAIK OROZCO MD [address] [address], [place], [phone] [place] [facility] 5 11:21:26 Problem Notes None recorded. [...] Updated DateTime 06/05/2024 180.34 cm 30.7 kg/m2 93421.32 g Alfred Noonan [facility] 06/05/2024 11:07:42 Social History None recorded. [...] Disorder N Anesthesia Complications N Heart Attack ([place]) N Other Skin Condition Y Diabetes N [...] SNOMED-CT Code Diagnosis ICD10 Code Diagnosis Note [id number] MAIK SIM MD [facility] of [address] [phone] 06/05/2024 10:49:56 06/05/2024 11:23:18 Recurrent acute tonsillitis 323599806 J03.91 Patient reports 2-3 episodes of tonsilliti [...] Recorded Advance Directives Directive None Recorded Payers Insurance Date Sequence Insurance Name Policy Number Policy Stone Covered Member ID Stone Member ID Guarantor Name 06/02/2024 1 MEDICAID-PR: [facility] [id number] [facility] Notes Date Note Type Note Provider Name and Address Organization Details Recorded Time 06/05/2024 text/html Had illness last December with tonsil swelling and stones. Had some ear aches. 2-3 episodes per year and in between she is fineNo issues for 5 months MAIK MCKEON MD [address] [place] [address], [phone], [place] [facility] 06/05/2024 11:22:27 OBGyn Episode No OBEpisode recorded.
--- OUTSIDE RECORDS SUMMARY | 2024-10-18 14:11 | XMS_ITS | Encounter Summary ---
Author Organization [employer] Address [address] [facility] 7t [place] [address] Care Team Providers Care Furniture Restorer Name Role Phone Lynn Hinojosa Primary Care Provider [phone] August Reason for Visit * Reason Onset Date Comments Appointment Request 08/21/2022 Encounter Details Date Type Department Care Team (Late st Contact Info) Description 08/21/2022 Telephone [facility] [address] [place] [address] Lynn Hinojosa FNP [address] [place], [place] [phone] Appointment Request Social History Tobacco Use Types [...] B #2 ) Please contact pt at [phone] documented in this encounter Plan of Treatment Upcoming Encounters Date Type Department Care Team (Late st Contact Info) Description 11/27/2024 10:30 AM EDT Office Visit [facility] [address] [place] [address] Lynn Hinojosa FNP [address] [place] [address] 01/02/2025 9:15 AM EDT Office Visit [facility] [address] [place] [address] Anthony Salas MD [address] [place], [place] [phone] documented as of this encounter Visit Diagnoses Not on filedocumented in this encounter Care Teams Furniture Restorer Relationship Specialty Start Date End Date Lynn Hinojosa FNP [address] [place] [address] PCP - General Family Medicine 01/20/22August [address] [place] [address] 3rd [place] [address] Gastroenterology 05/28/24 documented as of this encounter
--- OUTSIDE RECORDS SUMMARY | 2024-10-18 14:11 | XMS_ITS | Encounter Summary ---
Author Organization [facility] Address [address] [place] [address] Phone Care Team Providers Care Manufacturing Quality Manager Name Role Phone Elly Mayes MD Primary Care Provider [phone] Encounter Details Date Type Department Care Team (Late st Contact Info) Description 03/29/2012 Documentation [facility] [place] Medicine [address] [place], [place] [phone] Family Medicine, Physician [address] [place] [address] Social History Tobacco Use Types Packs/Day Years [...] on filedocumented in this encounter Care Teams Manufacturing Quality Manager Relationship Specialty Start Date End Date Elly Mayes MD [address] [place] [address] [place] [address] PCP - General 01/08/17 09/09/22 documented as of this encounter
--- OUTSIDE RECORDS SUMMARY | 2024-10-18 14:11 | XMS_ITS | Clinical Summary ---
Author Organization [facility] Address [address] [place] [address] Care Team Providers Care Occupational Health And Safety Officer Name Role Phone Edith Wells Primary Care Provider Social History Tobacco Use Types Packs/Day Years [...] age to complete this topic Care Teams Occupational Health And Safety Officer Relationship Specialty Start Date End Date Edith Wells [address] [facility] [place] [address] PCP - General Pediatrics 07/22/20
--- OUTSIDE RECORDS SUMMARY | 2024-10-18 14:11 | XMS_ITS | Encounter Summary ---
Author Organization [facility] Address [address] [place] [address] Phone Care Team Providers Care Wood Calker Name Role Phone Elly Mayes MD Primary Care Provider [phone] Encounter Details Date Type Department Care Team (Late st Contact Info) Description 11/28/2012 Documentation [facility] [place] [address] [place], [place] [phone] Family Medicine, Physician [address] [place] [address] Social History Tobacco Use Types Packs/Day Years [...] on filedocumented in this encounter Care Teams Wood Calker Relationship Specialty Start Date End Date Elly Mayes MD [address] [place] [address] [place] [address] PCP - General 01/08/17 09/09/22 documented as of this encounter
--- OUTSIDE RECORDS SUMMARY | 2024-10-18 14:11 | XMS_ITS | Encounter Summary ---
Author Organization [employer] Address [address] [facility] 7t [place] [address] Care Team Providers Care Dogman/Woman Name Role Phone Lynn Hinojosa Primary Care Provider [phone] August Encounter Details Date Type Department Care Team (Late st Contact Info) Description 06/23/2022 Orders Only [facility] MED[facility]INE [address] [place] [address] Lynn Hinojosa FNP [address] [place], [place] [phone] Social History Tobacco Use Types Packs/Day Years [...] as of this encounter Plan of Treatment Upcoming Encounters Date Type Department Care Team (Late st Contact Info) Description 11/27/2024 10:30 AM EDT Office Visit [facility] [address] [place] [address] Lynn Hinojosa FNP [address] [place] [address] 01/02/2025 9:15 AM EDT Office Visit [facility] [address] [place] [address] Anthony Salas MD [address] [place], [place] [phone] documented as of this encounter Visit Diagnoses Not on filedocumented in this encounter Care Teams Dogman/Woman Relationship Specialty Start Date End Date Lynn Hinojosa FNP [address] [place] [address] PCP - General Family Medicine 01/20/22August [address] [place] [address] Drive 3rd [place] [address] Gastroenterology 05/28/24 documented as of this encounter
--- OUTSIDE RECORDS SUMMARY | 2024-10-18 14:11 | XMS_ITS | Encounter Summary ---
Author Organization [facility] Address [address] [place] [address] Phone Care Team Providers Care Director Of Analytical Development Name Role Phone Elly Mayes MD Primary Care Provider [phone] Encounter Details Date Type Department Care Team (Late st Contact Info) Description 04/11/2012 Documentation [facility] Family Medicine [address] [place], [place] [phone] Family Medicine, Physician [address] [place] [address] Social History Tobacco Use Types Packs/Day Years [...] in this encounter Care Teams Director Of Analytical Development Relationship Specialty Start Date End Date Elly Mayes MD [address] [place] [address] [place] [address] PCP - General 01/08/17 09/09/22 documented as of this encounter
--- OUTSIDE RECORDS SUMMARY | 2024-10-18 14:11 | XMS_ITS | Encounter Summary ---
Author Organization [facility] Address [address] [place] [address] Phone Care Team Providers Care Blind Installer Name Role Phone Elly Mayes MD Primary Care Provider [phone] Encounter Details Date Type Department Care Team (Late st Contact Info) Description 04/08/2012 Documentation [facility] [place] Family Medicine [address] [place], [place] [phone] Family Medicine, Physician [address] [place] [address] Social History Tobacco Use Types Packs/Day Years [...] on filedocumented in this encounter Care Teams Blind Installer Relationship Specialty Start Date End Date Elly Mayes MD [address] [place] [address] [place] [address] PCP - General 01/08/17 09/09/22 documented as of this encounter
--- OUTSIDE RECORDS SUMMARY | 2024-10-18 14:11 | XMS_ITS | Encounter Summary ---
Author Organization [facility] Address [address] [place] [address] Phone Care Team Providers Care Snow Removing Supervisor Name Role Phone Elyl Mayes MD Primary Care Provider [phone] Encounter Details Date Type Department Care Team (Late st Contact Info) Description 11/17/2012 Documentation [facility] [place] [address] [place], [place] [phone] Family Medicine, Physician [address] [place] [address] Social History Tobacco Use Types Packs/Day Years [...] on filedocumented in this encounter Care Teams Snow Removing Supervisor Relationship Specialty Start Date End Date Elly Mayes MD [address] [place] [address] [place] [address] PCP - General 01/08/17 09/09/22 documented as of this encounter
--- OUTSIDE RECORDS SUMMARY | 2024-10-18 14:11 | XMS_ITS | Encounter Summary ---
Author Organization [facility] Address [address] [place] [address] Phone Care Team Providers Care Pulverizer Tender Name Role Phone Elly Mayes MD Primary Care Provider [phone] Encounter Details Date Type Department Care Team (Late st Contact Info) Description 06/06/2012 Documentation [facility] [place] Family Medicine [address] [place], [place] [phone] Family Medicine, Physician [address] [place] [address] Social History Tobacco Use Types Packs/Day Years [...] on filedocumented in this encounter Care Teams Pulverizer Tender Relationship Specialty Start Date End Date Elly Mayes MD [address] [place] [address] [place] [address] PCP - General 01/08/17 09/09/22 documented as of this encounter
--- OUTSIDE RECORDS SUMMARY | 2024-10-18 14:11 | XMS_ITS | Encounter Summary ---
Author Organization [facility] Address [address] [place] [address] Phone Care Team Providers Care Parboiler Name Role Phone Elly Mayes MD Primary Care Provider [phone] Encounter Details Date Type Department Care Team (Late st Contact Info) Description 07/21/2012 Documentation [facility] [place] [address] [place], [place] [phone] Family Medicine, Physician [address] [place] [address] Social History Tobacco Use Types Packs/Day Years [...] on filedocumented in this encounter Care Teams Parboiler Relationship Specialty Start Date End Date Elly Mayes MD [address] [place] [address] [place] [address] PCP - General 01/08/17 09/09/22 documented as of this encounter
--- OUTSIDE RECORDS SUMMARY | 2024-10-18 14:12 | XMS_ITS | Encounter Summary ---
Author Organization [employer] Address [address] [place] [address] 7 [place] [address] Care Team Providers Care Automated Manufacturing Instructor Name Role Phone Lynn Hinojosa Primary Care Provider [phone] August Reason for Visit * Reason Comments Med Refill Encounter Details Date Type Department Care Team ([facility] st Contact Info) Description 09/23/2023 Refill [facility] MED & PEDS [address] [place], [place] [phone] Lynn Hinojosa FNP [address] [place] [address] Social History Tobacco Use Types Packs/Day Years [...] Description 11/27/2024 10:30 AM EDT Office Visit [facility] & [facility]EDS [address] [place] [address] Lynn Hinojosa FNP [address] [place] [address] 01/02/2025 9:15 AM EDT Office Visit [facility] MED & PEDS [address] [place] [address] Anthony Salas MD 505 [place] [address] documented as of this encounter Visit Diagnoses Not on filedocumented in this encounter Additional Health Concerns Assessment Noted Time PHQ-9 Depression Total Score: 5 07/09/19 24 9:39 AM EST documented as of this encounter Care Teams Automated Manufacturing Instructor Relationship Specialty Start Date End Date Lynn Hinojosa FNP [address] [place] [address] PCP - General Family Medicine 01/20/22 Tadeo August [address] [place] [address] Drive 3rd [place] [address] Gastroenterology 05/28/24 documented as of this encounter
--- OUTSIDE RECORDS SUMMARY | 2024-10-18 14:12 | XMS_ITS | Clinical Summary ---
Author Organization [facility] Address [address] [place] [address] Phone Care Team Providers Care Envelope Patternmaker Name Role Phone Unavailable Primary Care Provider [...] Diabetes mellitus, No family history of Sudden /[place] under age 55, Family history of Cancer, [...]
--- OUTSIDE RECORDS SUMMARY | 2024-10-18 14:12 | XMS_ITS | Clinical Summary ---
Author Organization [facility] Address [address] [place] [address] Care Team Providers Care Rn Admission Name Role Phone Edith Wells NP Primary Care Provider Social History Tobacco Use [...] (1 - 3-dose series) 12/07/2015 Meningococcal B Vaccine (1 o f 2 - Standard) 2016 DTaP,Tdap,and Td Vaccines (1 - Tdap) 12/07/2019 Hepatitis B Vaccines (1 of 3 - 19+ 3-dose series) 12/07/2019 Cervical Cancer Screening: P ap Smear 2021 Depression Screening 05/03/2022 HIV Screening 05/03/2022 Hepatitis C Screening 05/03/2022 Social Influencers of Health Screening 05/03/2022 Influenza Vaccine (Season Ended) 2025 HIB Vaccines Aged Out No longer eligi [...] age to complete this topic Care Teams Rn Admission Relationship Specialty Start Date End Date Edith Wells NP [facility] [address] [place] [address] PCP - General Pediatrics 07/22/20
--- OUTSIDE RECORDS SUMMARY | 2024-10-18 14:12 | XMS_ITS | Encounter Summary ---
Author Organization [employer] Address [address] [place] [address] 7 [place] [address] Care Team Providers Care Purchasing Manager Name Role Phone Lynn Hinojosa SERINA Primary Care Provider [phone] August Unavailable Encounter Details Date Type Department Care Team (Late st Contact Info) Description 05/12/2022 Abstract [facility] [address] [place] [address] Provider, MD Robert Social History Tobacco Use [...] AM EST documented as of this encounter Functional Status * Over the past 2 weeks, how often have you been bothered by any of the following problems? Question Answer Date of Assessment Author Patient Health Questionnaire-2 Score 2 04/30 10:00 AM EST Melinda Ramirez MA * Over the past 2 weeks, how often have you been bothered by any of the following problems? Question Answer Date of Assessment Author Little interest or pleasure in doing things Several days 05/15/2022 10:00 AM Melinda Marina M A Feeling down, depressed, or hopeless Several days 05/15/2022 10:00 AM Melinda Marina M A Trouble falling or staying asleep, or sleeping too much Several days 05/15/2022 10:00 AM Melinda Marina MA Feeling tired or having nelia le energy Several days 05/15/2022 10:00 AM Melinda Marina M A Feeling bad about yourself - or that you are a failure or have let yourself or your family down Not at all 05/15/2022 10:00 AM Melinda Marina M A Trouble concentrating on things, such as reading the newspaper or watching television Not at all 05/15/2022 10:00 AM Melinda Marina M A Moving or speaking so slowly that other people could have noticed? Or the opposite - being so fidgety or restless that you have been moving around a lot more than usual. Not at all 05/15/2022 10:00 AM Melinda Marina MA Thoughts that you would be better off or hurting yourself in some way Not at all 05/15/2022 10:00 AM Melinda Marina MA documented as of this encounter Plan of Treatment Upcoming Encounters Date Type Department Care Team (Late st Contact Info) Description 11/27/2024 10:30 AM EDT Office Visit [facility] MED & PEDS [address] [place] [address] Lynn Hinojosa FNP [address] [place] [address] 01/02/2025 9:15 AM EDT Office Visit [facility] MED & PEDS [address] [place] [address] Anthony Salas MD [address] [place] [address] documented as of this encounter Visit Diagnoses Not on filedocumented in this encounter Care Teams Purchasing Manager Relationship Specialty Start Date End Date Lynn Hinojosa FNP [address] [place] [address] PCP - General Family Medicine 01/20/[address] [place] [address] 3rd [place] [address] Gastroenterology 05/28/24 documented as of this encounter
--- OUTSIDE RECORDS SUMMARY | 2024-10-18 14:12 | XMS_ITS | Encounter Summary ---
Author Organization [facility] Address [address] [place] [address] Phone Care Team Providers Care Pediatric Nephrologist Name Role Phone Elly Mayes MD Primary Care Provider [phone] Encounter Details Date Type Department Care Team (Late st Contact Info) Description 01/14/2017 Conversion Encounter [facility] - [address] [address] Social History Tobacco Use Types Packs/Day Years [...] on filedocumented in this encounter Care Teams Pediatric Nephrologist Relationship Specialty Start Date End Date Elly Mayes MD [address] [place] [address] PCP - General 01/08/17 09/09/22 documented as of this encounter
--- OUTSIDE RECORDS SUMMARY | 2024-10-18 14:12 | XMS_ITS | Encounter Summary ---
Author Organization [employer] Address [address] [facility] 7 [place] [address] Care Team Providers Care Hydraulic Modeling Engineer Name Role Phone Lynn Hinojosa ASSOCIATE FINANCIAL PLANNER Primary Care Provider [phone] August Unavailable Encounter Details Date Type Department Care Team (Late st Contact Info) Description 05/14/2022 Orders Only [facility] MEDICINE [address] [place] [address] Sofiya Garcia, CARMEN Social History Tobacco Use Types Packs/Day Years [...] Description 11/27/2024 10:30 AM EDT Office Visit [facility] MED & PEDS [address] [place] [address] Lynn Hinojosa FNP 505 [place] [address] 01/02/2025 9:15 AM EDT Office Visit [facility] MED & PEDS [address] [place] [address] Anthony Salas MD [address] [place] [address] documented as of this encounter Visit Diagnoses Not on filedocumented in this encounter Care Teams Hydraulic Modeling Engineer Relationship Specialty Start Date End Date Lynn Hinojosa FNP [address] [place] [address] PCP - General Family Medicine 01/20/22August [address] [place] [address] 3rd [place] [address] Gastroenterology 05/28/24 documented as of this encounter
--- OUTSIDE RECORDS SUMMARY | 2024-10-18 14:12 | XMS_ITS | Encounter Summary ---
Author Organization [facility] Address [address] [place] [address] Phone Care Team Providers Care Rubber Thread Spooler Name Role Phone Elly Mayes MD Primary Care Provider [phone] Encounter Details Date Type Department Care Team (Late st Contact Info) Description 07/03/2013 Documentation [facility] [place] Family Medicine [address] [place], [place] [phone] Family Medicine, Physician [address] [place] [address] Social History Tobacco Use Types Packs/Day Years [...] on filedocumented in this encounter Care Teams Rubber Thread Spooler Relationship Specialty Start Date End Date Elly Mayes MD [address] [place] [address] [place] [address] PCP - General 01/08/17 09/09/22 documented as of this encounter
== END 2024-10-18 14:16 | disposition home or self-care (01) ==
PROVIDERS: PCP Registered Nurse; Visit Provider Nurse Practitioner
DX: R19.7 Diarrhea, unspecified (principal); K21.9 Gastro-esophageal reflux disease without esophagitis; R10.13 Epigastric pain
CPT/HCPCS: 99213

== ENCOUNTER → 2024-10-18 13:42 | Outpatient (BNVA) | payer MEDICAID, SELFPAY | PROVIDERS: PCP Registered Nurse; Visit Provider Nurse Practitioner | DX: R19.7 Diarrhea, unspecified (principal); K21.9 Gastro-esophageal reflux disease without esophagitis; R10.13 Epigastric pain | CPT/HCPCS: 99212 ==

== ENCOUNTER 2025-01-23 19:17 | Outpatient (REF) | payer MEDICAID, SELFPAY ==
--- OUTSIDE RECORDS SUMMARY | 2025-01-23 10:00 | XMS_ITS | Encounter Summary ---
Author Organization [employer] Address [address] [facility] 7 [place] [address] Care Team Providers Care Intramural Director Name Role Phone Lynn Hinojosa MANAGER INVENTORY MANAGEMENT Primary Care Provider [phone] August Reason for Visit * Reason Comments Cervical Cancer Screening Encounter Details Date Type Department Care Team (Latest Contact Info) Description 01/23/2025 10:00 AM EDT Procedure Visit [facility] MED & PEDS [address] [place], [place] [phone] Joycelyn Calvo MD [address] [place], [place] [phone] Cervical cancer screening (Primary Dx) Social History Tobacco Use Types Packs/Day Years [...] Answer Date Recorded Patient Health Questionnaire-9 Score 8 11/27/2024 Patient Health Questionnaire-9 Score 8 11/27/2024 Last PHQ-9: Questionnaire Data Not on file 0 11/27/2024 Housing Stability Answer Date Recorded What is your housing situation today? I have [place] sing 08/22/[address] you li [...] Answer Date Recorded Patient Health Questionnaire-2 Score 4 11/27/2024 Internet Access Answer Date Recorded Internet Access Q1 Yes 08/22/2024 Internet Access Q2 Not on file 08/22/2024 Comments No Sex and Gender Information Value Date Recorded Sex Assigned at Female 03/30/2022 10:24 AM EDT Legal Sex Female 10:24 AM EDT Gender Identity Female 03/30/2022 10:24 AM EDT Sexual Orientation Straight 03/30/2022 10 :24 AM EDT documented as of this encounter Last Filed Vital Signs Vital Sign Reading Time Taken Comments Blood Pressure 132/69 01/23/2025 9:55 AM EDT Pulse 80 01/23/2025 9:55 AM EDT Temperature 36.6 C (97.8 F) 01/23/2025 9:55 AM EDT Respiratory Rate 20 01/23/2025 9:55 AM EDT Oxygen Saturation 98% 01/23/2025 9:55 AM EDT Inhaled Oxygen Concentration - - Weight 120 kg (263 lb 12.8 oz) 01/23/2025 9:55 A M EDT Height 180.3 cm (5' 11 ) 01/23/2025 9:55 AM EDT Body Mass Index 36.79 01/23/2025 9:55 AM EDT documented in this encounter Progress Notes * Joycelyn Calvo MD - 01/23/2025 10:00 AM EDT Images from the original note were not included. Subjective Patient ID: Estrella Hooks is a 24 y.o. female who presents for Cervical Cancer Screening. 24 y.o. female here for annual well woman preventive exam. LMP: No LMP recorded. Sexual activity: Social History Substance and Sexual Activity Sexual activity: Never intention: BC method: Smoking hx: Tobacco Use: Low Risk (01/23/2025) Tobacco Smoking Tobacco Use: Never Smokeless Tobacco Use: Never Passive Exposure: Never Alcohol use hx: Social History Substance and Sexual Activity Alcohol use: Yes Comment: social use OBHx: The patient has never been . IPV: Denies IPV Reviewed family hx Review of patient's family history indicates: Problem: Uterine cancer Relation: Mother Name: Age of Onset: 45 Comment: hysterectomy Problem: Other (hidradenitis supperativa) Relation: Mother Name: Age of Onset: (Not Specified) Problem: Hypertension Relation: Father Name: Age of Onset: (Not Specified) Problem: Hypertension Relation: Brother Name: Age of Onset: (Not Specified) Problem: Breast cancer Relation: Mother's Sister Name: Age of Onset: 42 Problem: Other (sciatica) Relation: Mother's Sister Name: Age of Onset: (Not Specified) Problem: Colon cancer Relation: Mother's Brother Name: Age of Onset: 40 Problem: Colon cancer Relation: Maternal Grandmother Name: Age of Onset: 30 Problem: Diabetes type I Relation: Maternal Grandmother Name: Age of Onset: (Not Specified) Health Maintenance: No results found for: HMPAP , HMMAMMO , HMCOLON Review of Systems Constitutional: Negative for appetite change, fatigue and fever. HENT: Negative for congestion, postnasal drip and rhinorrhea. Eyes: Negative for discharge and redness. Respiratory: Negative for apnea, cough, chest tightness and shortness of breath. Cardiovascular: Negative for chest pain. Gastrointestinal: Negative for abdominal pain. Endocrine: Negative for polyphagia. Genitourinary: Negative for difficulty urinating, dysuria and urgency. Musculoskeletal: Negative for arthralgias. Neurological: Negative for dizziness, light-headedness, numbness and headaches. Hematological: Negative for adenopathy. Does not bruise/bleed easily. Objective Visit Vitals BP 132/69 Pulse 80 Temp 97.8 ??F (36.6 ??C) (Oral) Resp 20 Ht 5' 11 (1.803 m) Wt 263 lb 12.8 oz (120 kg) SpO2 98% BMI 36.79 kg/m?? OB Status Having periods Smoking Status Never BSA 2.45 m?? Physical Exam Vitals reviewed. Exam conducted with a community health program representative present. HENT: Head: Normocephalic and atraumatic. Pulmonary: Effort: Pulmonary effort is normal. Chest: Chest wall: No deformity, tenderness or crepitus. Breasts: Breasts are symmetrical. Right: Normal. No inverted nipple, mass, nipple discharge, skin change or tenderness. Left: Normal. No inverted nipple, mass, nipple discharge, skin change or tenderness. Genitourinary: Urethra: No prolapse. Vagina: Normal. Cervix: Normal. Rectum: Normal. Comments: Ectropion Musculoskeletal: Cervical back: Normal range of motion. Lymphadenopathy: Upper Body: Right upper body: No supraclavicular, axillary or pectoral adenopathy. Left upper body: No supraclavicular, axillary or pectoral adenopathy. Psychiatric: Mood and Affect: Mood normal. Assessment/Plan Problem List Items Addressed This Visit Cervical cancer screening - Primary 24 y.o. here for cervical cancer screening following NIH OAR Adult and Adolescent OI Guidelines, given she is immunocompromised on biologics. Cervical Pap: If normal cytology and hr-HPV, repeat cytology yearly x 3, and then q3y Relevant Orders Pap Smear documented in this encounter Miscellaneous Notes * Assessment & Plan Note - Joycelyn Calvo MD - 01/23/2025 10:18 AM EDT Associated Problem(s): Cervical cancer screening 24 y.o. here for cervical cancer screening following NIH OAR Adult and Adolescent OI Guidelines, given she is immunocompromised on biologics. Cervical Pap: If normal cytology and hr-HPV, repeat cytology yearly x 3, and then q3y documented in this encounter Plan of Treatment Upcoming Encounters Date Type Department Care Team (Late st Contact Info) Description 03/26/2025 9:00 AM EDT Office Visit [facility] MED & PEDS [address] [place] [address] Lynn Hinojosa FNP [address] [place] [address] Scheduled Orders Name Type Priority Associated Diagnoses Orde r Schedule Pap Smear Pathology and Cytology Routine Cervical cancer screening Ordered: 01/23/2025 documented as of this encounter Visit Diagnoses Diagnosis Cervical cancer screening- Primary Screening for malignant neoplasm of the cervix documented in this encounter Additional Health Concerns Assessment Noted Time PHQ-9 Depression Total Score: 8 11/28/19 25 11:38 AM EDT documented as of this encounter Care Teams Intramural Director Relationship Specialty Start Date End Date Lynn Hinojosa FNP [address] [place] [address] PCP - General Family Medicine 01/20/[address] [place] [address] 3rd [place] [address] Gastroenterology 05/28/24 documented as of this encounter
--- OUTSIDE RECORDS SUMMARY | 2025-01-23 19:20 | XMS_ITS | Encounter Summary ---
Author Organization [facility] Address [address] [place] [address] Phone Care Team Providers Care Welt Trimming Machine Operator Name Role Phone Elly Mayes MD Primary Care Provider [phone] Encounter Details Date Type Department Care Team (Late st Contact Info) Description 07/03/[address] [facility] [place] [address] [place], [place] [phone] Family Medicine, Physician [address] [place] [address] Social History Tobacco Use Types Packs/Day Years [...] on filedocumented in this encounter Care Teams Welt Trimming Machine Operator Relationship Specialty Start Date End Date Elly Mayes MD [address] [place] [address] [place] [address] PCP - General 01/08/17 09/09/22 documented as of this encounter
--- OUTSIDE RECORDS SUMMARY | 2025-01-23 19:20 | XMS_ITS | Encounter Summary ---
Author Organization [employer] Address [address] [facility] 7t [place] [address] Care Team Providers Care School Services Officer Name Role Phone Lynn Hinojosa Primary Care Provider [phone] August Encounter Details Date Type Department Care Team (Late st Contact Info) Description 06/23/2022 Orders Only [facility] MEDICINE [address] [place] [address] Lynn Hinojosa FNP [address] [place], [place] [phone] Social History Tobacco Use Types Packs/Day Years [...] Description 03/26/2025 9:00 AM EDT Office Visit [facility] CHC MED & PEDS [address] [place] [address] Lynn Hinojosa FNP 505 [place] [address] documented as of this encounter Visit Diagnoses Not on filedocumented in this encounter Care Teams School Services Officer Relationship Specialty Start Date End Date Lynn Hinojosa FNP [address] [place] [address] PCP - General Family Medicine 01/20/22August [address] [place] [address] Drive 3rd [place] [address] Gastroenterology 05/28/24 documented as of this encounter
--- OUTSIDE RECORDS SUMMARY | 2025-01-23 19:20 | XMS_ITS | Encounter Summary ---
Author Organization [employer] Address [address] [facility] 7t [place] [address] Care Team Providers Care Cloud Developer Name Role Phone Lynn Hinojosa SERINA Primary Care Provider [phone] August Encounter Details Date Type Department Care Team (Latest Contact Info) Description 01/23/2025 Travel Social History Tobacco Use Types Packs/Day Years [...] Description 03/26/2025 9:00 AM EDT Office Visit [facility] MED & PEDS [address] [place] [address] Lynn Hinojosa FNP 505 [place] [address] documented as of this encounter Visit Diagnoses Not on filedocumented in this encounter Additional Health Concerns Assessment Noted Time PHQ-9 Depression Total Score: 8 11/28/19 25 11:38 AM EDT documented as of this encounter Care Teams Cloud Developer Relationship Specialty Start Date End Date Lynn Hinojosa FNP [address] [place] [address] PCP - General Family Medicine 01/20/[address] [place] [address] Drive 3rd [place] [address] Gastroenterology 05/28/24 documented as of this encounter
--- OUTSIDE RECORDS SUMMARY | 2025-01-23 19:20 | XMS_ITS | Encounter Summary ---
Author Organization [facility] Address [address] [place] [address] Phone Care Team Providers Care Staff Educator Name Role Phone Elly Mayes MD Primary Care Provider [phone] Encounter Details Date Type Department Care Team (Late st Contact Info) Description 11/17/2012 Documentation [facility] [place] [address] [place], [place] [phone] Family Medicine, Physician [address] [place] [address] Social History Tobacco Use Types Packs/Day Years [...] on filedocumented in this encounter Care Teams Staff Educator Relationship Specialty Start Date End Date Elly Mayes MD [address] [place] [address] [place] [address] PCP - General 01/08/17 09/09/22 documented as of this encounter
--- OUTSIDE RECORDS SUMMARY | 2025-01-23 19:20 | XMS_ITS | Clinical Summary ---
Author Organization [employer] Address [address] [facility] 7t [place] [address] Care Team Providers Care Road Boss Name Role Phone Lynn Hinojosa SERINA Primary Care Provider [phone] August Allergies No known active allergies Medications * This document contains information received from the source organization and may not represent a complete record from that organization. hydrocortisone 2.5 % cream APPLY TOPICALLY TO THE CHEST TWICE DAILY NEEDED FOR FLARES 022 Active cetirizine (ZyrTEC) 10 MG tabletIndication s:Nasal turbinate hypertrophy Take 1 tablet (10 mg) by mouth if needed at bedtime for allergies. 90 tablet 2 023 Active albuterol 108 (90 Base) MCG/ACT inhaler Inhale 2 puffs every 4 (four) hours if needed for wheezing. 18 g 3 023 Active Acetaminophen 500 MG capsule Take 1-2 capsules (500-1,000 mg) by mouth every 8 (eight) hours. 100 capsule 2 024 Active Drospirenone (Slynd) 4 MG tabletIndication s:Iron deficiency anemia, unspecified iron deficiency anemia type Take 1 tablet by mouth Once per day. 90 tablet 3 024 Active triamcinolone (Kenalog) 0.025 % creamIndications :Dermatitis Apply topically 2 times daily. Use for up to 1-2 weeks. 15 g 2 025 Active sertraline (Zoloft) 50 MG tabletIndication s:Recurrent major depressive disorder, in remission (CMS/HCC) Take 1 tablet (50 mg) by mouth Once per day. 90 tablet 1 025 Active cholecalciferol (Vitamin D-3) 50 MCG (2000 UT) capsuleIndicatio ns:Vitamin D insufficiency Take 1 capsule (50 mcg) by mouth Once per day. 90 capsule 3 025 Active ferrous gluconate (Fergon) 324 (38 Fe) MG tabletIndication s:Iron deficiency anemia, unspecified iron deficiency anemia type Take 1 pill every Wednesday, Wednesday, and Wednesday. Take with a full glass of water or Vit C containing juice, and ideally 1 hour before a meal or 2 hours after a meal 36 tablet 025 Active rizatriptan (Maxalt) 5 MG tabletIndication s:Migraine without aura and without status migrainosus, not intractable Take 1 tablet (5 mg) by mouth 1 (one) time if needed for migraine. May repeat in 2 hours if unresolved. Do not exceed 20 mg in 24 hours. 9 tablet 2 025 Active Adalimumab 80 MG/0.8ML & 40MG/0.4ML Auto-injector KitIndications:H idradenitis suppurativa Inject 80 mg under the skin every 14 (fourteen) days. 2 each 3 025 Active minocycline 50 MG capsuleIndicatio ns:Acne vulgaris Take 1 capsule (50 mg) by mouth 2 times daily. 60 capsule 2 025 2024 Active Humira Pen 80 MG/0.8ML Pen-injector Kit pen-injector INJECT 1 PEN SUBCUTANEOUS EVERY 14 DAYS 022 2024 Discontinued(R eorder (will not trigger notification to Pharmacy)) Active Problems Problem Noted Date Diagnosed Date Cervical cancer screening 01/23/2025 Assessment & Plan (01/23/2025 10:18 AM EDT): 24 y.o. here for cervical cancer screening following NIH OAR Adult and Adolescent OI Guidelines, given she is immunocompromised on biologics. Cervical Pap: If normal cytology and hr-HPV, repeat cytology yearly x 3, and then q3y Epigastric pain 11/28/2024 Assessment & Plan (11/28/2024 7:46 AM EDT): Associated with postprandial diarrhea and dyspepsia. Following with [facility] Gastro GI consult May 2024: RAST panel did not show any significant food allergies EGD/COLONOSCOPY 09/21/24 without remarkable finding. Path results from stomach biopsy demonstrated Antral-type and oxyntic mucosa with moderate chronic inactive inflammation. Trial of sucralfate caused worsening of symptoms, DC Currently continues with cholestyramine Avoid greasy/triggering food Palpitations 11/28/2024 Assessment & Plan (11/28/2024 7:42 AM EDT): Hx palpitations, chest pressure in left anterior precordium, and epigastric pain Cards consult 10/06/24 ([facility]). Suspected likely 2/2 MSK etiology with macromastia. Plan to check holter, echo, and labs. Reports that she completed Holter and results were reassuring. Elevated blood pressure reading 11/28/2024 Assessment & Plan (11/28/2024 7:50 AM EDT): - BP elevated today in office - Check home BP readings and f/up if above goal < 140/90 mmHg Recurrent acute tonsillitis 06/05/2024 Overview (11/28/2024): Consult with [facility] - Dr. Isaacs May 2024. Rec consideration of streptococcal probiotics, avoid alcohol based mouth wash. Not indicated for consideration of surgery at this time. F/up PRN. Menorrhagia with regular cycle 04/09/2024 Overview (04/09/2024): [...] recommended. Nabothian cysts seen on the cervix. POSITION DESCRIPTION MANAGER consult July 2022 at [facility] Hx of migraine +/- aura. [...] Following with [facility] Heme/Onc Assessment & Plan (11/28/2024 7:39 AM EDT): -Noted on labs September 2023, initiated on iron supplement -Labs in October 2023 demonstrated improvement in ferritin, but decrease in H/H -Consider 2/2 HMB -Cont with OCPs and iron supplement -EGD/colonoscopy August 2024 wnl Assessment & Plan (05/28/2024 5:38 PM EST): [...] in ferritin, but decrease in H/H -Consider 07/02 HMB -Given decline in H/H despite iron and Vit D repletion, referral to Heme/Onc placed for further eval Assessment & Plan (10/23/2023 7:19 AM EDT): -Noted on labs September 2023, initiated on iron supplement -Plan to recheck labs 4 weeks after initiating supplementation Lymphadenopathy of right cervical region 024 Assessment & Plan (11/24/2023 6:14 PM EDT): -Identified during ED visit at [facility] 10/04/23 -US completed September 2023 with impression of 1.2cm complex lesion in area of concern. -Pt has been tx with abx w/o improvement -Referral to ENT for further eval and tx Assessment & Plan (10/11/2023 11:26 AM EDT): Ordering US of Head Neck soft tissue. Ordering lab work for further investigation. Recurrent major depressive disorder, in remiss n 10/06/2022 Assessment & Plan (07/11/2023 4:08 PM EST): Follow up with therapist Q1-2weeks Psychiatrist - Continues with sertraline 50mg daily Denies SI/HI/thoughts of self harm Patient Health Questionnaire-9 Score: 5 Assessment & Plan (10/06/2022 1:38 PM EDT): Follow up with therapist and psychiatrist during upcoming appt Denies SI/HI/thoughts of self harm Behavioral Health consult completed today after appt Routine health maintenance 05/18/2022 Overview (11/28/2024): -Last PE: 11/27/24 -Dental: established with dental home -Pap: 05/15/22 NIL (annual while on Humira). Due. -Colorectal CA screening: history of colon CA in family members in 30s, pt established with GI. Colonoscopy wnl August 2024. Assessment & Plan (09/08/2022 9:40 PM EDT): [...] with GI Macromastia 05/15/2022 Assessment & Plan (11/28/2024 7:30 AM EDT): - Conservative management: Completed PT sessions w/o noted resolution of back pain - Current BMI 35, goal for BMI < 33 prior to consult - Denies or for past 18 months - Plan: increase healthy lifestyle interventions and f/up with PCP in 3 months. If BMI < 33, plan to proceed with referral to [facility] Plastic surgery for consideration of breast reduction Assessment & Plan (09/08/2022 9:38 PM EDT): -Completed PT sessions w/o noted resolution of back pain -Referral to plastic surgery for consideration of Breast reduction 09/08/22 Assessment & Plan (05/15/2022 10:00 AM EST): -History of upper back pain, previously referred to physical therapy -Consideration/interest in possibility of breast reduction in the future r/t back pain GERD (gastroesophageal reflux disease) 2 Overview (07/11/2023): Followed by [facility] GI Previously on famotidine, symptoms currently well controlled off medication Encourage lifestyle interventions (if applicable) to decrease symptoms including avoid triggering foods (such as coffee, chocolate, fatty foods), tobacco cessation, eating 2-3 hours before lying down, and weight loss. H. pylori infection 05/05/2022 Overview (01/23/2025): Confirmed eradicated by stool antigen 04/2022 Hidradenitis suppurativa 04/07/2022 Overview (07/11/2023): -Continues with [...] Problem Noted Date Diagnosed Date Resolved Date High blood pressure 06/15/2017 06/19/19 24 Infected pilonidal cyst 05/13/201606/01 Encounters Date Type Department Care Team Description 01/23/2025 10:00 AM EDT Procedure Visit [facility]S [address] [place] [address] Joycelyn Calvo MD Cervical cancer screening (Primary Dx) 01/23/2025 Travel 01/15/2025 Telephone [facility] [address] [place] [address] Lynn Hinojosa FNP Call Back Request 01/02/2025 9:15 AM EDT Office Visit [facility] [address] [place] [address] Anthony Salas MD Hidradenitis suppurativa (Primary Dx); Acne vulgaris 01/02/2025 Telephone [facility] [address] [place] [address] Lynn Hinojosa FNP Medication Question 01/02/2025 Travel 12/26/2024 Travel 12/22/2024 Refill [facility] [address] [place] [address] Lynn Hinojosa FNP Iron deficiency anemia, unspecified iron deficiency anemia type 12/20/2024 Telephone [facility] [address] [place] [phone] Ena Kenyon [place] 12/19/2024 Telephone [facility] [address] [place] [address] Lynn Hinojosa FNP Appointment Request 11/27/2024 10:30 AM EDT Office Visit [facility] [address] [place] [address] Lynn Hinojosa FNP Encounter for routine history and physical examination of adult (Primary Dx); Routine health maintenance; Iron deficiency anemia, unspecified iron deficiency anemia type; Migraine without aura and without status migrainosus, not intractable; Recurrent major depressive disorder, in remission (CMS/HCC); Macromastia; Epigastric pain; Recurrent acute tonsillitis; Palpitations; Vitamin D insufficiency; Elevated blood pressure reading; Hidradenitis suppurativa 11/27/2024 Travel 11/26/2024 Travel 11/20/2024 Patient Outreach [facility] [address] [place] [address] Lynn Hinojosa FNP Pre-visit Planning (Pre visit planning LVM ) from Last 3 Months Immunizations Immunization Administration Dates Next Due COVID-19 Non-US Vaccine, Pro duct Unknown 12/10/2003 DTaP 01/12/2005, 3,06/28/2001,04/28 DTaP / IPV 02/09/2001 [...] Moderna Covid-19 Vaccine 12+ 05/26/2021,11/26/19 21,10/04/2020 Novel [id number], all formulations 07/26/2009 Pneumococcal Conjugate PCV 13 [...] Mass Index 36.79 01/23/2025 9:55 AM EDT Plan of Treatment Upcoming Encounters Date Type Department Care Team (Late st Contact Info) Description 03/26/2025 9:00 AM EDT Office Visit [facility] [address] [place] [address] Lynn Hinojosa, BUSINESS SERVICES TECH [address] [place] [address] Health Maintenance Due Date Last Done Comments Influenza Vaccine (#1) 2025 , 02/04/2023, 04/07/2022, Additional history exists COVID-19 Vaccine ( season) 2025 05/26/2021, 11/25/2020, 10/04/2020 Postponed from 01/30/2024 (Patient Refused) Family Planning (PISQ) 04/09/2025 04/09/2024 Pap Smear 05/15/2025 05/15/2022 SDOH Screening 08/22/2025 08/22/2024 Alcohol/Substance Use Screening 11/27/2025 11/27/2024 Depression Screening 11/27/2025 11/27/2024, 11/28/19 25 Disability Screening 12/26/2025 12/26/2024 Tobacco Screening 01/23/2026 01/23/2025 DTaP/Tdap/Td Vaccines (8 - Td or Tdap) 04/07/2032 04/07/2022, 01/11/2012, 01/12/2005, Additional history exists Zoster Vaccines (1 of 2) 2050 RSV Patients and Patients Aged 60 years or older (1 - 1-dose 75+ series) 12/07/2075 HIB Vaccines Completed 04/06/2002, 11/2001, 06/28/2001, Additional history exists Pneumococcal Vaccine: Pediatrics (0 to 5 Years) and At-Risk Patients (6 to 49) Years Completed 12/15/2002, 12/15/2002, 06/28/2001, Additional history exists IPV Vaccines Completed 01/12/2005, 11/2001, 04/28/2001, Additional history exists HPV Vaccines Completed 02/11/2015, 01/29, 02/21/2013, Additional history exists Hepatitis A Vaccines Completed 09/12/2015, 02/12/20 15 Meningococcal Vaccine Completed 03/08/2019, 012 Hepatitis B Vaccines Completed 08/28/2022, 06/05/2022, 06/28/2001, Additional history exists Hepatitis C Screening Completed 07/09/2023 HIV Screening Completed 10/11/2023, 07/09/2023 Meningococcal B Vaccine Aged Out No l onger eligible based on patient's age to complete this topic RSV under 20 months Aged Out No longe r eligible based on patient's age to complete this topic Rotavirus Vaccines Aged Out No longer eligible based on patient's age to complete this topic Procedures Procedure Name Priority Date/Time Associated Diagnosis Comments HIV 1/2 ANTIGEN/ANTIBODY, FOURTH GENERATION W/RFL Routine 10/11/2023 11:25 AM EDT Lymphadenopathy of right cervical region HEPATITIS C VIRAL RNA, QUANTITATIVE, REAL-TIME PCR Routine 07/09/2023 10:31 AM EST Encounter for routine history and physical examination of adult PAP SMEAR Routine 05/15/2022 12:00 AM EST from Last 3 Months or Most Recently Relevant to Health Maintenance Results * HIV-1/2 Antigen and Antibodies, Fourth Generation, with Reflexes (10/11/2023 11:25 AM EDT) Pathologist [facility] HIV AB/AG Nonreactive Nonreactive [facility] Comment:HIV-1 p24 Ag and/or HIV-1/HIV-2 Ab not detected.A test result that is nonreactive does not exclude thepossibility of exposure to or infection with HIV-1 and/orHIV-2. Nonreactive results in this assay for individualswith prior exposure to HIV-1 and/or HIV-2 may be due toantigen and antibody levels that are below the limit ofdetection of this assay.The [employer] HIV Ag/Ab Combo assay result andsupplemental assay results should be interpreted inconjunction with the patient's clinical presentation,history and other laboratory results. If the results areinconsistent with clinical evidence, additional testing issuggested to confirm the result. Blood Venous blood specimen / Unknown 10/11/2023 11:25 AM EDT 10/11/2023 2:32 PM EDT us Joycelyn Calvo MD LAB BLOOD ORDERABLES Final Re sult Performing Organization Address [facility]/ZIP Co de Phone Number [facility] [address] [place] [phone] * Hepatitis C Viral RNA, Quantitative, Real-Time PCR (07/09/2023 10:31 AM EST) Hepatitis C Viral Load <15 NOT DETECTED NOT DETECTED IU/mL [facility] HCV Log PCR <1.18 NOT DETECTED NOT DETECTED Log IU/mL [facility] Comment:This test was perfor med using Real-Time Polymerase ChainReaction.Reportable Range: 15 IU/mL to 100,000,000 IU/mL(1.18 Log IU/mL to 8.00 Log IU/mL).The analytical performance characteristics of thisassay have been determined by [employer].The modifications have not been cleared or approved bythe FDA. This assay has been validated pursuant to theCLIA regulations and is used for clinical purposes.For more information on this test, go to:http://education.[employer]/faq/RAY01o6(This link is being provided for informational/educational purposes only.)THIS TEST WAS PERFORMED AT:[employer] [place] [phone] ROJO MD Blood 07/09/2023 10:3 1 AM EST 07/09/2023 2:15 PM EST us Lynn Hinojosa BUSINESS SERVICES TECH LAB BLOOD ORDERABLES Final Res ult Performing Organization Address [facility]/ZIP Co de Phone Number [facility] [address] [place] [phone] * Pap Smear (05/15/2022 12:00 AM EST) Swab us Historical Provider LAB CYTOLOGY ORDERABLES F inal Result Performing Organization Address [facility]/ZIP Co de Phone Number [facility] [address] [place] [phone] from Last 3 Months or Most Recently Relevant to Health Maintenance Insurance [facility] C[address] Care Teams Road Boss Relationship Specialty Start Date End Date Lynn Hinojosa FNP [address] [place] [address] PCP - General Family Medicine 01/20/[address] [place] [address] Gastroenterology 05/28/24
--- OUTSIDE RECORDS SUMMARY | 2025-01-23 19:20 | XMS_ITS | Encounter Summary ---
Author Organization [employer] Address [address] [place] [address] 7 [place] [address] Care Team Providers Care Manager Commodities Name Role Phone Lynn Hinojosa OPTICIANRY TEACHER Primary Care Provider August Unavailable Encounter Details Date Type Department Care Team (Late st Contact Info) Description 05/14/2022 Orders Only [facility] [address] [place] [address] Sofiya Garcia, CARMEN Social History Tobacco Use [...] 03/26/2025 9:00 AM EDT Office Visit [facility] [address] [place] [address] Lynn Hinojosa FNP [address] [place] [address] documented as of this encounter Visit Diagnoses Not on filedocumented in this encounter Care Teams Manager Commodities Relationship Specialty Start Date End Date Lynn Hinojosa FNP [address] [place] [address] PCP - General Family Medicine 01/20/22 Tadeo Kaye [address]rd [place] [address] Gastroenterology 05/28/24 documented as of this encounter
--- OUTSIDE RECORDS SUMMARY | 2025-01-23 19:20 | XMS_ITS | Clinical Summary ---
Author Organization [facility] Address [address] [place] [address] Care Team Providers Care Chicken Hatchery Helper Name Role Phone Edith Wells Primary Care Provider [phone] Social History Tobacco Use Types Packs/Day Years [...] 06/09/2002, Additional history exists Influenza Vaccine (#1) 2025 5, 03/31/2014, 01/08/2011, Additional history exists Pneumococcal Vaccine Completed 12/15/2002, 06/28/2001, 04/28/2001, Additional history exists RSV Ped < 20 months Aged Out No longe r eligible based on patient's age to complete this topic Care Teams Chicken Hatchery Helper Relationship Specialty Start Date End Date Edith Wells [address] [facility] [place] [address] PCP - General Pediatrics 07/22/20
--- OUTSIDE RECORDS SUMMARY | 2025-01-23 19:20 | XMS_ITS | Clinical Summary ---
Author Organization [employer] [facility] ity Address [address] [place] [address] Care Team Providers Care Ladies Suit Operator Name Role Phone Edith Wells NP Primary Care Provider [phone] Social History Tobacco Use Types Packs/Day Years [...] Cervical Cancer Screening: P ap Smear 2021 HIV Screening 05/03/2022 Hepatitis C Screening 05/03/2022 Social Influencers of Health Screening 05/03/2022 Depression Screening 05/31/2024 Influenza Vaccine (#1) 2025 HIB Vaccines Aged Out No longer [...] patient's age to complete this topic Meningococcal B Vaccine Aged Out No l onger eligible based on patient's age to complete this topic Pneumococcal Vaccine: Pediat rics (0 to 5 Years) and At-Risk Patients (6 to 49 Years) Aged Out No longer eligible b ased on patient's age to complete this topic RSV Immunization Patients Un francesco 20 months Aged Out No longer eligible b ased on patient's age to complete this topic Varicella Vaccines Aged Out No longer eligible based on patient's age to complete this topic Care Teams Ladies Suit Operator Relationship Specialty Start Date End Date Edith Wells NP [facility] [address] [place] [address] PCP - General Pediatrics 07/22/20
--- OUTSIDE RECORDS SUMMARY | 2025-01-23 19:20 | XMS_ITS | Encounter Summary ---
Author Organization [facility] Address [address] [place] [address] Phone Care Team Providers Care Power Plant Engineer Name Role Phone Elly Mayes MD Primary Care Provider [phone] Encounter Details Date Type Department Care Team (Late st Contact Info) Description 11/20/2009 Documentation [facility] [address] [place], [place] [phone] Family Medicine, Physician [address] [place] [address] Social History Tobacco Use Types Packs/Day Years [...] on filedocumented in this encounter Care Teams Power Plant Engineer Relationship Specialty Start Date End Date Elly Mayes MD [address] [place] [address] [place] [address] PCP - General 01/08/17 09/09/22 documented as of this encounter
--- OUTSIDE RECORDS SUMMARY | 2025-01-23 19:20 | XMS_ITS | Encounter Summary ---
Author Organization [employer] Address [address] [place] [address] 7 [place] [address] Care Team Providers Care Velocity Shooter Name Role Phone Lynn Hinojosa Primary Care Provider [phone] August Reason for Visit * Reason Onset Date Comments Call Back Request 01/15/2025 Encounter Details Date Type Department Care Team ([facility] Contact Info) Description 01/15/2025 Telephone [facility] [address] [place], [place] [phone] Lynn Hinojosa FNP [address] [place] [address] Call Back Request Social History Tobacco Use Types Packs/Day [...] encounter Miscellaneous Notes * Telephone Encounter - Michelle Means - 01/15/2025 8:53 AM EDT Tc from pt requesting a call back to get clarification if pap can be done while she is on her menstrual cycle. Contact pt at [phone] documented in this encounter Plan of Treatment Upcoming Encounters Date Type Department Care Team ([facility] Contact Info) Description 03/26/2025 9:00 AM EDT Office Visit [facility] [address] [place] [address] Lynn Hinojosa, SERINA [address] [place], [place] [phone] documented as of this encounter Visit Diagnoses Not on filedocumented in this encounter Additional Health Concerns Assessment Noted Time PHQ-9 Depression Total Score: 8 11/28/19 25 11:38 AM EDT documented as of this encounter Care Teams Velocity Shooter Relationship Specialty Start Date End Date Lynn Hinojosa FNP [address] [place] [address] PCP - General Family Medicine 01/20/22August [address] [place] [address] Drive [address]rd [place] [address] Gastroenterology 05/28/24 documented as of this encounter
--- OUTSIDE RECORDS SUMMARY | 2025-01-23 19:20 | XMS_ITS | Encounter Summary ---
Author Organization [facility] Address [address] [place] [address] Phone Care Team Providers Care Flumer Name Role Phone Elly Mayes MD Primary Care Provider [phone] Encounter Details Date Type Department Care Team (Late st Contact Info) Description 01/14/2017 Conversion Encounter [facility] [address] [address] Social History Tobacco Use Types Packs/Day Years [...] on filedocumented in this encounter Care Teams Flumer Relationship Specialty Start Date End Date Elly Mayes MD [address] [place] [address] PCP - General 01/08/17 09/09/22 documented as of this encounter
--- OUTSIDE RECORDS SUMMARY | 2025-01-23 19:20 | XMS_ITS | Encounter Summary ---
Author Organization [facility] Address [address] [place] [address] Phone Care Team Providers Care Oracle Database Architect Name Role Phone Elly Mayes MD Primary Care Provider [phone] Encounter Details Date Type Department Care Team (Late st Contact Info) Description 04/11/2012 Documentation [facility] Family Medicine [address] [place], [place] [phone] Family Medicine, Physician [address] [place] [address] Social History Tobacco Use Types Packs/Day Years [...] on filedocumented in this encounter Care Teams Oracle Database Architect Relationship Specialty Start Date End Date Elly Mayes MD [address] [place] [address] [place] [address] PCP - General 01/08/17 09/09/22 documented as of this encounter
--- OUTSIDE RECORDS SUMMARY | 2025-01-23 19:20 | XMS_ITS | Encounter Summary ---
Author Organization [employer] Address [address] [facility] 7 [place] [address] Care Team Providers Care Rock Cutter Name Role Phone Lynn Hinojosa Primary Care Provider [phone] August Reason for Visit * Reason Onset Date Comments Appointment Request 08/21/2022 Encounter Details Date Type Department Care Team (Late st Contact Info) Description 08/21/2022 Telephone [facility] MED[facility] [address] [place] [address] Lynn Hinojosa FNP [address] [place], [place] [phone] Appointment Request Social History Tobacco Use Types [...] B #2 ) Please contact pt at [phone] documented in this encounter Plan of Treatment Upcoming Encounters Date Type Department Care Team (Late st Contact Info) Description 03/26/2025 9:00 AM EDT Office Visit [facility] & [facility]EDS [address] [place], [place] [phone] Lynn Hinojosa FNP [address] [place] [address] documented as of this encounter Visit Diagnoses Not on filedocumented in this encounter Care Teams Rock Cutter Relationship Specialty Start Date End Date Lynn Hinojosa FNP [address] [place] [address] PCP - General Family Medicine 01/20/22August [address] [place] [address] Drive 3rd [place] [address] Gastroenterology 05/28/24 documented as of this encounter
--- OUTSIDE RECORDS SUMMARY | 2025-01-23 19:20 | XMS_ITS | Encounter Summary ---
Author Organization [facility] Address [address] [place] [address] Phone Care Team Providers Care Airport Maintenance Chief Name Role Phone Elly Mayes MD Primary Care Provider [phone] Encounter Details Date Type Department Care Team (Late st Contact Info) Description 03/29/2012 Documentation [facility] [place] [address] [place], [place] [phone] Family Medicine, Physician [address] [place] [address] Social History Tobacco Use Types Packs/Day Years [...] on filedocumented in this encounter Care Teams Airport Maintenance Chief Relationship Specialty Start Date End Date Elly Mayes MD [address] [place] [address] [place] [address] PCP - General 01/08/17 09/09/22 documented as of this encounter
--- OUTSIDE RECORDS SUMMARY | 2025-01-23 19:20 | XMS_ITS | Encounter Summary ---
Author Organization [facility] Address [address] [place] [phone] Phone Care Team Providers Care Ux Ui Designer Name Role Phone Elly Mayes MD Primary Care Provider [phone] Encounter Details Date Type Department Care Team (Late st Contact Info) Description 06/06/2012 Documentation [facility] Family Medicine [address] [place], [place] [phone] Family Medicine, Physician [address] [place] [address] Social History Tobacco Use Types Packs/Day Years [...] on filedocumented in this encounter Care Teams Ux Ui Designer Relationship Specialty Start Date End Date Elly Mayes MD [address] [place] [address] [place] [address] PCP - General 01/08/17 09/09/22 documented as of this encounter
--- OUTSIDE RECORDS SUMMARY | 2025-01-23 19:20 | XMS_ITS | Encounter Summary ---
Author Organization [facility] Address [address] [place] [address] Phone Care Team Providers Care Vp Software Engineering Name Role Phone Elly Mayes MD Primary Care Provider Encounter Details Date Type Department Care Team (Late st Contact Info) Description 07/21/2012 Documentation [facility] [place] Family Medicine [address] [place], [place] [phone] Family Medicine, Physician [address] [place] [address] Social History Tobacco Use Types Packs/Day Years [...] on filedocumented in this encounter Care Teams Vp Software Engineering Relationship Specialty Start Date End Date Elly Mayes MD [address] [place] [address] [place] [address] PCP - General 01/08/17 09/09/22 documented as of this encounter
--- OUTSIDE RECORDS SUMMARY | 2025-01-23 19:20 | XMS_ITS | Encounter Summary ---
Author Organization [employer] Address [address] [place] [address] 7 [place] [address] Care Team Providers Care Sales Executive Name Role Phone Lynn Hinojosa Primary Care Provider [phone] August Reason for Visit * Reason Comments Med Refill Encounter Details Date Type Department Care Team ([facility] st Contact Info) Description 09/23/2023 Refill [facility] MED & PEDS [address] [place], [place] [phone] Lynn Hinojosa FNP [address] [place] [address] Social History Tobacco Use Types Packs/Day Years [...] Description 03/26/2025 9:00 AM EDT Office Visit [facility] MED & PEDS [address] [place] [address] Lynn Hinojosa FNP [address] [place] [address] documented as of this encounter Visit Diagnoses Not on filedocumented in this encounter Additional Health Concerns Assessment Noted Time PHQ-9 Depression Total Score: 5 07/09/19 24 9:39 AM EST documented as of this encounter Care Teams Sales Executive Relationship Specialty Start Date End Date Lynn Hinojosa FNP [address] [place] [address] PCP - General Family Medicine 01/20/[address] [place] [address] 3rd [place] [address] Gastroenterology 05/28/24 documented as of this encounter
--- OUTSIDE RECORDS SUMMARY | 2025-01-23 19:20 | XMS_ITS | Clinical Summary ---
Author Organization [facility] Address [address] [place] [phone] Phone Care Team Providers Care Clothing Presser Name Role Phone Unavailable Primary Care Provider [...] Diabetes mellitus, No family history of Sudden /TN under age 55, Family history of Cancer, [...] 88 07/25/2015 12:00 AM EST Temperature 36.8 C (98.3 F) 09/12/2015 12:00 AM EDT Respiratory Rate - - Oxygen Saturation 95% 05/09/2012 12:00 AM EST Inhaled Oxygen Concentration - - Weight 120 kg (265 lb 3.2 oz) 09/12/2015 12:00 A M EDT Height 180.3 cm (5' 11 ) 09/12/2015 12:00 AM EDT Body Mass Index 36.99 09/12/2015 12:00 AM EDT Plan of Treatment Health Maintenance Due Date Last Done Comments DTaP,Tdap,and Td Vaccines (7 - Td or Tdap) 01/10/2022 01/11/2012, 01/12/2005, 06/09/2002, Additional history exists COVID-19 Vaccine ( season) 2024 Influenza Vaccines (#1) 2024 02/12/20 15, 03/31/2014, 02/21/2013, Additional history exists Hepatitis B Vaccines Completed 06/28/2001, 01/05/2001, 2000 [...] Hepatitis A Vaccines Completed 09/12/2015, 02/12/20 15 Men B Vaccine Aged Out No longer elig ible based on patient's age to complete this topic
--- OUTSIDE RECORDS SUMMARY | 2025-01-23 19:20 | XMS_ITS | Encounter Summary ---
Author Organization [facility] Address [address] [place] [address] Phone Care Team Providers Care Tool Design Drafter Name Role Phone Elly Mayes MD Primary Care Provider [phone] Encounter Details Date Type Department Care Team (Late st Contact Info) Description 11/28/2012 Documentation [facility] [place] Family Medicine [address] [place], [place] [phone] Family Medicine, Physician [address] [place] [address] Social History Tobacco Use Types Packs/Day Years [...] on filedocumented in this encounter Care Teams Tool Design Drafter Relationship Specialty Start Date End Date Elly Mayes MD [address] [place] [address] [place] [address] PCP - General 01/08/17 09/09/22 documented as of this encounter
--- OUTSIDE RECORDS SUMMARY | 2025-01-23 19:20 | XMS_ITS | Encounter Summary ---
Author Organization [facility] Address [address] [place] [address] Phone Care Team Providers Care Interventional Radiologist Name Role Phone Elly Mayes MD Primary Care Provider [phone] Encounter Details Date Type Department Care Team (Late st Contact Info) Description 04/08/2012 Documentation [facility] [place] [address] [place], [place] [phone] Family Medicine, Physician [address] [place] [address] Social History Tobacco Use Types Packs/Day Years [...] on filedocumented in this encounter Care Teams Interventional Radiologist Relationship Specialty Start Date End Date Elly Mayes MD [address] [place] [address] [place] [address] PCP - General 01/08/17 09/09/22 documented as of this encounter
--- OUTSIDE RECORDS SUMMARY | 2025-01-23 19:20 | XMS_ITS | Encounter Summary ---
Author Organization [employer] Address [address] [place] [address] 7 [place] [address] Care Team Providers Care Ladies Underwear Operator Name Role Phone Lynn Hinojosa SERINA Primary Care Provider [phone] August Unavailable Encounter Details Date Type Department Care Team (Late st Contact Info) Description 05/12/2022 Abstract [facility] [address] [place] [address] Provider, MD Robert Social History Tobacco Use [...] 9:00 AM EDT Office Visit [facility] MED & PEDS [address] [place] [address] Lynn Hinojosa FNP [address] [place] [address] documented as of this encounter Visit Diagnoses Not on filedocumented in this encounter Care Teams Ladies Underwear Operator Relationship Specialty Start Date End Date Lynn Hinojosa FNP [address] [place] [address] PCP - General Family Medicine 01/20/22 [address] 3rd [place] [address] Gastroenterology 05/28/24 documented as of this encounter
--- OUTSIDE RECORDS SUMMARY | 2025-01-23 19:20 | XMS_ITS | Encounter Summary ---
Author Organization [employer] Address [address] [place] [address] 7 [place] [address] Care Team Providers Care Check Pilot Name Role Phone Lynn Hinojosa Primary Care Provider [phone] August Reason for Visit * Reason Comments Med Refill Encounter Details Date Type Department Care Team ([facility] st Contact Info) Description 12/22/2024 Refill [facility] MED & PEDS [address] [place], [place] [phone] Lynn Hinojosa FNP [address] [place] [address] Iron deficiency anemia, unspecified iron deficiency anemia type Social History Tobacco Use Types Packs/Day Years [...] Upcoming Encounters Date Type Department Care Team ([facility] Contact Info) Description 03/26/2025 9:00 AM EDT Office Visit [facility] MED & [facility]EDS [address] [place] [address] Lynn Hinojosa FNP [address] [place] [address] documented as of this encounter Visit Diagnoses Diagnosis Iron deficiency anemia, unspecified iron deficiency anemia type documented in this encounter Additional Health Concerns Assessment Noted Time PHQ-9 Depression Total Score: 8 11/28/19 25 11:38 AM EDT documented as of this encounter Care Teams Check Pilot Relationship Specialty Start Date End Date Lynn Hinojosa FNP [address] [place] [address] PCP - General Family Medicine 01/20/[address] 3rd [place] [address] Gastroenterology 05/28/24 documented as of this encounter
== END 2025-01-23 19:18 | disposition home or self-care (01) ==
LOC: HO.HHCLNP 19:17
PROVIDERS: Visit Provider Family Medicine
DX: Z12.4 Encounter for screening for malignant neoplasm of cervix (principal)
CPT/HCPCS: 88175